=== PATIENT | female | born 1985 | race American Indian/Alaskan Native ===

== ENCOUNTER 2017-07-20 19:43 | Inpatient (IN) | payer OTHER ==
[2017-07-20 20:53] LABS: Mean Corpuscular HGB Conc 31 % (30-34); Platelet Count 333 K/mm3 (140-440); Red Blood Count 6.82 M/mm3 (3.65-5.03); Red Cell Distribution Width 19.9 % (13.2-15.2)
[2017-07-20 21:00] LABS: Alanine Aminotransferase 13 units/L (7-56); Albumin 3.4 g/dL (3.9-5); BUN/Creatinine Ratio 60; Blood Urea Nitrogen 12 mg/dL (7-17); Hemolysis Index 8
[2017-07-20 21:07] LABS: Hematocrit 43.3 % (30.3-42.9); Hemoglobin 13.4 gm/dl (10.1-14.3); Mean Corpuscular Volume 63 fl (79-97)
[2017-07-20 21:08] LABS: Mean Corpuscular Hemoglobin 20 pg (28-32)
[2017-07-20 21:10] LABS: Calcium 9.3 mg/dL (8.4-10.2)
[2017-07-20] MEDS ORDERED: ZOFRAN IV ONE (21:15)
[2017-07-20] MEDS ORDERED: NACL 0.9% 1000 ML 1,000 ML IV ONE ×2 (21:15→23:27)
[2017-07-20] MEDS ORDERED: MORPHINE IV ONE (21:15)
--- NOTE | 2017-07-20 21:19 | Emergency Department Report ---
HPI - General Chief Complaint: Abdominal Pain Time Seen by Provider: 07/20/17 21:02 - HPI HPI: This is a 32 year-old female presents to the emergency department with a complaint of a one-week history of nausea, vomiting, diarrhea and some abdominal discomfort. She says that the vomiting started off occurring about once or twice per day but lately it has been much more consistent and now she is just bringing up bile. She has about 1-2 loose bowel movements per day. The abdominal pain is more on the left side of the abdomen. She has not taken anything for her symptoms prior to presentation. No recent travel or sick contacts at home. She has a primary care physician, Dr. Stanton, but has not seen him regarding her symptoms. She has a history of hypothyroidism and [id number] diabetes on metformin. ED Past Medical Hx - Past Medical History Hx Hypertension: No Hx Congestive Heart Failure: No Hx Diabetes: Yes Hx Deep Vein Thrombosis: No Hx Renal Disease: No Hx Sickle Cell Disease: No Hx Seizures: No Hx Asthma: No Hx COPD: No Hx HIV: No - Surgical History Past Surgical History?: No - Social History Smoking Status: Never Smoker Substance Use Type: None - Medications Home Medications: Home Medications Medication Instructions Recorded Confirmed Last Taken Type Ciprofloxacin [Ciprofloxacin ORAL 500 mg PO Q12H #20 ml 04/20/16 07/20/17 Unknown Rx LIQ] Famotidine [Pepcid] 10 mg PO BID #20 tablet 04/20/16 07/20/17 Unknown Rx LORazepam [Ativan] 0.5 mg PO BID PRN #10 tab 04/20/16 07/20/17 Unknown Rx Methimazole [Tapazole] 10 mg PO Q24HR #30 tablet 04/20/16 07/20/17 Unknown Rx Metoprolol [Lopressor TAB] 25 mg PO BID #60 tablet 04/20/16 07/20/17 Unknown Rx hydrALAZINE [Apresoline TAB] 25 mg PO Q8HR #90 tablet 04/20/16 07/20/17 Unknown Rx metroNIDAZOLE [Flagyl TAB] 500 mg PO TID #30 tablet 04/20/16 07/20/17 Unknown Rx oxyCODONE /ACETAMINOPHEN [Percocet 1 tab PO QHS PRN #10 tablet 04/20/16 Unknown Rx 5/325 mg] ED Review of Systems ROS: Stated complaint: ABDOMINAL PAIN,VOMITING,HIGH HEART BEAT Other details as noted in HPI Comment: All other systems reviewed and negative Constitutional: denies: chills, fever Eyes: denies: eye pain, eye discharge, vision change ENT: denies: ear pain, throat pain Respiratory: denies: cough, shortness of breath, wheezing Cardiovascular: denies: chest pain, palpitations Gastrointestinal: abdominal pain, nausea, vomiting, diarrhea Genitourinary: denies: urgency, dysuria, discharge Musculoskeletal: denies: back pain, joint swelling, arthralgia Skin: denies: rash, lesions Neurological: denies: headache, weakness, paresthesias Physical Exam - Physical Exam Vital Signs: Vital Signs 07/20/17 07/20/17 20:05 20:58 Temperature 97.7 F Pulse Rate 140 H 120 H Respiratory 16 16 Rate Blood Pressure 153/111 Blood Pressure 188/112 [Left] O2 Sat by Pulse 98 95 Oximetry Physical Exam: GENERAL: The patient is well-developed well-nourished. HENT: Normocephalic. Atraumatic. Patient has moist mucous membranes. EYES: Extraocular motions are intact. Pupils equal reactive to light bilaterally. NECK: Supple. Trachea is midline. CHEST/LUNGS: Clear to auscultation. There is no respiratory distress noted. HEART/CARDIOVASCULAR: Regular. There is moderate tachycardia. There is no murmur. ABDOMEN: Abdomen is soft. There is some generalized tenderness to palpation of the abdomen. No guarding or rebound tenderness. Patient has normal bowel sounds. There is no abdominal distention. SKIN: There is no rash. There is no edema. There is no diaphoresis. NEURO: The patient is awake, alert, and oriented. The patient is cooperative. The patient has no focal neurologic deficits. The patient has normal speech. MUSCULOSKELETAL: There is no tenderness or deformity. There is no limitation range of motion. There is no evidence of acute injury. ED Course Vital Signs 07/20/17 07/20/17 20:05 20:58 Temperature 97.7 F Pulse Rate 140 H 120 H Respiratory 16 16 Rate Blood Pressure 153/111 Blood Pressure 188/112 [Left] O2 Sat by Pulse 98 95 Oximetry ED Medical Decision Making - Lab Data Result diagrams: 07/20/17 20:11 07/20/17 20:11 - Radiology Data Radiology results: report reviewed, image reviewed interpreted by me: Abdominal x-ray shows nonspecific nonobstructive bowel gas. EXAM: CT ABDOMEN PELVIS W CON HISTORY: Abd pain TECHNIQUE: Standard enhanced CT of the abdomen and pelvis. Coronal and sagittal reconstruction was also performed. Delayed imaging through the kidneys and bladder was obtained. Contrast: 100 mL Omnipaque 300 given IV. PRIORS: CT a/P 04/17/2016 FINDINGS: Within the abdomen, the liver, spleen, pancreas, gallbladder, adrenal glands, and kidneys are unremarkable. There is new shotty adenopathy in the para-aortic region bilaterally and within the mesentery. Significance is uncertain. There are a few small loops of proximal small bowel which are mildly distended measuring up to 3.6 cm in the upper abdomen. The significance is uncertain. No transition zone is seen to suggest obstruction. No fluid collection, inflammatory change, or free air is seen within the abdomen or pelvis. The appendix is normal. Within the pelvis, the bladder is unremarkable. The uterus is normal. There is a new 5.0 x 5.7 x 4.4 cm cystic focus in the right adnexa, likely an ovarian cyst. Images through the upper abdomen include the lung bases which are expanded and clear. Bony structures show no focal abnormalities and are intact. IMPRESSION: 1. Mild distention of a few proximal loops of small bowel in the upper abdomen. Findings suggest a mild ileus, possibly viral gastroenteritis. 2. New shotty adenopathy in the retroperitoneum and mesentery. Significance is uncertain.. Findings may be reactive 3. A large new 5 cm cyst in the right adnexa, likely ovarian. Transcribed By: [facility] Dictated By: SUNDEEP BURROWS MD Electronically Authenticated By: SUNDEEP BURROWS MD Signed Date/Time: 07/20/171911 - Medical Decision Making Patient presents with one-week history of nausea, vomiting and diarrhea. She appears to have dehydration with 80 ketones in the urine. She has moderate tachycardia that may be secondary to her dehydration and her discomfort but also may be consistent with her history of hyperthyroidism. TSH was basically 0 , and free T4 of [address] of the abdomen and pelvis shows some gastroenteritis versus ileus, some adenopathy and a right adnexal cyst. Patient will be admitted to the hospital for further rehydration, rate control, evaluation and treatment, and has been accepted by the hospitalist, Dr. Montgomery. - Differential Diagnosis bowel obstruction, diverticulitis, colitis, gastroenteritis, thyrotoxicosis Critical Care Time: No Critical care attestation.: If time is entered above; I have spent that time in minutes in the direct care of this critically ill patient, excluding procedure time. ED Disposition Clinical Impression: Gastroenteritis, Colitis, Dehydration Nausea & vomiting Qualifiers: Vomiting type: unspecified Vomiting Intractability: non-intractable Qualified Code(s): R11.2 - Nausea with vomiting, unspecified Thyrotoxicosis Qualifiers: Thyrotoxicosis type: unspecified thyrotoxicosis type Thyrotoxic crisis or storm presence: with thyrotoxic crisis or storm Qualified Code(s): E05.91 - Thyrotoxicosis, unspecified with thyrotoxic crisis or storm Disposition: -09 OP ADMIT IP TO THIS HOSP Is pt being admited?: Yes Condition: Stable Time of Disposition: 23:50
[2017-07-20 22:39] LABS: Band Neutrophils # (Manual) 0.3 K/mm3; Total Cells Counted 100
[2017-07-20 22:40] LABS: Anisocytosis 2+
[2017-07-20 22:41] LABS: Hypochromasia 1+; Ovalocytes 1+
[2017-07-20 22:42] LABS: Platelet Estimate Consistent w Auto
--- NOTE | 2017-07-20 23:13 | XRay Report ---
FINAL REPORT PROCEDURE: XR ABDOMEN 2V TECHNIQUE: Abdominal series, including supine and upright AP views. HISTORY: Abd pain COMPARISON: No prior studies are available for comparison. FINDINGS: Bowel gas pattern:Nonobstructive . Masses or calcifications:None . Bony structures:No significant abnormality . Pneumoperitoneum:None . Other:No significant findings . IMPRESSION: No acute abnormality.
--- NOTE | 2017-07-20 23:15 | Cat Scan Report ---
FINAL REPORT EXAM: CT ABDOMEN PELVIS W CON HISTORY: Abd pain TECHNIQUE: Standard enhanced CT of the abdomen and pelvis. Coronal and sagittal reconstruction was also performed. Delayed imaging through the kidneys and bladder was obtained. Contrast: 100 mL Omnipaque 300 given IV. PRIORS: CT a/P 04/17/2016 FINDINGS: Within the abdomen, the liver, spleen, pancreas, gallbladder, adrenal glands, and kidneys are unremarkable. There is new shotty adenopathy in the para-aortic region bilaterally and within the mesentery. Significance is uncertain. There are a few small loops of proximal small bowel which are mildly distended measuring up to 3.6 cm in the upper abdomen. The significance is uncertain. No transition zone is seen to suggest obstruction. No fluid collection, inflammatory change, or free air is seen within the abdomen or pelvis. The appendix is normal. Within the pelvis, the bladder is unremarkable. The uterus is normal. There is a new 5.0 x 5.7 x 4.4 cm cystic focus in the right adnexa, likely an ovarian cyst. Images through the upper abdomen include the lung bases which are expanded and clear. Bony structures show no focal abnormalities and are intact. IMPRESSION: 1. Mild distention of a few proximal loops of small bowel in the upper abdomen. Findings suggest a mild ileus, possibly viral gastroenteritis. 2. New shotty adenopathy in the retroperitoneum and mesentery. Significance is uncertain.. Findings may be reactive 3. A large new 5 cm cyst in the right adnexa, likely ovarian.
[2017-07-20 23:17] LABS: Bacteria,Urine 1+ /HPF (Negative); Bilirubin,Urine NEG (Negative); Blood,Urine MOD (Negative); Calcium Oxalate Crystals,Urine 1+; Color,Urine Yellow (Yellow); Mucus,Urine 3+ /HPF; Nitrite,Urine NEG (Negative); Urobilinogen,Urine < 2.0 mg/dL (<2.0)
--- NOTE | 2017-07-20 23:51 | History and Physical Report ---
History of Present Illness Date of examination: 07/20/17 Date of admission: 07/20/2017 Chief complaint: chief complaint:Vomiting and diarrhea for 1 week History of present illness: History of present illness: 32-year-old -Al[place] female with history of diabetes hyperthyroidism and hypertension comes in for vomiting nausea and diarrhea associated with abdominal discomfort for 1 week. Initially the vomiting was twice a day and diarrhea about twice a day.over the last 7 days patient has been vomiting 5-6 times a day and loose bowel movements about 5-6 times a day. No fever no chills. No sick contacts. Pain is in the left lower quadrant .no syncope no lightheadedness. Past Medical History hypertension T2 DM gastroesophageal reflux disease and hyper thyroidism. Surgical History Past Surgical History?: No -Social History Smoking Status: Never Smoker Substance Use Type: None Medications Home Medications: Home Medications Medication Instructions Recorded Confirmed Last Taken Type Ciprofloxacin [Ciprofloxacin ORAL 500 mg PO Q12H #20 ml 04/20/16 07/20/17 Unknown Rx LIQ] Famotidine [Pepcid] 10 mg PO BID #20 tablet 04/20/16 07/20/17 Unknown Rx LORazepam [Ativan] 0.5 mg PO BID PRN #10 tab 04/20/16 07/20/17 Unknown Rx Methimazole [Tapazole] 10 mg PO Q24HR #30 tablet 04/20/16 07/20/17 Unknown Rx Metoprolol [Lopressor TAB] 25 mg PO BID #60 tablet 04/20/16 07/20/17 Unknown Rx hydrALAZINE [Apresoline TAB] 25 mg PO Q8HR #90 tablet 04/20/16 07/20/17 Unknown Rx metroNIDAZOLE [Flagyl TAB] 500 mg PO TID #30 tablet 04/20/16 07/20/17 Unknown Rx oxyCODONE /ACETAMINOPHEN [Percocet 1 tab PO QHS PRN #10 tablet 04/20/16 Unknown Rx 5/325 mg] Review of System: Constitutional: no fever, no chills, no weight loss Ears, eyes, nose, mouth and throat: no nasal congestion, no nasal discharge, no sinus pressure, no vision change, no red eye. Neck: No neck pain or rigidity. Cardiovascular: No chest pain, no orthopnea, no palpitations, no leg swelling Respiratory: No shortness of breath, no cough, no congestion, no wheezing Gastrointestinal: abdominal pain, nausea, vomiting and diarrhea for 1 week Genitourinary : no dysuria, no hematuria Musculoskeletal: no joint swelling or muscle ache Integumentary: no rash, no pruritis Neurological: no parathesias, no numbness, no tingling Endocrine: no cold or heat intolerance, no polyuria or polydipsia Hematologic/Lymphatic: no easy bruising, no easy bleeding, no gland swelling Allergic/Immunologic: no urticaria, no angioedema. Medications and Allergies Allergies Allergy/AdvReac Type Severity Reaction Status Date / Time No Known Allergies Allergy Verified 09/30/14 16:57 Home Medications Medication Instructions Recorded Confirmed Last Taken Type Ciprofloxacin [Ciprofloxacin ORAL 500 mg PO Q12H #20 ml 04/20/16 07/20/17 Unknown Rx LIQ] Famotidine [Pepcid] 10 mg PO BID #20 tablet 04/20/16 07/20/17 Unknown Rx LORazepam [Ativan] 0.5 mg PO BID PRN #10 tab 04/20/16 07/20/17 Unknown Rx Methimazole [Tapazole] 10 mg PO Q24HR #30 tablet 04/20/16 07/20/17 Unknown Rx Metoprolol [Lopressor TAB] 25 mg PO BID #60 tablet 04/20/16 07/20/17 Unknown Rx hydrALAZINE [Apresoline TAB] 25 mg PO Q8HR #90 tablet 04/20/16 07/20/17 Unknown Rx metroNIDAZOLE [Flagyl TAB] 500 mg PO TID #30 tablet 04/20/16 07/20/17 Unknown Rx oxyCODONE /ACETAMINOPHEN [Percocet 1 tab PO QHS PRN #10 tablet 04/20/16 Unknown Rx 5/325 mg] Active Meds: Active Medications Sodium Chloride (Nacl 0.9% 1000 Ml) 1,000 mls @ 999 mls/hr IV BOLUS ONE Stop: 07/21/17 00:27 Exam - Physical Exam Narrative exam: lying comfortably - Constitutional Vitals: Temp Pulse Resp BP Pulse Ox 97.7 F 127 H 16 152/87 95 07/20/17 20:05 07/20/17 22:32 07/20/17 22:32 07/20/17 22:32 07/20/17 22:32 General appearance: Present: no acute distress - EENT Eyes: Present: PERRL, EOM intact ENT: hearing intact, clear oral mucosa - Neck Neck: Present: supple, normal ROM - Respiratory Respiratory effort: normal Respiratory: bilateral: CTA - Cardiovascular Heart rate: 80 Rhythm: regular Heart Sounds: Present: S1 & S2. Absent: rub, click - Extremities Extremities: no ischemia, pulses intact, pulses symmetrical, No edema Peripheral Pulses: within normal limits - Abdominal General gastrointestinal: Present: soft, non-tender, non-distended, normal bowel sounds Female genitourinary: Present: normal - Rectal Rectal Exam: normal rectal tone, stool brown - Integumentary Integumentary: Present: clear, warm, dry - Musculoskeletal Musculoskeletal: gait normal, strength equal bilaterally - Psychiatric Psychiatric: appropriate mood/affect, intact judgment & insight - Neurologic Neurologic: CNII-XII intact, moves all extremities - Allied Health Allied health notes reviewed: nursing, case management Results - Labs CBC & Chem 7: 07/20/17 20:11 07/20/17 20:11 Labs: Laboratory Last Values WBC 7.8 K/mm3 (4.5-11.0) 07/20/17 20:11 RBC 6.82 M/mm3 (3.65-5.03) H 07/20/17 20:11 Hgb 13.4 gm/dl (10.1-14.3) 07/20/17 20:11 Hct 43.3 % (30.3-42.9) H 07/20/17 20:11 MCV 63 fl (79-97) L 07/20/17 20:11 MCH 20 pg (28-32) L 07/20/17 20:11 MCHC 31 % (30-34) 07/20/17 20:11 RDW 19.9 % (13.2-15.2) H 07/20/17 20:11 Plt Count 333 K/mm3 (140-440) 07/20/17 20:11 [place] % (Auto) Bait Painter 07/20/17 20:11 Add Manual Diff Complete 07/20/17 20:11 Total Counted 100 07/20/17 20:11 Seg Neuts % (Manual) 58.0 % (40.0-70.0) 07/20/17 20:11 Band Neutrophils % 4.0 % 07/20/17 20:11 Lymphocytes % (Manual) 19.0 % (13.4-35.0) 07/20/17 20:11 Reactive Lymphs % (Man) 0 % 07/20/17 20:11 Monocytes % (Manual) 14.0 % (0.0-7.3) H 07/20/17 20:11 Eosinophils % (Manual) 3.0 % (0.0-4.3) 07/20/17 20:11 Basophils % (Manual) 2.0 % (0.0-1.8) H 07/20/17 20:11 Metamyelocytes % 0 % 07/20/17 20:11 Myelocytes % 0 % 07/20/17 20:11 Promyelocytes % 0 % 07/20/17 20:11 Blast Cells % 0 % 07/20/17 20:11 Nucleated RBC % Not Reportable 07/20/17 20:11 Seg Neutrophils # Man 4.5 K/mm3 (1.8-7.7) 07/20/17 20:11 Band Neutrophils # 0.3 K/mm3 07/20/17 20:11 Lymphocytes # (Manual) 1.5 K/mm3 (1.2-5.4) 07/20/17 20:11 Abs React Lymphs (Man) 0.0 K/mm3 07/20/17 20:11 Monocytes # (Manual) 1.1 K/mm3 (0.0-0.8) H 07/20/17 20:11 Eosinophils # (Manual) 0.2 K/mm3 (0.0-0.4) 07/20/17 20:11 Basophils # (Manual) 0.2 K/mm3 (0.0-0.1) H 07/20/17 20:11 Metamyelocytes # 0.0 K/mm3 07/20/17 20:11 Myelocytes # 0.0 K/mm3 07/20/17 20:11 Promyelocytes # 0.0 K/mm3 07/20/17 20:11 Blast Cells # 0.0 K/mm3 07/20/17 20:11 WBC Morphology Not Reportable 07/20/17 20:11 Hypersegmented Neuts Not Reportable 07/20/17 20:11 Hyposegmented Neuts Not Reportable 07/20/17 20:11 Hypogranular Neuts Not Reportable 07/20/17 20:11 Smudge Cells Not Reportable 07/20/17 20:11 Toxic Granulation Not Reportable 07/20/17 20:11 Toxic Vacuolation Not Reportable 07/20/17 20:11 Dohle Bodies Not Reportable 07/20/17 20:11 Pelger-Huet Anomaly Not Reportable 07/20/17 20:11 Erwin Rods Not Reportable 07/20/17 20:11 Platelet Estimate Consistent w auto 07/20/17 20:11 Clumped Platelets Not Reportable 07/20/17 20:11 Plt Clumps, EDTA Not Reportable 07/20/17 20:11 Large Platelets Not Reportable 07/20/17 20:11 Giant Platelets Not Reportable 07/20/17 20:11 Platelet Satelliting Not Reportable 07/20/17 20:11 Plt Morphology Comment Not Reportable 07/20/17 20:11 RBC Morphology Not Reportable 07/20/17 20:11 Dimorphic RBCs Not Reportable 07/20/17 20:11 Polychromasia Few 07/20/17 20:11 Hypochromasia 1+ 07/20/17 20:11 Poikilocytosis Not Reportable 07/20/17 20:11 Anisocytosis 2+ 07/20/17 20:11 Microcytosis 3+ 07/20/17 20:11 Macrocytosis Not Reportable 07/20/17 20:11 Spherocytes Not Reportable 07/20/17 20:11 Pappenheimer Bodies Not Reportable 07/20/17 20:11 Sickle Cells Not Reportable 07/20/17 20:11 Target Cells Not Reportable 07/20/17 20:11 Tear Drop Cells Not Reportable 07/20/17 20:11 Ovalocytes 1+ 07/20/17 20:11 Helmet Cells Not Reportable 07/20/17 20:11 Mann-Bransford Bodies Not Reportable 07/20/17 20:11 [place] Rings Not Reportable 07/20/17 20:11 [place] Cells Not Reportable 07/20/17 20:11 Bite Cells Not Reportable 07/20/17 20:11 Crenated Cell Not Reportable 07/20/17 20:11 Elliptocytes Not Reportable 07/20/17 20:11 Acanthocytes (Spur) Not Reportable 07/20/17 20:11 Rouleaux Not Reportable 07/20/17 20:11 Hemoglobin C Crystals Not Reportable 07/20/17 20:11 Schistocytes Not Reportable 07/20/17 20:11 Malaria parasites Not Reportable 07/20/17 20:11 Matti Bodies Not Reportable 07/20/17 20:11 Hem Pathologist Commnt No 07/20/17 20:11 Sodium 137 mmol/L (137-145) 07/20/17 20:11 Potassium 4.2 mmol/L (3.6-5.0) 07/20/17 20:11 Chloride 98.1 mmol/L (98-107) 07/20/17 20:11 Carbon Dioxide 19 mmol/L (22-30) L 07/20/17 20:11 Anion Gap 24 mmol/L 07/20/17 20:11 BUN 12 mg/dL (7-17) 07/20/17 20:11 Creatinine 0.2 mg/dL (0.7-1.2) L 07/20/17 20:11 Estimated GFR > 60 ml/min 07/20/17 20:11 BUN/Creatinine Ratio 60 % 07/20/17 20:11 Glucose 199 mg/dL (65-100) H 07/20/17 20:11 POC Glucose 190 (70-105) H 07/20/17 20:14 Calcium 9.3 mg/dL (8.4-10.2) 07/20/17 20:11 Total Bilirubin 0.40 mg/dL (0.1-1.2) 07/20/17 20:11 AST 12 units/L (5-40) 07/20/17 20:11 ALT 13 units/L (7-56) 07/20/17 20:11 Alkaline Phosphatase 182 units/L (35-129) H 07/20/17 20:11 Total Protein 7.8 g/dL (6.3-8.2) 07/20/17 20:11 Albumin 3.4 g/dL (3.9-5) L 07/20/17 20:11 Albumin/Globulin Ratio 0.8 % 07/20/17 20:11 Lipase 28 units/L (13-60) 07/20/17 20:11 TSH < 0.005 mlU/mL (0.270-4.200) L 07/20/17 20:11 Thyroxine (T4) > 24.9 ug/dL (4.0-12.0) H 07/20/17 20:11 HCG, Qual Negative (Negative) 07/20/17 20:11 Urine Color Yellow (Yellow) 07/20/17 22:35 Urine Turbidity Slightly-cloudy (Clear) 07/20/17 22:35 Urine pH 5.0 (5.0-7.0) 07/20/17 22:35 Ur Specific [place] 1.024 (1.003-1.030) 07/20/17 22:35 Urine Protein 100 mg/dl mg/dL (Negative) 07/20/17 22:35 Urine Glucose (UA) 150 mg/dL (Negative) 07/20/17 22:35 Urine Ketones 80 mg/dL (Negative) 07/20/17 22:35 Urine Blood Mod (Negative) 07/20/17 22:35 Urine Nitrite Neg (Negative) 07/20/17 22:35 Urine Bilirubin Neg (Negative) 07/20/17 22:35 Urine Urobilinogen < 2.0 mg/dL (<2.0) 07/20/17 22:35 Ur Leukocyte Esterase Neg (Negative) 07/20/17 22:35 Urine WBC (Auto) 6.0 /HPF (0.0-6.0) 07/20/17 22:35 Urine RBC (Auto) 10.0 /HPF (0.0-6.0) 07/20/17 22:35 U Epithel Cells (Auto) 1.0 /HPF (0-13.0) 07/20/17 22:35 Urine Bacteria (Auto) 1+ /HPF (Negative) 07/20/17 22:35 Calcium Oxalate Crystal 1+ 07/20/17 22:35 Urine Mucus 3+ /HPF 07/20/17 22:35 Short CBC 07/20/17 Range/Units 20:11 WBC 7.8 (4.5-11.0) K/mm3 Hgb 13.4 (10.1-14.3) gm/dl Hct 43.3 H (30.3-42.9) % Plt Count 333 (140-440) K/mm3 BMP 07/20/17 20:11 Sodium 137 Potassium 4.2 Chloride 98.1 Carbon Dioxide 19 L BUN 12 Creatinine 0.2 L Glucose 199 H Calcium 9.3 Liver Function 07/20/17 Range/Units 20:11 Total Bilirubin 0.40 (0.1-1.2) mg/dL AST 12 (5-40) units/L ALT 13 (7-56) units/L Alkaline Phosphatase 182 H (35-129) units/L Albumin 3.4 L (3.9-5) g/dL Urine 07/20/17 Range/Units 22:35 Urine Color Yellow (Yellow) Urine pH 5.0 (5.0-7.0) Ur Specific [place] 1.024 (1.003-1.030) Urine Protein 100 mg/dl (Negative) mg/dL Urine Glucose (UA) 150 (Negative) mg/dL - Imaging and Cardiology CT scan - abdomen: report reviewed (mild distention of proximal loops of mild ileus and gastroenteritis) Assessment and Plan Advance Directives: Yes (full code) VTE prophylaxis?: Chemical Plan of care discussed with patient/family: Yes - Patient Problems (1) Colitis Current Visit: Yes Status: Acute Plan to address problem: mild to moderate colitis. Patient started on IV fluids and IV Zofran. Reglan if necessary. Did not start the patient on Flagyl. At this point my differential diagnosis is in favor of viral gastroenteritis. It should be self limiting.. IV fluids to prevent dehydration (2) Gastroenteritis Current Visit: Yes Status: Acute Plan to address problem: as an colitis (3) Thyrotoxicosis Current Visit: Yes Status: Chronic Qualifiers: Thyrotoxicosis type: unspecified thyrotoxicosis type Thyrotoxic crisis or storm presence: with thyrotoxic crisis or storm Qualified Code(s): E05.91 - Thyrotoxicosis, unspecified with thyrotoxic crisis or storm Plan to address problem: Patient was not taking methimazole her TSH is low and thyroxine level is 24.[address] above normal. Methimazole initiated.Also propranolol 10 mg every 8 initiated (4) Dehydration Current Visit: Yes Status: Acute Plan to address problem: IV fluids and symptomatic treatment (5) T2DM (type 2 diabetes mellitus) Current Visit: Yes Status: Chronic Qualifiers: Diabetes mellitus complication status: without complication Plan to address problem: check hemoglobin A1c. Patient initiated on coverage. Accu-Cheks every 6hrs and moderate dose protocol for sliding scale. (6) Hypertension Current Visit: Yes Status: Chronic Qualifiers: Hypertension type: essential hypertension Qualified Code(s): I10 - Essential (primary) hypertension Plan to address problem: continue antihypertensives (7) DVT prophylaxis Current Visit: Yes Status: Chronic Plan to address problem: Lovenox 40 mg subcutaneous daily
[2017-07-21] MEDS: MORPHINE IV PRN ×4 (03:44→22:53)
[2017-07-21] MEDS ORDERED: REGLAN IV PRN (04:35)
[2017-07-21] MEDS ORDERED: TYLENOL PO PRN (04:35)
[2017-07-21] MEDS ORDERED: MORPHINE IV PRN (04:35)
[2017-07-21] MEDS ORDERED: MILK OF MAGNESIA PO PRN (04:35)
[2017-07-21] MEDS ORDERED: DILAUDID IV PRN (04:35)
[2017-07-21] MEDS ORDERED: ZOFRAN IV PRN (04:35)
[2017-07-21] MEDS ORDERED: PERCOCET 5/325 PO PRN (04:41)
[2017-07-21] MEDS: HEPARIN SUB-Q SCH ×3 (06:30→22:06)
[2017-07-21] MEDS: NACL 0.9% 1000 ML 1,000 ML IV SCH ×2 (07:14→15:57)
[2017-07-21] MEDS: APRESOLINE PO SCH ×3 (07:34→22:04)
[2017-07-21 07:51] LABS: Hematocrit 36.9 % (30.3-42.9); Hemoglobin 11.5 gm/dl (10.1-14.3); Mean Corpuscular HGB Conc 31 % (30-34); Platelet Count 239 K/mm3 (140-440); Red Blood Count 5.87 M/mm3 (3.65-5.03); Red Cell Distribution Width 19.6 % (13.2-15.2)
[2017-07-21 08:11] LABS: BUN/Creatinine Ratio 45; Blood Urea Nitrogen 9 mg/dL (7-17); Calcium 8.7 mg/dL (8.4-10.2); Hemolysis Index 0
[2017-07-21 08:18] LABS: Mean Corpuscular Hemoglobin 20 pg (28-32); Mean Corpuscular Volume 63 fl (79-97)
[2017-07-21] MEDS: TAPAZOLE PO SCH ×2 (09:01→19:03)
[2017-07-21] MEDS: INDERAL PO SCH ×2 (09:33→22:03)
[2017-07-21] MEDS: LOPRESSOR PO SCH ×2 (09:34→22:05)
[2017-07-21] MEDS: PEPCID IV SCH ×3 (09:34→22:06)
[2017-07-21] MEDS ORDERED: TAPAZOLE PO SCH (10:00)
[2017-07-21] MEDS ORDERED: DULCOLAX PR PRN (10:00)
[2017-07-21] MEDS ORDERED: ATIVAN PO PRN (10:00)
[2017-07-21 11:26] LABS: Anisocytosis 3+; Band Neutrophils # (Manual) 0.6 K/mm3; Basophils % (Manual) 0 % (0.0-1.8); Hypochromasia 2+; Total Cells Counted 100
[2017-07-21] MEDS: NOVOLOG SUB-Q SCH ×3 (12:43→18:38)
--- NOTE | 2017-07-21 14:59 | Progress Note ---
Assessment and Plan Assessment and plan: This is a 32-year-old history of hyperthyroidism presents with nausea vomiting diarrhea. CT abdomen and pelvis with IV contrast reported mild ileus possible viral gastroenteritis -Mild ileus: Downgrade diet, treat with anti-emetics -Colitis suspected viral per report; therefore, treat with symptomatic care -Acute gastroenteritis: symptomatic care, IV fluids -Hyperthyroidism: treated with Tapazole History Interval history: Patient was seen and examined. Follow-up on current diagnosis of diarrhea and nausea which are still present no vomiting. Overnight uneventful. Patient denies any chest pain, shortness breath, or severe headaches. Imaging, nursing note, chart, labs and old chart reviewed. Discussed with patient. Hospitalist Physical - Physical exam Narrative exam: GEN: WDWN, NAD, AWAKE, ALERT, ORIENTATED 3 HEENT: NCAT, EOMI, PERRL, OP Clear, exophthm NECK: supple, no adenopathy, no thyromegaly, no JVD CVS/HEART: Reg tachy NORMAL S1S2, NO JVD, pulses present bilaterally CHEST/LUNGS: CTA B, Symmetrical chest expansion, good air entry bilaterally GI/Abdomen: soft, NTND, good bowel sounds, no guarding or rebound /Bladder: no suprapubic tenderness, no CVA or paraspinal tenderness EXT/Skin: generalized ble edema, no obvious rash MSK: FROM x 4 Neuro: CN 2-12 grossly intact, no new focal deficits Psych: calm - Constitutional Vitals: Temp Pulse Resp BP Pulse Ox 98.5 F 104 H 16 144/83 98 07/21/17 07:53 07/21/17 09:34 07/21/17 07:53 07/21/17 09:34 07/21/17 07:53 General appearance: Present: no acute distress Results - Labs CBC & Chem 7: 07/21/17 07:38 07/21/17 07:38 Labs: Laboratory Last Values WBC 7.3 K/mm3 (4.5-11.0) 07/21/17 07:38 RBC 5.87 M/mm3 (3.65-5.03) H 07/21/17 07:38 Hgb 11.5 gm/dl (10.1-14.3) 07/21/17 07:38 Hct 36.9 % (30.3-42.9) D 07/21/17 07:38 MCV 63 fl (79-97) L 07/21/17 07:38 MCH 20 pg (28-32) L 07/21/17 07:38 MCHC 31 % (30-34) 07/21/17 07:38 RDW 19.6 % (13.2-15.2) H 07/21/17 07:38 Plt Count 239 K/mm3 (140-440) 07/21/17 07:38 [place] % (Auto) Foundry Helper 07/21/17 07:38 Add Manual Diff Complete 07/21/17 07:38 Total Counted 100 07/21/17 07:38 Seg Neutrophils % Foundry Helper 07/21/17 07:38 Seg Neuts % (Manual) 35.0 % (40.0-70.0) L 07/21/17 07:38 Band Neutrophils % 8.0 % 07/21/17 07:38 Lymphocytes % (Manual) 36.0 % (13.4-35.0) H 07/21/17 07:38 Reactive Lymphs % (Man) 0 % 07/21/17 07:38 Monocytes % (Manual) 12.0 % (0.0-7.3) H 07/21/17 07:38 Eosinophils % (Manual) 9.0 % (0.0-4.3) H 07/21/17 07:38 Basophils % (Manual) 0 % (0.0-1.8) 07/21/17 07:38 Metamyelocytes % 0 % 07/21/17 07:38 Myelocytes % 0 % 07/21/17 07:38 Promyelocytes % 0 % 07/21/17 07:38 Blast Cells % 0 % 07/21/17 07:38 Nucleated RBC % Not Reportable 07/21/17 07:38 Seg Neutrophils # Man 2.6 K/mm3 (1.8-7.7) 07/21/17 07:38 Band Neutrophils # 0.6 K/mm3 07/21/17 07:38 Lymphocytes # (Manual) 2.6 K/mm3 (1.2-5.4) 07/21/17 07:38 Abs React Lymphs (Man) 0.0 K/mm3 07/21/17 07:38 Monocytes # (Manual) 0.9 K/mm3 (0.0-0.8) H 07/21/17 07:38 Eosinophils # (Manual) 0.7 K/mm3 (0.0-0.4) H 07/21/17 07:38 Basophils # (Manual) 0.0 K/mm3 (0.0-0.1) 07/21/17 07:38 Metamyelocytes # 0.0 K/mm3 07/21/17 07:38 Myelocytes # 0.0 K/mm3 07/21/17 07:38 Promyelocytes # 0.0 K/mm3 07/21/17 07:38 Blast Cells # 0.0 K/mm3 07/21/17 07:38 WBC Morphology Not Reportable 07/21/17 07:38 Hypersegmented Neuts Not Reportable 07/21/17 07:38 Hyposegmented Neuts Not Reportable 07/21/17 07:38 Hypogranular Neuts Not Reportable 07/21/17 07:38 Smudge Cells Not Reportable 07/21/17 07:38 Toxic Granulation Not Reportable 07/21/17 07:38 Toxic Vacuolation Not Reportable 07/21/17 07:38 Dohle Bodies Not Reportable 07/21/17 07:38 Pelger-Huet Anomaly Not Reportable 07/21/17 07:38 Erwin Rods Not Reportable 07/21/17 07:38 Platelet Estimate Not Reportable 07/21/17 07:38 Clumped Platelets Not Reportable 07/21/17 07:38 Plt Clumps, EDTA Not Reportable 07/21/17 07:38 Large Platelets Not Reportable 07/21/17 07:38 Giant Platelets Not Reportable 07/21/17 07:38 Platelet Satelliting Not Reportable 07/21/17 07:38 Plt Morphology Comment Not Reportable 07/21/17 07:38 RBC Morphology Not Reportable 07/21/17 07:38 Dimorphic RBCs Not Reportable 07/21/17 07:38 Polychromasia Not Reportable 07/21/17 07:38 Hypochromasia 2+ 07/21/17 07:38 Poikilocytosis Not Reportable 07/21/17 07:38 Anisocytosis 3+ 07/21/17 07:38 Microcytosis 2+ 07/21/17 07:38 Macrocytosis Not Reportable 07/21/17 07:38 Spherocytes Not Reportable 07/21/17 07:38 Pappenheimer Bodies Not Reportable 07/21/17 07:38 Sickle Cells Not Reportable 07/21/17 07:38 Target Cells Not Reportable 07/21/17 07:38 Tear Drop Cells Not Reportable 07/21/17 07:38 Ovalocytes Not Reportable 07/21/17 07:38 Helmet Cells Not Reportable 07/21/17 07:38 Mann-[place] Bodies Not Reportable 07/21/17 07:38 [place] Rings Not Reportable 07/21/17 07:38 [place] Cells Not Reportable 07/21/17 07:38 Bite Cells Not Reportable 07/21/17 07:38 Crenated Cell Not Reportable 07/21/17 07:38 Elliptocytes Not Reportable 07/21/17 07:38 Acanthocytes (Spur) Not Reportable 07/21/17 07:38 Rouleaux Not Reportable 07/21/17 07:38 Hemoglobin C Crystals Not Reportable 07/21/17 07:38 Schistocytes Not Reportable 07/21/17 07:38 Malaria parasites Not Reportable 07/21/17 07:38 Matti Bodies Not Reportable 07/21/17 07:38 Hem Pathologist Commnt No 07/21/17 07:38 Sodium 141 mmol/L (137-145) 07/21/17 07:38 Potassium 3.7 mmol/L (3.6-5.0) 07/21/17 07:38 Chloride 104.3 mmol/L (98-107) 07/21/17 07:38 Carbon Dioxide 23 mmol/L (22-30) 07/21/17 07:38 Anion Gap 17 mmol/L 07/21/17 07:38 BUN 9 mg/dL (7-17) 07/21/17 07:38 Creatinine 0.2 mg/dL (0.7-1.2) L 07/21/17 07:38 Estimated GFR > 60 ml/min 07/21/17 07:38 BUN/Creatinine Ratio 45 % 07/21/17 07:38 Glucose 174 mg/dL (65-100) H 07/21/17 07:38 POC Glucose 260 (70-105) H 07/21/17 12:01 Hemoglobin A1c 13.7 % (4-6) H 07/21/17 07:38 Calcium 8.7 mg/dL (8.4-10.2) 07/21/17 07:38 Total Bilirubin 0.40 mg/dL (0.1-1.2) 07/20/17 20:11 AST 12 units/L (5-40) 07/20/17 20:11 ALT 13 units/L (7-56) 07/20/17 20:11 Alkaline Phosphatase 182 units/L (35-129) H 07/20/17 20:11 Total Protein 7.8 g/dL (6.3-8.2) 07/20/17 20:11 Albumin 3.4 g/dL (3.9-5) L 07/20/17 20:11 Albumin/Globulin Ratio 0.8 % 07/20/17 20: Lipase 28 units/L (13-60) 07/20/17 20:11 TSH < 0.005 mlU/mL (0.270-4.200) L 07/20/17 20:11 Thyroxine (T4) > 24.9 ug/dL (4.0-12.0) H 07/20/17 20:11 HCG, Qual Negative (Negative) 07/20/17 20: Urine Color Yellow (Yellow) 07/20/17 22:35 Urine Turbidity Slightly-cloudy (Clear) 07/20/17 22:35 Urine pH 5.0 (5.0-7.0) 07/20/17 22:35 Ur Specific [place] 1.024 (1.003-1.030) 07/20/17 22:35 Urine Protein 100 mg/dl mg/dL (Negative) 07/20/17 22:35 Urine Glucose (UA) 150 mg/dL (Negative) 07/20/17 22:35 Urine Ketones 80 mg/dL (Negative) 07/20/17 22:35 Urine Blood Mod (Negative) 07/20/17 22:35 Urine Nitrite Neg (Negative) 07/20/17 22:35 Urine Bilirubin Neg (Negative) 07/20/17 22:35 Urine Urobilinogen < 2.0 mg/dL (<2.0) 07/20/17 22:35 Ur Leukocyte Esterase Neg (Negative) 07/20/17 22:35 Urine WBC (Auto) 6.0 /HPF (0.0-6.0) 07/20/17 22:35 Urine RBC (Auto) 10.0 /HPF (0.0-6.0) 07/20/17 22:35 U Epithel Cells (Auto) 1.0 /HPF (0-13.0) 07/20/17 22:35 Urine Bacteria (Auto) 1+ /HPF (Negative) 07/20/17 22:35 Calcium Oxalate Crystal 1+ 07/20/17 22:35 Urine Mucus 3+ /HPF 07/20/17 22:35
[2017-07-22] MEDS: TAPAZOLE PO SCH ×3 (00:21→16:45)
[2017-07-22] MEDS: MORPHINE IV PRN (03:53)
[2017-07-22] MEDS: NOVOLOG SUB-Q SCH ×5 (06:17→18:00)
[2017-07-22] MEDS: HEPARIN SUB-Q SCH ×2 (06:18→15:00)
[2017-07-22] MEDS: APRESOLINE PO SCH ×2 (06:32→15:00)
[2017-07-22 07:31] LABS: Hematocrit 35.2 % (30.3-42.9); Mean Corpuscular HGB Conc 31 % (30-34); Platelet Count 221 K/mm3 (140-440); Red Blood Count 5.63 M/mm3 (3.65-5.03); Red Cell Distribution Width 19.1 % (13.2-15.2)
[2017-07-22 07:34] LABS: Mean Corpuscular Hemoglobin 20 pg (28-32); Mean Corpuscular Volume 63 fl (79-97)
[2017-07-22 07:54] LABS: BUN/Creatinine Ratio 25; Blood Urea Nitrogen 5 mg/dL (7-17); Calcium 8.7 mg/dL (8.4-10.2); Hemolysis Index 33
[2017-07-22 08:29] LABS: Total Cells Counted 100
[2017-07-22 08:30] LABS: Anisocytosis 2+; Hypochromasia 1+
[2017-07-22 08:31] LABS: Burr Cells 1+; Ovalocytes Few; Stomatocytes Few; Tear Drop Cells Few
[2017-07-22] MEDS: PEPCID IV SCH (09:41)
[2017-07-22] MEDS: INDERAL PO SCH (09:41)
[2017-07-22] MEDS: LOPRESSOR PO SCH (09:41)
[2017-07-22] MEDS ORDERED: K-DUR PO ONE (14:20)
--- NOTE | 2017-07-22 14:21 | Progress Note ---
Assessment and Plan Assessment and plan: This is a 32-year-old history of hyperthyroidism presents with nausea vomiting diarrhea. CT abdomen and pelvis with IV contrast reported mild ileus possible viral gastroenteritis -Mild ileus: Downgrade diet, treat with anti-emetics -Colitis suspected viral per report; therefore, treat with symptomatic care -Acute gastroenteritis: symptomatic care, IV fluids -Hyperthyroidism: treated with Tapazole History Interval history: Patient was seen and examined. Follow-up on current diagnosis of diarrhea, n/v resolved, asking for advance diet. stool still liquid, pt on clear liquid diet. Overnight uneventful. Patient denies any chest pain, shortness breath, or severe headaches. Imaging, nursing note, chart, labs and old chart reviewed. Discussed with patient. Hospitalist Physical - Physical exam Narrative exam: GEN: WDWN, NAD, AWAKE, ALERT, ORIENTATED 3 HEENT: NCAT, EOMI, PERRL, OP Clear, exophthm NECK: supple, no adenopathy, no thyromegaly, no JVD CVS/HEART: Reg tachy NORMAL S1S2, NO JVD, pulses present bilaterally CHEST/LUNGS: CTA B, Symmetrical chest expansion, good air entry bilaterally GI/Abdomen: soft, NTND, good bowel sounds, no guarding or rebound /Bladder: no suprapubic tenderness, no CVA or paraspinal tenderness EXT/Skin: generalized ble edema, no obvious rash MSK: FROM x 4 Neuro: CN 2-12 grossly intact, no new focal deficits Psych: calm - Constitutional Vitals: Temp Pulse Resp BP Pulse Ox 98.7 F 107 H 20 116/55 98 07/22/17 08:17 07/22/17 08:17 07/22/17 08:17 07/22/17 08:17 07/22/17 08:17 General appearance: Present: no acute distress Results - Labs CBC & Chem 7: 07/22/17 06:23 07/22/17 06:23 Labs: Laboratory Last Values WBC 5.3 K/mm3 (4.5-11.0) 07/22/17 06:23 RBC 5.63 M/mm3 (3.65-5.03) H 07/22/17 06:23 Hgb 11.0 gm/dl (10.1-14.3) 07/22/17 06:23 Hct 35.2 % (30.3-42.9) 07/22/17 06:23 MCV 63 fl (79-97) L 07/22/17 06:23 MCH 20 pg (28-32) L 07/22/17 06:23 MCHC 31 % (30-34) 07/22/17 06:23 RDW 19.1 % (13.2-15.2) H 07/22/17 06:23 Plt Count 221 K/mm3 (140-440) 07/22/17 06:23 [place] % (Auto) Spike Machine Operator 07/22/17 06:23 Add Manual Diff Complete 07/22/17 06:23 Total Counted 100 07/22/17 06:23 Seg Neutrophils % Spike Machine Operator 07/22/17 06:23 Seg Neuts % (Manual) 27.0 % (40.0-70.0) L 07/22/17 06:23 Band Neutrophils % 0 % 07/22/17 06:23 Lymphocytes % (Manual) 45.0 % (13.4-35.0) H 07/22/17 06:23 Reactive Lymphs % (Man) 0 % 07/22/17 06:23 Monocytes % (Manual) 22.0 % (0.0-7.3) H 07/22/17 06:23 Eosinophils % (Manual) 5.0 % (0.0-4.3) H 07/22/17 06:23 Basophils % (Manual) 1.0 % (0.0-1.8) 07/22/17 06:23 Metamyelocytes % 0 % 07/22/17 06:23 Myelocytes % 0 % 07/22/17 06:23 Promyelocytes % 0 % 07/22/17 06:23 Blast Cells % 0 % 07/22/17 06:23 Nucleated RBC % Not Reportable 07/22/17 06:23 Seg Neutrophils # Man 1.4 K/mm3 (1.8-7.7) L 07/22/17 06:23 Band Neutrophils # 0.0 K/mm3 07/22/17 06:23 Lymphocytes # (Manual) 2.4 K/mm3 (1.2-5.4) 07/22/17 06:23 Abs React Lymphs (Man) 0.0 K/mm3 07/22/17 06:23 Monocytes # (Manual) 1.2 K/mm3 (0.0-0.8) H 07/22/17 06:23 Eosinophils # (Manual) 0.3 K/mm3 (0.0-0.4) 07/22/17 06:23 Basophils # (Manual) 0.1 K/mm3 (0.0-0.1) 07/22/17 06:23 Metamyelocytes # 0.0 K/mm3 07/22/17 06:23 Myelocytes # 0.0 K/mm3 07/22/17 06:23 Promyelocytes # 0.0 K/mm3 07/22/17 06:23 Blast Cells # 0.0 K/mm3 07/22/17 06:23 WBC Morphology Not Reportable 07/22/17 06:23 Hypersegmented Neuts Not Reportable 07/22/17 06:23 Hyposegmented Neuts Not Reportable 07/22/17 06:23 Hypogranular Neuts Not Reportable 07/22/17 06:23 Smudge Cells Not Reportable 07/22/17 06:23 Toxic Granulation Not Reportable 07/22/17 06:23 Toxic Vacuolation Not Reportable 07/22/17 06:23 Dohle Bodies Not Reportable 07/22/17 06:23 Pelger-Huet Anomaly Not Reportable 07/22/17 06:23 Erwin Rods Not Reportable 07/22/17 06:23 Platelet Estimate Appears normal 07/22/17 06:23 Clumped Platelets Not Reportable 07/22/17 06:23 Plt Clumps, EDTA Not Reportable 07/22/17 06:23 Large Platelets Not Reportable 07/22/17 06:23 Giant Platelets Not Reportable 07/22/17 06:23 Platelet Satelliting Not Reportable 07/22/17 06:23 Plt Morphology Comment Not Reportable 07/22/17 06:23 RBC Morphology Not Reportable 07/22/17 06:23 Dimorphic RBCs Not Reportable 07/22/17 06:23 Polychromasia Not Reportable 07/22/17 06:23 Hypochromasia 1+ 07/22/17 06:23 Poikilocytosis Not Reportable 07/22/17 06:23 Anisocytosis 2+ 07/22/17 06:23 Microcytosis 2+ 07/22/17 06:23 Macrocytosis Not Reportable 07/22/17 06:23 Spherocytes Not Reportable 07/22/17 06:23 Pappenheimer Bodies Not Reportable 07/22/17 06:23 Sickle Cells Not Reportable 07/22/17 06:23 Target Cells Not Reportable 07/22/17 06:23 Tear Drop Cells Few 07/22/17 06:23 Ovalocytes Few 07/22/17 06:23 Stomatocytes Few 07/22/17 06:23 Helmet Cells Not Reportable 07/22/17 06:23 Mann-[place] Bodies Not Reportable 07/22/17 06:23 [place] Rings Not Reportable 07/22/17 06:23 [place] Cells 1+ 07/22/17 06:23 Bite Cells Not Reportable 07/22/17 06:23 Crenated Cell Not Reportable 07/22/17 06:23 Elliptocytes Not Reportable 07/22/17 06:23 Acanthocytes (Spur) Not Reportable 07/22/17 06:23 Rouleaux Not Reportable 07/22/17 06:23 Hemoglobin C Crystals Not Reportable 07/22/17 06:23 Schistocytes Not Reportable 07/22/17 06:23 Malaria parasites Not Reportable 07/22/17 06:23 Matti Bodies Not Reportable 07/22/17 06:23 Hem Pathologist Commnt No 07/22/17 06:23 Sodium 141 mmol/L (137-145) 07/22/17 06:23 Potassium 3.4 mmol/L (3.6-5.0) L 07/22/17 06:23 Chloride 105.2 mmol/L (98-107) 07/22/17 06:23 Carbon Dioxide 23 mmol/L (22-30) 07/22/17 06:23 Anion Gap 16 mmol/L 07/22/17 06:23 BUN 5 mg/dL (7-17) L 07/22/17 06:23 Creatinine < 0.2 mg/dL (0.7-1.2) L 07/22/17 06:23 Estimated GFR > 60 ml/min 07/22/17 06:23 BUN/Creatinine Ratio 25 % 07/22/17 06:23 Glucose 194 mg/dL (65-100) H 07/22/17 06:23 POC Glucose 151 (70-105) H 07/22/17 12:47 Hemoglobin A1c 13.7 % (4-6) H 07/21/17 07:38 Calcium 8.7 mg/dL (8.4-10.2) 07/22/17 06:23 Total Bilirubin 0.40 mg/dL (0.1-1.2) 07/20/17 20:11 AST 12 units/L (5-40) 07/20/17 20:11 ALT 13 units/L (7-56) 07/20/17 20:11 Alkaline Phosphatase 182 units/L (35-129) H 07/20/17 20:11 Total Protein 7.8 g/dL (6.3-8.2) 07/20/17 20:11 Albumin 3.4 g/dL (3.9-5) L 07/20/17 20:11 Albumin/Globulin Ratio 0.8 % 07/20/17 20:11 Lipase 28 units/L (13-60) 07/20/17 20:11 TSH < 0.005 mlU/mL (0.270-4.200) L 07/20/17 20:11 Thyroxine (T4) > 24.9 ug/dL (4.0-12.0) H 07/20/17 20:11 HCG, Qual Negative (Negative) 07/20/17 20: Urine Color Yellow (Yellow) 07/20/17 22:35 Urine Turbidity Slightly-cloudy (Clear) 07/20/17 22:35 Urine pH 5.0 (5.0-7.0) 07/20/17 22:35 Ur Specific [place] 1.024 (1.003-1.030) 07/20/17 22:35 Urine Protein 100 mg/dl mg/dL (Negative) 07/20/17 22:35 Urine Glucose (UA) 150 mg/dL (Negative) 07/20/17 22:35 Urine Ketones 80 mg/dL (Negative) 07/20/17 22:35 Urine Blood Mod (Negative) 07/20/17 22:35 Urine Nitrite Neg (Negative) 07/20/17 22:35 Urine Bilirubin Neg (Negative) 07/20/17 22:35 Urine Urobilinogen < 2.0 mg/dL (<2.0) 07/20/17 22:35 Ur Leukocyte Esterase Neg (Negative) 07/20/17 22:35 Urine WBC (Auto) 6.0 /HPF (0.0-6.0) 07/20/17 22:35 Urine RBC (Auto) 10.0 /HPF (0.0-6.0) 07/20/17 22:35 U Epithel Cells (Auto) 1.0 /HPF (0-13.0) 07/20/17 22:35 Urine Bacteria (Auto) 1+ /HPF (Negative) 07/20/17 22:35 Calcium Oxalate Crystal 1+ 07/20/17 22:35 Urine Mucus 3+ /HPF 07/20/17 22:35
--- NOTE | 2017-07-22 14:31 | Discharge Summary ---
Providers - Providers Date of Admission: 07/20/17 23:50 Date of discharge: 07/22/17 Attending physician: CELINA SORENSEN Primary care physician: RAFAEL AGOSTO Hospitalization Condition: Stable Hospital course: This is a 32-year-old history of hyperthyroidism presents with nausea vomiting diarrhea. CT abdomen and pelvis with IV contrast reported mild ileus possible viral gastroenteritis -Mild ileus: Downgrade diet, treat with anti-emetics -Colitis suspected viral per report; therefore, treat with symptomatic care, pt was already given cipro/flagyl prior to arrival -Acute gastroenteritis: symptomatic care, IV fluids -Hyperthyroidism: treated with Tapazole, dose to be adjusted. Disposition: DC-01 TO HOME OR SELFCARE Time spent for discharge: 35 minutes Core Measure Documentation - Palliative Care Palliative Care/ Comfort Measures: Not Applicable - Core Measures Any of the following diagnoses?: none - VTE Discharge Requirements Deep Vein Thrombosis/Pulmonary Embolism Present on Admission: No Has pt received <5 days of overlap therapy or INR<2.0: No Anticoagulant overlap therapy prescribed at discharge: No Contraindication No Overlap Therapy order at DC: Not Indicated Exam - Physical Exam Narrative exam: GEN: WDWN, NAD, AWAKE, ALERT, ORIENTATED 3 HEENT: NCAT, EOMI, PERRL, OP Clear, exophthm NECK: supple, no adenopathy, no thyromegaly, no JVD CVS/HEART: Reg tachy NORMAL S1S2, NO JVD, pulses present bilaterally CHEST/LUNGS: CTA B, Symmetrical chest expansion, good air entry bilaterally GI/Abdomen: soft, NTND, good bowel sounds, no guarding or rebound /Bladder: no suprapubic tenderness, no CVA or paraspinal tenderness EXT/Skin: generalized ble edema, no obvious rash MSK: FROM x 4 Neuro: CN 2-12 grossly intact, no new focal deficits Psych: calm - Constitutional Vitals: Temp Pulse Resp BP Pulse Ox 98.7 F 107 H 20 116/55 98 07/22/17 08:17 07/22/17 08:17 07/22/17 08:17 07/22/17 08:17 07/22/17 08:17 Plan Activity: other (no strenous activity until cleared by pcp) Diet: low salt Follow up with: RAFAEL AGOSTO MD [Primary Care Provider] - 3-5 Days Prescriptions: LORazepam [Ativan] 0.5 mg PO BID PRN #10 tab PRN Reason: Anxiety Methimazole [Tapazole] 5 mg PO Q24HR #30 tablet Propranolol [Inderal] 10 mg PO Q12HR #30 day
[2017-07-22 17:51] VITALS: BP 115/68
[2017-07-22] MEDS ORDERED: PEPCID PO SCH (22:00)
== END 2017-07-22 20:00 | disposition home or self-care (01) | DRG 392 ==
LOC: ED 19:43 → 3A 23:50
PROVIDERS: ADMIT Internal Medicine; ATTEND Internal Medicine
DX: K52.9 Noninfective gastroenteritis and colitis, unspecified (principal); K56.7 Ileus, unspecified; E05.90 Thyrotoxicosis, unspecified without thyrotoxic crisis or storm; E11.9 Type 2 diabetes mellitus without complications; E86.0 Dehydration; I10 Essential (primary) hypertension; K21.9 Gastro-esophageal reflux disease without esophagitis
CPT/HCPCS: 36415; 74019; 74177; 80048; 80053; 81001; 82962; 83036; 83690; 84436; 84443; 84481; 84703; 85007; 85025; 93005; 93010; 96374; 96375; J1644; J1815; J2270; J2405; J2765; J7030; Q9967

== ENCOUNTER 2017-09-13 17:05 | Inpatient (IN) | payer MEDICAID, OTHER ==
[2017-09-13] MEDS ORDERED: NACL 0.9% 1000 ML 1,000 ML IV ONE (19:41)
[2017-09-13] MEDS ORDERED: ZOFRAN IV ONE (19:41)
[2017-09-13] MEDS ORDERED: BENADRYL IV ONE (19:41)
[2017-09-13] MEDS ORDERED: NORCO 7.5/325 PO ONE (19:41)
--- NOTE | 2017-09-13 19:51 | Emergency Department Report ---
HPI - General Chief Complaint: Sore Throat Time Seen by Provider: 09/13/17 19:39 - HPI HPI: 32-year-old -[place] female comes in for complaint of sore throat and right ear pain headache that is very intense and isn't sharp pain. As well as postnasal drip. Patient reports that she's been nauseated and vomiting. She has a past medical history of diabetes hypertension and hyperthyroidism. Patient was last seen for her chronic disease was 2-1/2 months ago when she was here in our hospital. Patient should be taken propanolol and Tapazole has not been any medication. Patient reports that she is on metformin. She does complain of palpitations. He denies any dysuria no shortness of breath no chest pain no hematochezia, no vaginal bleeding, no vaginal discharge, no change in vision. Patient reports her headache phenomenon out of 10. ED Past Medical Hx - Past Medical History Hx Hypertension: Yes Hx Congestive Heart Failure: No Hx Diabetes: Yes Hx Deep Vein Thrombosis: No Hx Renal Disease: No Hx Sickle Cell Disease: No Hx Seizures: No Hx Asthma: No Hx COPD: No Hx HIV: No Additional medical history: thyroid - Surgical History Additional Surgical History: c sect - Social History Smoking Status: Never Smoker Substance Use Type: None - Medications Home Medications: Home Medications Medication Instructions Recorded Confirmed Last Taken Type Methimazole [Tapazole] 5 mg PO Q24HR #30 tablet 07/22/17 09/13/17 Unknown Rx metFORMIN [Glucophage] 500 mg PO BID 09/13/17 09/13/17 Unknown History ED Review of Systems ROS: Stated complaint: FLU LIKE SYMPTOMS Other details as noted in HPI Constitutional: denies: chills, fever ENT: ear pain, throat pain Respiratory: cough Cardiovascular: palpitations. denies: chest pain, dyspnea on exertion Endocrine: no symptoms reported Gastrointestinal: nausea, vomiting. denies: abdominal pain Genitourinary: denies: urgency, dysuria, discharge Musculoskeletal: denies: back pain, joint swelling, arthralgia Skin: denies: rash, lesions Neurological: headache (that's intense and sharp) Psychiatric: denies: anxiety, depression Hematological/Lymphatic: denies: easy bleeding, easy bruising Physical Exam - Physical Exam Vital Signs: Vital Signs 09/13/17 17:13 Temperature 98.5 F Pulse Rate 132 H Respiratory 18 Rate Blood Pressure 160/89 O2 Sat by Pulse 98 Oximetry Physical Exam: GENERAL APPEARANCE: Well developed, well nourished, in no acute distress. Appears ill SKIN: Inspection of the skin reveals no rashes, ulcerations or petechiae. HEENT: The sclerae were anicteric and conjunctivae were pink and moist. Extraocular movements were intact and pupils were equal, round, and reactive to light with normal accommodation. External inspection of the ears and nose showed no scars, lesions, or masses. Lips, teeth, and gums showed normal mucosa. The oral mucosa, hard and soft palate, tongue. posterior pharynx were and tonsils are erythematous and edematous NECK: Supple and symmetric. There was no thyroid enlargement, and no tenderness , or masses were felt. CHEST: Normal AP diameter and normal contour without any kyphoscoliosis. LUNGS: Auscultation of the lungs revealed normal breath sounds without any other adventitious sounds or rubs. CARDIOVASCULAR: There was a regular rhythm and tachycardic without any murmurs, gallops, rubs. The carotid pulses were normal and 2+ bilaterally without bruits. Peripheral pulses were 2+ and symmetric. ABDOMEN: Soft and nontender with normal bowel sounds. LYMPH NODES: No lymphadenopathy was appreciated in the neck, axillae or groin. MUSCULOSKELETAL: Gait was normal. There was no tenderness or effusions noted. Muscle strength and tone were normal. EXTREMITIES: No cyanosis, clubbing or edema. NEUROLOGIC: Alert and oriented x 3. Normal affect. Gait was normal. Sensation to touch was normal. ED Course Vital Signs 09/13/17 17:13 Temperature 98.5 F Pulse Rate 132 H Respiratory 18 Rate Blood Pressure 160/89 O2 Sat by Pulse 98 Oximetry ED Medical Decision Making - Lab Data Result diagrams: 09/13/17 19:57 09/13/17 19:57 - Medical Decision Making Patient has been evaluated with this provider fast track. I have ordered CT of head, normal saline IV, Zofran 8 mg, Exline 7.5 mg, CBC, BMP, TSH, rapid strep, and urinalysis. Discussed with patient that I'll reevaluate her when she gets studies back. Critical care attestation.: If time is entered above; I have spent that time in minutes in the direct care of this critically ill patient, excluding procedure time. ED Disposition Clinical Impression: Hyperthyroidism Pharyngitis Qualifiers: Pharyngitis/tonsillitis etiology: unspecified etiology Qualified Code(s): J02.9 - Acute pharyngitis, unspecified Disposition: DC-09 OP ADMIT IP TO THIS HOSP Is pt being admited?: Yes Does the pt Need Aspirin: Yes Condition: Stable
[2017-09-13] MEDS ORDERED: ZOFRAN ODT ONE (20:08)
[2017-09-13 20:10] LABS: Hematocrit 39.1 % (30.3-42.9); Hemoglobin 12.3 gm/dl (10.1-14.3); Mean Corpuscular HGB Conc 32 % (30-34); Mean Corpuscular Hemoglobin 21 pg (28-32); Mean Corpuscular Volume 65 fl (79-97); Platelet Count 257 K/mm3 (140-440); Red Blood Count 6.02 M/mm3 (3.65-5.03); Red Cell Distribution Width 18.9 % (13.2-15.2)
[2017-09-13] MEDS ORDERED: ZOFRAN ODT PO ONE (20:23)
[2017-09-13 20:27] LABS: BUN/Creatinine Ratio 33; Blood Urea Nitrogen 10 mg/dL (7-17); Calcium 9.2 mg/dL (8.4-10.2); Hemolysis Index 1
[2017-09-13 20:48] LABS: Basophils % (Manual) 0 % (0.0-1.8); Total Cells Counted 100
[2017-09-13 20:49] LABS: Anisocytosis 1+; Dohle Bodies 1+; Ovalocytes Few; Target Cells Few; Tear Drop Cells Few
--- NOTE | 2017-09-13 22:41 | Cat Scan Report ---
FINAL REPORT PROCEDURE: CT HEAD/BRAIN WO CON TECHNIQUE: Computerized tomography of the head was performed without contrast material. HISTORY: henderson COMPARISON: No prior studies are available for comparison. FINDINGS: Skull and scalp: Normal. Paranasal sinuses: Normal. Ventricles and subarachnoid spaces: Normal. Cerebrum: No evidence of hemorrhage, acute infarction or mass . Cerebellum and brainstem: No evidence of hemorrhage, acute infarction or mass. Vasculature: Normal. Comments: None. IMPRESSION: Normal Examination
[2017-09-13] MEDS ORDERED: K-DUR PO ONE (23:42)
--- NOTE | 2017-09-14 00:09 | XRay Report ---
FINAL REPORT EXAM: XR CHEST ROUTINE 2V HISTORY: palpitation TECHNIQUE: PA and lateral views of the chest were submitted. FINDINGS: The lungs are clear. Pleural fluid is not seen. The heart size is normal. The skeletal structures are well-maintained. IMPRESSION: Within normal limits.
[2017-09-14] MEDS ORDERED: D50W (25GM) Syringe IV PRN (01:12)
[2017-09-14] MEDS ORDERED: ZOFRAN IV PRN (01:14)
[2017-09-14 01:24] LABS: Bilirubin,Urine NEG (Negative); Blood,Urine NEG (Negative); Color,Urine Yellow (Yellow); Mucus,Urine 3+ /HPF; Urobilinogen,Urine < 2.0 mg/dL (<2.0)
[2017-09-14] MEDS: HEPARIN SUB-Q SCH ×3 (01:32→21:20)
[2017-09-14] MEDS: NACL 0.9% 1000 ML 1,000 ML IV SCH ×3 (04:22→21:20)
[2017-09-14 06:31] LABS: BUN/Creatinine Ratio 45; Blood Urea Nitrogen 9 mg/dL (7-17); Calcium 8.5 mg/dL (8.4-10.2); Hemolysis Index 0
[2017-09-14] MEDS ORDERED: HumuLIN R SUB-Q SCH ×2 (07:30→22:00)
[2017-09-14] MEDS: TYLENOL PO PRN ×2 (08:44→17:41)
[2017-09-14] MEDS: GLUCOPHAGE PO SCH ×2 (08:45→17:39)
[2017-09-14] MEDS: HumaLOG SUB-Q SCH ×4 (08:46→21:20)
[2017-09-14] MEDS: TAPAZOLE PO SCH (09:56)
[2017-09-14] MEDS ORDERED: TAPAZOLE PO SCH (10:00)
[2017-09-14] MEDS ORDERED: TENORMIN PO SCH (10:00)
[2017-09-14] MEDS ORDERED: LOPRESSOR PO SCH (10:00)
--- NOTE | 2017-09-14 19:11 | Progress Note ---
Assessment and Plan Assessment and plan: --Acute upper respiratory symptoms; continue supportive care, --Hypokalemia; replace per protocol and monitor levels --Palpitations; secondary to hyperthyroidism, continue beta blockers and methimazole --Hyperthyroidism; patient is on methimazole, noncompliant --Medical noncompliance; counseling done patient strongly advised to comply with medications and diet, verbalized understanding --Mild hyponatremia; replacement therapy with normal saline --Type 2 diabetes mellitus; Accu-Chek sliding scale coverage and ADA diet Oral diabetic medications --DVT prophylaxis; heparin Closely monitor the patient had just management as needed Patient needs to see plastic boat patcher as outpatient Possible discharge home tomorrow if stable History Interval history: Patient seen and examined this morning medical records reviewed Admitted the flulike symptoms and palpitations Known case of hyperthyroidism, noncompliant with medications Patient feels slightly better Denies chest pain Alert awake oriented 3 not in acute distress Vital signs reviewed Hospitalist Physical - Constitutional Vitals: Temp Pulse Resp BP Pulse Ox 98.5 F 105 H 16 141/77 100 09/14/17 13:07 09/14/17 16:48 09/14/17 13:07 09/14/17 16:48 09/14/17 16:48 General appearance: Present: no acute distress, well-nourished - EENT Eyes: Present: PERRL, EOM intact, exopthalmos - Neck Neck: Present: supple, normal ROM - Respiratory Respiratory effort: normal Respiratory: bilateral: diminished, negative: rales, rhonchi, wheezing - Cardiovascular Rhythm: regular Heart Sounds: Present: S1 & S2 (tachycardia) - Extremities Extremities: no ischemia, No edema - Abdominal General gastrointestinal: soft, non-tender, non-distended, normal bowel sounds - Integumentary Integumentary: Present: clear, warm - Psychiatric Psychiatric: appropriate mood/affect, cooperative - Neurologic Neurologic: CNII-XII intact, moves all extremities Results - Labs CBC & Chem 7: 09/13/17 19:57 09/14/17 05:26 Labs: Laboratory Last Values WBC 6.2 K/mm3 (4.5-11.0) 09/13/17 19:57 RBC 6.02 M/mm3 (3.65-5.03) H 09/13/17 19:57 Hgb 12.3 gm/dl (10.1-14.3) 18 19:57 Hct 39.1 % (30.3-42.9) 18 19:57 MCV 65 fl (79-97) L 18 19:57 MCH 21 pg (28-32) L 18 19:57 MCHC 32 % (30-34) 09/13/17 19:57 RDW 18.9 % (13.2-15.2) H 18 19:57 Plt Count 257 K/mm3 (140-440) 18 19:57 [place] % (Auto) [place] 09/13/17 19:57 Add Manual Diff Complete 09/13/17 19:57 Total Counted 100 09/13/17 19:57 Seg Neuts % (Manual) 57.0 % (40.0-70.0) 09/13/17 19:57 Band Neutrophils % 0 % 09/13/17 19:57 Lymphocytes % (Manual) 29.0 % (13.4-35.0) 09/13/17 19:57 Reactive Lymphs % (Man) 0 % 09/13/17 19:57 Monocytes % (Manual) 13.0 % (0.0-7.3) H 09/13/17 19:57 Eosinophils % (Manual) 1.0 % (0.0-4.3) 18 19:57 Basophils % (Manual) 0 % (0.0-1.8) 18 19:57 Metamyelocytes % 0 % 09/13/17 19:57 Myelocytes % 0 % 09/13/17 19:57 Promyelocytes % 0 % 09/13/17 19:57 Blast Cells % 0 % 09/13/17 19:57 Nucleated RBC % Not Reportable 09/13/17 19:57 Seg Neutrophils # Man 3.5 K/mm3 (1.8-7.7) 09/13/17 19:57 Band Neutrophils # 0.0 K/mm3 09/13/17 19:57 Lymphocytes # (Manual) 1.8 K/mm3 (1.2-5.4) 18 19:57 Abs React Lymphs (Man) 0.0 K/mm3 09/13/17 19:57 Monocytes # (Manual) 0.8 K/mm3 (0.0-0.8) 09/13/17 19:57 Eosinophils # (Manual) 0.1 K/mm3 (0.0-0.4) 09/13/17 19:57 Basophils # (Manual) 0.0 K/mm3 (0.0-0.1) 09/13/17 19:57 Metamyelocytes # 0.0 K/mm3 09/13/17 19:57 Myelocytes # 0.0 K/mm3 09/13/17 19:57 Promyelocytes # 0.0 K/mm3 09/13/17 19:57 Blast Cells # 0.0 K/mm3 09/13/17 19:57 WBC Morphology Not Reportable 09/13/17 19:57 Hypersegmented Neuts Not Reportable 09/13/17 19:57 Hyposegmented Neuts Not Reportable 09/13/17 19:57 Hypogranular Neuts Not Reportable 09/13/17 19:57 Smudge Cells Not Reportable 09/13/17 19:57 Toxic Granulation Not Reportable 09/13/17 19:57 Toxic Vacuolation Not Reportable 09/13/17 19:57 Dohle Bodies 1+ 09/13/17 19:57 Pelger-Huet Anomaly Not Reportable 09/13/17 19:57 Erwin Rods Not Reportable 09/13/17 19:57 Platelet Estimate Appears normal 09/13/17 19:57 Clumped Platelets Not Reportable 09/13/17 19:57 Plt Clumps, EDTA Not Reportable 09/13/17 19:57 Large Platelets Not Reportable 09/13/17 19:57 Giant Platelets Not Reportable 09/13/17 19:57 Platelet Satelliting Not Reportable 09/13/17 19:57 Plt Morphology Comment Not Reportable 09/13/17 19:57 RBC Morphology Not Reportable 09/13/17 19:57 Dimorphic RBCs Not Reportable 09/13/17 19:57 Polychromasia Not Reportable 09/13/17 19:57 Hypochromasia Not Reportable 09/13/17 19:57 Poikilocytosis Not Reportable 09/13/17 19:57 Anisocytosis 1+ 09/13/17 19:57 Microcytosis 1+ 09/13/17 19:57 Macrocytosis Not Reportable 09/13/17 19:57 Spherocytes Not Reportable 09/13/17 19:57 Pappenheimer Bodies Not Reportable 09/13/17 19:57 Sickle Cells Not Reportable 09/13/17 19:57 Target Cells Few 09/13/17 19:57 Tear Drop Cells Few 09/13/17 19:57 Ovalocytes Few 09/13/17 19:57 Helmet Cells Not Reportable 09/13/17 19:57 Mann-[place] Bodies Not Reportable 09/13/17 19:57 [place] Rings Not Reportable 09/13/17 19:57 Kiersten Cells Not Reportable 09/13/17 19:57 Bite Cells Not Reportable 09/13/17 19:57 Crenated Cell Not Reportable 09/13/17 19:57 Elliptocytes Not Reportable 09/13/17 19:57 Acanthocytes (Spur) Not Reportable 09/13/17 19:57 Rouleaux Not Reportable 09/13/17 19:57 Hemoglobin C Crystals Not Reportable 09/13/17 19:57 Schistocytes Not Reportable 09/13/17 19:57 Malaria parasites Not Reportable 09/13/17 19:57 Matti Bodies Not Reportable 09/13/17 19:57 Hem Pathologist Commnt No 09/13/17 19:57 Sodium 137 mmol/L (137-145) 09/14/17 05:26 Potassium 3.1 mmol/L (3.6-5.0) L 09/14/17 05:26 Chloride 98.0 mmol/L (98-107) 09/14/17 05:26 Carbon Dioxide 22 mmol/L (22-30) 09/14/17 05:26 Anion Gap 20 mmol/L 09/14/17 05:26 BUN 9 mg/dL (7-17) 09/14/17 05:26 Creatinine 0.2 mg/dL (0.7-1.2) L 09/14/17 05:26 Estimated GFR > 60 ml/min 09/14/17 05:26 BUN/Creatinine Ratio 45 % 09/14/17 05:26 Glucose 216 mg/dL (65-100) H 09/14/17 05:26 POC Glucose 201 (70-105) H 09/14/17 16:59 Calcium 8.5 mg/dL (8.4-10.2) 09/14/17 05:26 TSH < 0.005 mlU/mL (0.270-4.200) L 09/13/17 19:57 Free T4 6.54 ng/dL (0.76-1.46) H 09/13/17 21:34 HCG, Qual Negative (Negative) 09/13/17 19:57 Urine Color Yellow (Yellow) 09/13/17 23:31 Urine Turbidity Clear (Clear) 09/13/17 23:31 Urine pH 6.0 (5.0-7.0) 09/13/17 23:31 Ur Specific [place] 1.020 (1.003-1.030) 09/13/17 23:31 Urine Protein 30 mg/dl mg/dL (Negative) 09/13/17 23:31 Urine Glucose (UA) >=500 mg/dL (Negative) 09/13/17 23:31 Urine Ketones Neg mg/dL (Negative) 09/13/17 23:31 Urine Blood Neg (Negative) 09/13/17 23:31 Urine Nitrite Neg (Negative) 09/13/17 23:31 Urine Bilirubin Neg (Negative) 09/13/17 23:31 Urine Urobilinogen < 2.0 mg/dL (<2.0) 09/13/17 23:31 Ur Leukocyte Esterase Neg (Negative) 09/13/17 23:31 Urine WBC (Auto) 6.0 /HPF (0.0-6.0) 09/13/17 23:31 Urine RBC (Auto) 1.0 /HPF (0.0-6.0) 09/13/17 23:31 U Epithel Cells (Auto) 1.0 /HPF (0-13.0) 09/13/17 23:31 Urine Mucus 3+ /HPF 09/13/17 23:31 Group A Strep Rapid Negative (Negative) 09/13/17 Unknown
[2017-09-14] MEDS: LOPRESSOR PO SCH (21:19)
[2017-09-15 05:28] VITALS: BP 128/64
--- NOTE | 2017-09-15 07:19 | History and Physical Report ---
CHIEF COMPLAINT: Sore throat and complaining of rapid heartbeat. HISTORY OF PRESENT ILLNESS: The patient is a 32-year-old female who said she has been having sore throat with pain in the right ear and headache, and also palpitation. There is history of some postnasal drip, but there is no history of fever or chills. The patient also complained of about nausea and vomiting. The patient stated that she has been out of her hyperthyroid medication methimazole for about one month. Also, the patient stated that she has been out of propranolol. There is no history of chest pain, no history of shortness of breath and the patient was seen in the Emergency Room. PAST MEDICAL HISTORY: Pertinent for hypertension, diabetes mellitus, and hyperthyroidism. PAST SURGICAL HISTORY: Pertinent for . FAMILY HISTORY: Noncontributory. SOCIAL HISTORY: The patient does not smoke, does not drink alcohol, and does not use illicit drugs. MEDICATIONS: The patient is on famotidine, Pepcid 10 mg by mouth twice daily, metoprolol 25 mg by mouth twice daily, hydralazine 25 mg by mouth every 8 hours, Tylenol 325 mg every 4 hours as needed for fever and headache, ciprofloxacin 500 mg twice daily, Ativan 0.5 mg by mouth twice daily, methimazole 5 mg by mouth daily, Reglan 10 mg by mouth every 8 hours as needed for vomiting, propranolol 10 mg by mouth every 12 hours. The patient is also on metronidazole 500 mg by mouth 3 times daily. ALLERGIES: There are no known drug allergies. REVIEW OF SYSTEMS: CONSTITUTIONAL: There is no fever, no chills, no diaphoresis. HEENT: Headache present, sore throat present. CARDIOVASCULAR SYSTEM: There is no chest pain, but there is palpitation. RESPIRATORY SYSTEM: There is no shortness of breath. The patient is complaining of cough. GASTROINTESTINAL SYSTEM: Nausea and vomiting present. No abdominal pain, no diarrhea or constipation. NEUROLOGICAL SYSTEM: There is no numbness, no dizziness, and no altered mental status. MUSCULOSKELETAL SYSTEM: There is no joint pain, joint swelling. DERMATOLOGICAL SYSTEM: There is no skin rash or itching. GENITOURINARY: There is no dysuria, hematuria or flank pain. Rest of system review is normal. PHYSICAL EXAMINATION: GENERAL: At the time of exam, the patient was found to be alert, oriented x 3, and not in acute distress. VITAL SIGNS: Shows temperature of 98.5 degrees Fahrenheit, pulse of 117, respiratory rate of 18, blood pressure 141/77, O2 sat of 99% on room air. HEENT: Exam showed pupils are equal, round, and reactive to light and accommodation. Extraocular muscles are intact. NECK: Supple with no JVD or carotid bruit. CARDIOVASCULAR SYSTEM: Showed normal first and second heart sounds with no gallops, murmur or rubs, rapid heartbeat. RESPIRATORY SYSTEM: Showed good air entry on both sides of the lung with no abnormal breath sounds. GASTROINTESTINAL SYSTEM: Showed abdomen to be full, soft, and nontender with no organomegaly or rigidity. NEUROLOGIC: Exam shows no focal deficit. MUSCULOSKELETAL SYSTEM: Show no joint swelling or tenderness. DERMATOLOGICAL SYSTEM: Show no skin rash. GENITOURINARY SYSTEM: Showing no costovertebral angle tenderness. PERTINENT LABORATORY STUDIES: The patient had CBC done with normal white count, normal hemoglobin, and normal hematocrit. CBC with diff did show elevated monocyte count of 13, with normal segmented neutrophil. The patient's chemistry showed low sodium of 133, with low potassium at 3.3, low chloride of 91. The patient's TSH level is low with a value of 0.005, with elevated free T4, with a value of 6.54. The patient's glucose level was high with a value of 231. The patient also had rapid strep test done that came back negative. IMAGING STUDIES: The patient had a CT of the head without contrast done, which was unremarkable and also, the patient had chest x-ray done that is within normal limits. DIAGNOSES: 1. Hyperthyroidism. 2. Diabetes mellitus. 3. Sore throat. PLAN: The patient will be admitted to medical floor and will be on intravenous normal saline at 125 mL an hour. The patient will be on atenolol 25 mg daily and also will be on methimazole 5 mg by mouth daily. The patient will have basic metabolic panel checked in the morning and diet will be consistent carbohydrate diet with low-sodium diet. The patient will have Accu-Chek before meals and at bedtime. The patient will be on sliding scale using low-dose regular insulin for coverage. The patient will also be on Tylenol 650 mg every 6 hours for fever and headache. The will be on heparin 5000 units of q.12 hours for deep venous thrombosis prophylaxis. The patient will be on intravenous Zofran 4 mg every 6 hours of nausea and vomiting and Tylenol for fever and pain including sore throat. [facility]# [id number] OCN/NTS MTDD
[2017-09-15] MEDS: HumaLOG SUB-Q SCH ×2 (07:20→12:48)
[2017-09-15] MEDS: NACL 0.9% 1000 ML 1,000 ML IV SCH (07:39)
[2017-09-15] MEDS ORDERED: K-DUR PO ONE (08:00)
[2017-09-15] MEDS: HEPARIN SUB-Q SCH (10:17)
[2017-09-15] MEDS: TAPAZOLE PO SCH (10:17)
[2017-09-15] MEDS: LOPRESSOR PO SCH (10:17)
[2017-09-15] MEDS: GLUCOPHAGE PO SCH (10:18)
[2017-09-15 11:10] LABS: BUN/Creatinine Ratio 30; Blood Urea Nitrogen 6 mg/dL (7-17); Calcium 8.2 mg/dL (8.4-10.2); Hemolysis Index 22
--- NOTE | 2017-09-15 11:27 | Discharge Summary ---
Providers - Providers Date of Admission: 09/14/17 00:58 Date of discharge: 09/15/17 Attending physician: AVINASH HUTCHINSON Primary care physician: [facility] [employer] Hospitalization Reason for admission: sore throat and palpitations Condition: Stable Pertinent studies: CT head without contrast; no acute abnormality Chest x-ray; no acute abnormality Hospital course: Very pleasant 32-year-old -British female patient with significant past medical history of type 2 diabetes mellitus, hypothyroidism, noncompliant with medications because of social issues Admitted through emergency room with sore throat and palpitations Patient was initially evaluated, rapid step test was negative, symptomatically managed, vegetables but this is closely monitored, patient was on methimazole 5 mg, did not take for many months secondary to social issues. Patient advised to comply with treatment plan, verbalizes understanding Manage the patient with methimazole, beta blockers, with significant improvement Patient is comfortable in no new complaints Heart rate is controlled 90s, denies palpitation Exophthalmic changes slightly improved Vital signs stable, physical exam prior to discharge is unremarkable Patient is hemodynamically and clinically stable at discharge Discharge diagnosis: --Hyperthyroidism --Tachycardia --2 diabetes mellitus --Medical noncompliance Disposition: DC-01 TO HOME OR SELFCARE Time spent for discharge: 32 min Core Measure Documentation - Palliative Care Palliative Care/ Comfort Measures: Not Applicable - Core Measures Any of the following diagnoses?: none Exam - Constitutional Vitals: Temp Pulse Resp BP Pulse Ox 97.2 F L 100 H 20 128/64 100 09/15/17 05:27 09/15/17 08:04 09/15/17 05:27 09/15/17 05:27 09/15/17 05:27 General appearance: Present: no acute distress, well-nourished - EENT Eyes: Present: PERRL, EOM intact - Neck Neck: Present: supple, normal ROM - Respiratory Respiratory effort: normal Respiratory: bilateral: diminished, negative: rales, rhonchi, wheezing - Cardiovascular Rhythm: regular Heart Sounds: Present: S1 & S2 - Extremities Extremities: no ischemia, No edema - Abdominal General gastrointestinal: Present: soft, non-tender, non-distended, normal bowel sounds - Integumentary Integumentary: Present: clear, warm - Musculoskeletal Musculoskeletal: strength equal bilaterally - Psychiatric Psychiatric: appropriate mood/affect, cooperative - Neurologic Neurologic: CNII-XII intact, moves all extremities Plan Activity: no restrictions Diet: diabetic Additional Instructions: See private student records specialist as needed Follow up with: PRIMARY CAREMD [Primary Care Provider] - 3-5 Days ENMANUEL MACKEY MD [Staff Physician] - 7 Days Prescriptions: Methimazole [Tapazole] 5 mg PO Q24HR #30 tablet Metoprolol [Lopressor TAB] 25 mg PO BID #60 tablet
== END 2017-09-15 14:49 | disposition home or self-care (01) | DRG 644 ==
LOC: ED 17:05 → 4A 09-14 00:58
PROVIDERS: ADMIT Internal Medicine; ATTEND Internal Medicine
DX: E05.90 Thyrotoxicosis, unspecified without thyrotoxic crisis or storm (principal); E87.1 Hypo-osmolality and hyponatremia; E11.9 Type 2 diabetes mellitus without complications; I10 Essential (primary) hypertension; E87.6 Hypokalemia; J02.9 Acute pharyngitis, unspecified; Z79.84 Long term (current) use of oral hypoglycemic drugs; Z91.14 Patient's other noncompliance with medication regimen; Z71.89 Other specified counseling
CPT/HCPCS: 36415; 70450; 71046; 80048; 81001; 82962; 84439; 84443; 84481; 84703; 85007; 85025; 87116; 87430; 93005; 93010; J1200; J1644; J7030; Q0162

== ENCOUNTER → 2018-02-19 08:53 | Emergency (ER) | payer SELFPAY | END | disposition left against medical advice (07) | LOC: ED 08:53 | DX: R11.10 Vomiting, unspecified (principal); Z53.21 Procedure and treatment not carried out due to patient leaving prior to being seen by health care provider ==

== ENCOUNTER 2018-03-12 22:01 | Inpatient (IN) | payer MEDICAID ==
[2018-03-12] MEDS ORDERED: NACL 0.9% 1000 ML 1,000 ML IV ONE (22:49)
[2018-03-12 23:37] LABS: Mean Corpuscular HGB Conc 31 % (30-34); Platelet Count 329 K/mm3 (140-440); Red Blood Count 7.55 M/mm3 (3.65-5.03)
[2018-03-12 23:38] LABS: Hematocrit 42.9 % (30.3-42.9); Hemoglobin 13.3 gm/dl (10.1-14.3); Mean Corpuscular Hemoglobin 18 pg (28-32); Mean Corpuscular Volume 57 fl (79-97); Red Cell Distribution Width 20.5 % (13.2-15.2)
[2018-03-13] MEDS ORDERED: ZOFRAN IV ONE ×2 (00:08→01:54)
[2018-03-13] MEDS ORDERED: MORPHINE IV ONE ×2 (00:08→01:54)
[2018-03-13 00:11] LABS: Alanine Aminotransferase 12 units/L (7-56); Albumin 3.9 g/dL (3.9-5); BUN/Creatinine Ratio 27; Blood Urea Nitrogen 8 mg/dL (7-17); Calcium 9.9 mg/dL (8.4-10.2); Hemolysis Index 1
--- NOTE | 2018-03-13 00:11 | Emergency Department Report ---
ED Abdominal Pain HPI - General Chief Complaint: Abdominal Pain Stated Complaint: FAST HEART RATE,ABD PAIN AND VOMITINGX5 DAYS Time Seen by Provider: 03/13/18 00:04 Source: patient Mode of arrival: Ambulatory Limitations: No Limitations - History of Present Illness Initial Comments: hx of hyperthyroidism HTN and NIDDM, has been unable to tolerate medications including methiazole for past 5 days MD Complaint: abdominal pain -: Gradual, days(s) (5) Location: epigastric Radiation: RUQ, back Severity: severe Quality: cramping, sharp Consistency: constant Associated Symptoms: nausea, vomiting - Related Data LMP (females 10-50): this week Home Medications Medication Instructions Recorded Confirmed Last Taken metFORMIN [Glucophage] 500 mg PO BID 09/13/17 09/13/17 Unknown Previous Rx's Medication Instructions Recorded Last Taken Type Metoprolol [Lopressor TAB] 25 mg PO BID #60 tablet 09/15/17 Unknown Rx methIMAzole [Tapazole] 5 mg PO Q24HR #30 tablet 09/15/17 Unknown Rx Allergies Allergy/AdvReac Type Severity Reaction Status Date / Time No Known Allergies Allergy Verified 09/30/14 16:57 ED Review of Systems ROS: Stated complaint: FAST HEART RATE,ABD PAIN AND VOMITINGX5 DAYS Other details as noted in HPI Comment: All other systems reviewed and negative Constitutional: malaise Cardiovascular: denies: chest pain Gastrointestinal: abdominal pain, nausea, vomiting ED Past Medical Hx - Past Medical History Previous Medical History?: Yes Hx Hypertension: Yes Hx Congestive Heart Failure: No Hx Diabetes: Yes Hx Deep Vein Thrombosis: No Hx Renal Disease: No Hx Sickle Cell Disease: No Hx Seizures: No Hx Asthma: No Hx COPD: No Hx HIV: No Additional medical history: thyroid - Surgical History Past Surgical History?: Yes Additional Surgical History: c sect - Social History Smoking Status: Never Smoker Substance Use Type: None - Medications Home Medications: Home Medications Medication Instructions Recorded Confirmed Last Taken Type metFORMIN [Glucophage] 500 mg PO BID 09/13/17 09/13/17 Unknown History Metoprolol [Lopressor TAB] 25 mg PO BID #60 tablet 09/15/17 Unknown Rx methIMAzole [Tapazole] 5 mg PO Q24HR #30 tablet 09/15/17 Unknown Rx ED Physical Exam - General Limitations: No Limitations General appearance: alert, other (tearful, in obvious pain) - Head Head exam: Present: atraumatic, normocephalic - Eye Eye exam: Present: other (proptosis bilaterally). Absent: scleral icterus, periorbital swelling, periorbital tenderness - ENT ENT exam: Present: mucous membranes moist - Neck Neck exam: Present: normal inspection, tenderness, meningismus - Respiratory Respiratory exam: Present: normal lung sounds bilaterally, wheezes, rales, rhonchi. Absent: respiratory distress - Cardiovascular Cardiovascular Exam: Present: regular rate, normal rhythm, normal heart sounds. Absent: bradycardia, tachycardia, systolic murmur, diastolic murmur, rubs, gallop - GI/Abdominal GI/Abdominal exam: Present: soft, tenderness, guarding, normal bowel sounds. Absent: distended, rebound - Extremities Exam Extremities exam: Present: normal inspection - Back Exam Back exam: Present: normal inspection - Neurological Exam Neurological exam: Present: alert, oriented X3 - Psychiatric Psychiatric exam: Present: other (tearful) - Skin Skin exam: Present: warm, dry, intact, normal color. Absent: rash ED Course Vital Signs 03/12/18 03/13/18 03/13/18 22:41 00:14 00:57 Temperature 98.5 F 98.6 F Pulse Rate 135 H Respiratory 22 30 H 18 Rate Blood Pressure 146/98 Blood Pressure 112/76 [Right] O2 Sat by Pulse 99 99 Oximetry 03/13/18 03/13/18 02:09 02:20 Temperature Pulse Rate 123 H Respiratory 20 19 Rate Blood Pressure 123/75 Blood Pressure [Right] O2 Sat by Pulse 99 Oximetry ED Medical Decision Making - Lab Data Result diagrams: 03/12/18 23:08 03/12/18 23:08 Laboratory Results - last 72 hr 03/12/18 03/12/18 03/13/18 23:08 23:08 00:35 WBC 7.8 RBC 7.55 H Hgb 13.3 Hct 42.9 MCV 57 L MCH 18 L MCHC 31 RDW 20.5 H Plt Count 329 [place] % (Auto) Lead Vulcanizing Operator Add Manual Diff Complete Total Counted 100 Seg Neuts % (Manual) 46.0 Band Neutrophils % 0 Lymphocytes % (Manual) 36.0 H Reactive Lymphs % (Man) 0 Monocytes % (Manual) 16.0 H Eosinophils % (Manual) 2.0 Basophils % (Manual) 0 Metamyelocytes % 0 Myelocytes % 0 Promyelocytes % 0 Blast Cells % 0 Nucleated RBC % Not Reportable Seg Neutrophils # Man 3.6 Band Neutrophils # 0.0 Lymphocytes # (Manual) 2.8 Abs React Lymphs (Man) 0.0 Monocytes # (Manual) 1.2 H Eosinophils # (Manual) 0.2 Basophils # (Manual) 0.0 Metamyelocytes # 0.0 Myelocytes # 0.0 Promyelocytes # 0.0 Blast Cells # 0.0 WBC Morphology Not Reportable Hypersegmented Neuts Not Reportable Hyposegmented Neuts Not Reportable Hypogranular Neuts Not Reportable Smudge Cells Not Reportable Toxic Granulation Not Reportable Toxic Vacuolation Not Reportable Dohle Bodies Not Reportable Pelger-Huet Anomaly Not Reportable Erwin Rods Not Reportable Platelet Estimate Consistent w auto Clumped Platelets Not Reportable Plt Clumps, EDTA Not Reportable Large Platelets Rare Giant Platelets Not Reportable Platelet Satelliting Not Reportable Plt Morphology Comment Not Reportable RBC Morphology Not Reportable Dimorphic RBCs Not Reportable Polychromasia Not Reportable Hypochromasia 3+ Poikilocytosis Not Reportable Anisocytosis 1+ Microcytosis 1+ Macrocytosis Not Reportable Spherocytes Not Reportable Pappenheimer Bodies Not Reportable Sickle Cells Not Reportable Target Cells Not Reportable Tear Drop Cells Not Reportable Ovalocytes Not Reportable Helmet Cells Not Reportable [place] Bodies Not Reportable [place] Rings Not Reportable Kiersten Cells Not Reportable Bite Cells Not Reportable Crenated Cell Not Reportable Elliptocytes Not Reportable Acanthocytes (Spur) Not Reportable Rouleaux Not Reportable Hemoglobin C Crystals Not Reportable Schistocytes Not Reportable Malaria parasites Not Reportable Matti Bodies Not Reportable Hem Pathologist Commnt No Sodium 133 L Potassium 3.9 Chloride 92.7 L Carbon Dioxide 22 Anion Gap 22 BUN 8 Creatinine 0.3 L Estimated GFR > 60 BUN/Creatinine Ratio 27 Glucose 232 H Calcium 9.9 Total Bilirubin 0.40 AST 14 ALT 12 Alkaline Phosphatase 191 H Total Protein 8.4 H Albumin 3.9 Albumin/Globulin Ratio 0.9 HCG, Qual Negative - EKG Data -: EKG Interpreted by De EKG shows normal: sinus rhythm, axis, intervals, QRS complexes Rate: tachycardia - EKG Data 03/13/18 02:41 sinus tachycrdai rate [address] elevation time obtained 2220 - Radiology Data Radiology results: report reviewed cxr ap portable: no acute process CT a/p: mild little colitis, mild hyperemia and diffuse wall thickening of the colon with reactive lymphadenopathy - Medical Decision Making Ms. Sullivan presents with epigastric pain unable to tolerate home medications including methimazole and metformin. Ms. Sullivan has had several hospitalizations with similar presentation with GI consultation. I suspect thyrotoxicosis is the cause of ileus. However, I am concerned for inflammatory bowel disease with recurrent episodes. Admitted to hospitalist service. medications ordered in the ED include: methimazole, propanolol, hydrocortisone Critical care attestation.: If time is entered above; I have spent that time in minutes in the direct care of this critically ill patient, excluding procedure time. ED Disposition Clinical Impression: Thyrotoxicosis, Abdominal pain, Colitis Disposition: OP ADMIT IP TO THIS HOSP Is pt being admited?: Yes Does the pt Need Aspirin: No Condition: Stable Time of Disposition: 02:45
[2018-03-13 01:06] LABS: Basophils % (Manual) 0 % (0.0-1.8); Total Cells Counted 100
[2018-03-13 01:07] LABS: Anisocytosis 1+; Hypochromasia 3+; Large Platelets Rare; Platelet Estimate Consistent w Auto
[2018-03-13] MEDS ORDERED: INDERAL IV ONE (02:06)
--- NOTE | 2018-03-13 02:11 | Cat Scan Report ---
FINAL REPORT EXAM: CT ABDOMEN PELVIS W CON HISTORY: epigastric RUQ pain COMPARISON: CT abdomen pelvis from July 2017. TECHNIQUE: Contiguous axial images were obtained. Additional sagittal and coronal reformatted images were obtained. Administration of IV contrast given per institution protocol. Images submitted for interpretation. 100 cc Omnipaque [id number]. FINDINGS: Lung bases are clear. No calcified gallstones or biliary dilatation. Homogeneous enhancement of the liver. Spleen is borderline enlarged measuring 13 centimeters. Homogeneous enhancement the pancreas. No adrenal mass. No solid renal lesion. No hydronephrosis. Aorta and IVC normal in caliber. Urinary bladder, uterus, ovaries are grossly unremarkable. No free fluid in the pelvis. There is several borderline and mildly enlarged lymph nodes throughout the abdomen and pelvis. For example the left hemipelvis, there is a lymph node measuring 11 x 10 millimeters (series 2, image 156). In the left upper abdomen there is a 1.3 by 1.0 centimeter lymph node (series 2, image 46). Stomach is relatively decompressed. No adjacent fat stranding or fluid. Mild gastritis is not excluded. Mild hyperemia and diffuse wall thickening of the colon. The appendix is gas-filled and normal in caliber. Small bowel loops normal in caliber. Lumbar vertebral body heights are preserved. Mild degenerative changes of the lumbar spine. Bony pelvis is grossly intact. IMPRESSION: Findings concerning for mild little colitis. This is likely inflammatory or infectious in etiology. Stomach is decompressed with accentuation of the gastric wall. Mild gastritis is not excluded. No free air. Multiple borderline and mildly enlarged lymph nodes throughout the abdomen and pelvis similar to prior study. These may be reactive. Neoplastic process less likely but is not entirely excluded. Continue surveillance may be of benefit to ensure stability.
--- NOTE | 2018-03-13 02:30 | XRay Report ---
FINAL REPORT EXAM: XR CHEST 1V AP HISTORY: thyrotoxicosis COMPARISON: None available. FINDINGS: Frontal view(s) of the chest obtained. Cardiac silhouette within normal limits. No gross consolidation or effusion. No pneumothorax. IMPRESSION: No grossly acute findings.
[2018-03-13] MEDS ORDERED: TYLENOL PO PRN (03:40)
[2018-03-13] MEDS ORDERED: SODIUM CHLORIDE FLUSH SYRINGE 10 ML IV PRN (03:40)
--- NOTE | 2018-03-13 03:44 | History and Physical Report ---
History of Present Illness History of present illness: 32-year-old woman with a history of hypertension, diabetes, hyperthyroidism emergency room with movements of abdominal pain which has been ongoing over the last 1 week. Pain is in the left lower quadrant, epigastric and mid abdomen which he describes as sharp pain, constant, intensity 7/10, no radiation, she can't identify exacerbating or relieving factors. She has been using NSAIDs for the pain at all without any relief. She admits to nausea vomiting, diarrhea. Diarrhea is nonbloody, up to 5 times a day, no fever or chills. The patient presented with the symptoms in the past, she has been treated for colitis and was scheduled for outpatient colonoscopy but she has not followed up Review of systems Constitutional: no weight loss, chills, fever Ears, eyes, nose, mouth and throat: no nasal congestion, no nasal discharge, no sinus pressure, no vision change, no red eye. Neck: No neck pain or rigidity. Cardiovascular: no chest pain, palpitations Respiratory: no cough, shortness of breath Gastrointestinal: no hematochezia Genitourinary : no frequency , no hematuria Musculoskeletal: no joint swelling or muscle ache Integumentary: no rash, no pruritis Neurological: no parathesias, no numbness, no focal weakness Endocrine: no cold or heat intolerance, no polyuria or polydipsia Hematologic/Lymphatic: no easy bruising, no easy bleeding, no gland swelling Allergic/Immunologic: no urticaria, no angioedema. PAST MEDICAL HISTORY: hypertension, diabetes, hyperthyroidism PAST SURGICAL HISTORY: SOCIAL HISTORY: No alcohol, no drugs, tobacco FAMILY HISTORY: Hypertension Medications and Allergies Allergies Allergy/AdvReac Type Severity Reaction Status Date / Time No Known Allergies Allergy Verified 09/30/14 16:57 Home Medications Medication Instructions Recorded Confirmed Last Taken Type metFORMIN [Glucophage] 500 mg PO BID 09/13/17 09/13/17 Unknown History Metoprolol [Lopressor TAB] 25 mg PO BID #60 tablet 09/15/17 Unknown Rx methIMAzole [Tapazole] 5 mg PO Q24HR #30 tablet 09/15/17 Unknown Rx Active Meds: Active Medications Acetaminophen (Tylenol) 650 mg PO Q4H PRN PRN Reason: Pain MILD(1-3)/Fever >100.5/BUTLER Enoxaparin Sodium (Lovenox) 30 mg SUB-Q QDAY SHANNON Sodium Chloride (Nacl 0.9% 1000 Ml) 1,000 mls @ 150 mls/hr IV DIRECT SHANNON Levofloxacin/Dextrose (Levaquin 750mg/150ml) 750 mg in 150 mls @ 100 mls/hr IV Q24HR [facility]; Protocol Metronidazole (Flagyl 500 Mg/100 Ml) 500 mg in 100 mls @ 100 mls/hr IV Q8HR [facility] ; Protocol Morphine Sulfate (Morphine) 2 mg IV Q4H PRN PRN Reason: Pain, Moderate (4-6) Ondansetron HCl (Zofran) 4 mg IV Q4H PRN PRN Reason: Nausea And Vomiting Sodium Chloride (Sodium Chloride Flush Syringe 10 Ml) 10 ml IV BID SHANNON Sodium Chloride (Sodium Chloride Flush Syringe 10 Ml) 10 ml IV PRN PRN PRN Reason: LINE FLUSH Exam - Physical Exam Narrative exam: Gen. appearance: Patient lying in bed, no apparent distress HEENT: Normocephalic, atraumatic, pupils equally round and reactive to light, extraocular movement intact, and no sclericterus,. No JVD or thyromegaly or nodule,neck supple, no carotid bruit ,mucous membranes moist, no exudate or erythema Heart: S1, S2, regular rate and rhythm Lungs: Clear bilaterally, breathing comfortable Abdomen: Positive bowel sounds, tender mid abdomen, left lower quadrant, nondistended, no organomegaly Extremity:no edema cyanosis, clubbing Skin: no rash, dry, warm Neuro: Oriented 3, cranial nerves II-12 intact, speech is fluent, motor and sensory intact - Constitutional Vitals: Temp Pulse Resp BP Pulse Ox 98.6 F 123 H 19 123/75 99 03/13/18 00:14 03/13/18 02:20 03/13/18 02:20 03/13/18 02:20 03/13/18 02:20 Results - Labs CBC & Chem 7: 03/12/18 23:08 03/12/18 23:08 Labs: Abnormal lab results 03/12/18 03/12/18 Range/Units 23:08 23:08 RBC 7.55 H (3.65-5.03) M/mm3 MCV 57 L (79-97) fl MCH 18 L (28-32) pg RDW 20.5 H (13.2-15.2) % Lymphocytes % (Manual) 36.0 H (13.4-35.0) % Monocytes % (Manual) 16.0 H (0.0-7.3) % Monocytes # (Manual) 1.2 H (0.0-0.8) K/mm3 Sodium 133 L (137-145) mmol/L Chloride 92.7 L (98-107) mmol/L Creatinine 0.3 L (0.7-1.2) mg/dL Glucose 232 H (65-100) mg/dL Alkaline Phosphatase 191 H (35-129) units/L Total Protein 8.4 H (6.3-8.2) g/dL - Imaging and Cardiology CT scan - abdomen: report reviewed CT scan - pelvis: report reviewed Assessment and Plan Assessment Pancolitis Hypertension Diabetes Hyperthyroidism Plan Admit to medicine Start IV fluid, Levaquin, Flagyl IV morphine, consult GI check fingersticks initiate insulin sliding scale DVT
[2018-03-13] MEDS: NACL 0.9% 1000 ML 1,000 ML IV SCH ×2 (03:45→16:14)
[2018-03-13] MEDS: LEVAQUIN 750MG/150ML 750 MG/150 ML BAG IV SCH ×2 (04:27→14:21)
[2018-03-13] MEDS ORDERED: D50W (25GM) Syringe IV PRN (04:45)
[2018-03-13] MEDS: FLAGYL 500 MG/100 ML 500 MG/100 ML BAG IV SCH ×3 (06:24→22:29)
[2018-03-13] MEDS: MORPHINE IV PRN ×4 (06:25→20:25)
[2018-03-13] MEDS: ZOFRAN IV PRN (06:25)
[2018-03-13] MEDS: HumaLOG SUB-Q SCH ×4 (07:45→22:32)
[2018-03-13 07:49] LABS: Bilirubin,Urine NEG (Negative); Blood,Urine NEG (Negative); Color,Urine Yellow (Yellow); Mucus,Urine FEW /HPF; Protein,Urine <15 mg/dL mg/dL (Negative); Urobilinogen,Urine < 2.0 mg/dL (<2.0)
[2018-03-13] MEDS: LOVENOX SUB-Q SCH (10:00)
--- NOTE | 2018-03-13 10:40 | Gastroenterology Consultation ---
History of Present Illness - Reason for Consult Consult date: 03/13/18 colitis Requesting physician: DOMINIQUE HAMLIN - History of Present Illness Patient is a 32 y/o female with PMH HTN, DM, and hyperthyroidism who presented to ED with c/o abdominal pain with associated N/V, and diarrhea. CT scan upon admission showed mild little colitis with reactive lymphadenopathy (stable compared to previous imaging) to which GI has been consulted. This morning patient was resting in bed w/o acute distress. Reports continued abd pain. Pain is generalized but more predominate on left side. Nausea and vomiting are improved. Denies fever, CP, SOB, signs of bleeding or constipation. Bowel habits at baseline is 3 BMs per day with soft formed stool. Currently she is having BMs x 5/day with watery non-bloody stool. No recent abx therapy, travel, or ill contacts. No hx of Fhx of IBD. Patient is previously known to our service from past admissions with similar symptoms. Last consult was in 2015 but according to chart review she has been having intermittent episodes of these symptoms since at least 2013. An outpatient colonoscopy has been recommended, however she never followed up to have procedure done due to lack of insurance. Past History Past Medical History: diabetes, hypertension, other (hyperthyroidism) Past Surgical History: Social history: denies: smoking, alcohol abuse Family history: hypertension Medications and Allergies Allergies Allergy/AdvReac Type Severity Reaction Status Date / Time No Known Allergies Allergy Verified 09/30/14 16:57 Home Medications Medication Instructions Recorded Confirmed Last Taken Type metFORMIN [Glucophage] 500 mg PO BID 09/13/17 09/13/17 Unknown History Metoprolol [Lopressor TAB] 25 mg PO BID #60 tablet 09/15/17 Unknown Rx methIMAzole [Tapazole] 5 mg PO Q24HR #30 tablet 09/15/17 Unknown Rx Active Meds: Active Medications Acetaminophen (Tylenol) 650 mg PO Q4H PRN PRN Reason: Pain MILD(1-3)/Fever >100.5/BUTLER Dextrose (D50w (25gm) Syringe) 50 ml IV PRN PRN PRN Reason: Hypoglycemia Enoxaparin Sodium (Lovenox) 40 mg SUB-Q QDAY SHANNON Sodium Chloride (Nacl 0.9% 1000 Ml) 1,000 mls @ 150 mls/hr IV DIRECT HSANNON Last Admin: 03/13/18 03:45 Dose: 150 mls/hr Levofloxacin/Dextrose (Levaquin 750mg/150ml) 750 mg in 150 mls @ 100 mls/hr IV Q24HR [facility]; Protocol Last Admin: 03/13/18 04:27 Dose: 100 mls/hr Metronidazole (Flagyl 500 Mg/100 Ml) 500 mg in 100 mls @ 100 mls/hr IV Q8HR [facility] ; Protocol Last Admin: 03/13/18 06:24 Dose: 100 mls/hr Insulin Human Lispro (Humalog) 0 unit SUB-Q ACHS [facility]; Protocol Last Admin: 03/13/18 07:45 Dose: Not Given Morphine Sulfate (Morphine) 2 mg IV Q4H PRN PRN Reason: Pain, Moderate (4-6) Last Admin: 03/13/18 10:32 Dose: 2 mg Ondansetron HCl (Zofran) 4 mg IV Q4H PRN PRN Reason: Nausea And Vomiting Last Admin: 03/13/18 06:25 Dose: 4 mg Sodium Chloride (Sodium Chloride Flush Syringe 10 Ml) 10 ml IV BID SHANNON Sodium Chloride (Sodium Chloride Flush Syringe 10 Ml) 10 ml IV PRN PRN PRN Reason: LINE FLUSH Review of Systems - Review of Systems All systems: negative Gastrointestinal: abdominal pain, nausea, vomiting, diarrhea Exam - Constitutional Vital Signs: Temp Pulse Resp BP Pulse Ox 98.6 F 115 H 16 122/71 98 03/13/18 00:14 03/13/18 04:45 03/13/18 10:32 03/13/18 04:45 03/13/18 06:00 General appearance: no acute distress - Respiratory Respiratory: bilateral: CTA - Cardiovascular Rhythm: other (tachycardia) - Gastrointestinal General gastrointestinal: Present: soft, tender (mild generalized TTP), non- distended, normal bowel sounds - Neurologic Neurological: alert and oriented x3 - Labs CBC & Chem 7: 03/12/18 23:08 03/12/18 23:08 Lab Results: Laboratory Results - last 24 hr 03/12/18 03/12/18 03/13/18 23:08 23:08 00:35 WBC 7.8 RBC 7.55 H Hgb 13.3 Hct 42.9 MCV 57 L MCH 18 L MCHC 31 RDW 20.5 H Plt Count 329 [place] % (Auto) [employer] Human [employer] Director Add Manual Diff Complete Total Counted 100 Seg Neuts % (Manual) 46.0 Band Neutrophils % 0 Lymphocytes % (Manual) 36.0 H Reactive Lymphs % (Man) 0 Monocytes % (Manual) 16.0 H Eosinophils % (Manual) 2.0 Basophils % (Manual) 0 Metamyelocytes % 0 Myelocytes % 0 Promyelocytes % 0 Blast Cells % 0 Nucleated RBC % Not Reportable Seg Neutrophils # Man 3.6 Band Neutrophils # 0.0 Lymphocytes # (Manual) 2.8 Abs React Lymphs (Man) 0.0 Monocytes # (Manual) 1.2 H Eosinophils # (Manual) 0.2 Basophils # (Manual) 0.0 Metamyelocytes # 0.0 Myelocytes # 0.0 Promyelocytes # 0.0 Blast Cells # 0.0 WBC Morphology Not Reportable Hypersegmented Neuts Not Reportable Hyposegmented Neuts Not Reportable Hypogranular Neuts Not Reportable Smudge Cells Not Reportable Toxic Granulation Not Reportable Toxic Vacuolation Not Reportable Dohle Bodies Not Reportable Pelger-Huet Anomaly Not Reportable Erwin Rods Not Reportable Platelet Estimate Consistent w auto Clumped Platelets Not Reportable Plt Clumps, EDTA Not Reportable Large Platelets Rare Giant Platelets Not Reportable Platelet Satelliting Not Reportable Plt Morphology Comment Not Reportable RBC Morphology Not Reportable Dimorphic RBCs Not Reportable Polychromasia Not Reportable Hypochromasia 3+ Poikilocytosis Not Reportable Anisocytosis 1+ Microcytosis 1+ Macrocytosis Not Reportable Spherocytes Not Reportable Pappenheimer Bodies Not Reportable Sickle Cells Not Reportable Target Cells Not Reportable Tear Drop Cells Not Reportable Ovalocytes Not Reportable Helmet Cells Not Reportable [place] Bodies Not Reportable [place] Rings Not Reportable Kiersten Cells Not Reportable Bite Cells Not Reportable Crenated Cell Not Reportable Elliptocytes Not Reportable Acanthocytes (Spur) Not Reportable Rouleaux Not Reportable Hemoglobin C Crystals Not Reportable Schistocytes Not Reportable Malaria parasites Not Reportable Matti Bodies Not Reportable Hem Pathologist Commnt No Sodium 133 L Potassium 3.9 Chloride 92.7 L Carbon Dioxide 22 Anion Gap 22 BUN 8 Creatinine 0.3 L Estimated GFR > 60 BUN/Creatinine Ratio 27 Glucose 232 H POC Glucose Calcium 9.9 Total Bilirubin 0.40 AST 14 ALT 12 Alkaline Phosphatase 191 H Total Protein 8.4 H Albumin 3.9 Albumin/Globulin Ratio 0.9 HCG, Qual Negative Urine Color Urine Turbidity Urine pH Ur Specific [place] Urine Protein Urine Glucose (UA) Urine Ketones Urine Blood Urine Nitrite Urine Bilirubin Urine Urobilinogen Ur Leukocyte Esterase Urine WBC (Auto) Urine RBC (Auto) U Epithel Cells (Auto) Urine Mucus 03/13/18 03/13/18 07:15 07:43 WBC RBC Hgb Hct MCV MCH MCHC RDW Plt Count [place] % (Auto) Add Manual Diff Total Counted Seg Neuts % (Manual) Band Neutrophils % Lymphocytes % (Manual) Reactive Lymphs % (Man) Monocytes % (Manual) Eosinophils % (Manual) Basophils % (Manual) Metamyelocytes % Myelocytes % Promyelocytes % Blast Cells % Nucleated RBC % Seg Neutrophils # Man Band Neutrophils # Lymphocytes # (Manual) Abs React Lymphs (Man) Monocytes # (Manual) Eosinophils # (Manual) Basophils # (Manual) Metamyelocytes # Myelocytes # Promyelocytes # Blast Cells # WBC Morphology Hypersegmented Neuts Hyposegmented Neuts Hypogranular Neuts Smudge Cells Toxic Granulation Toxic Vacuolation Dohle Bodies Pelger-Huet Anomaly Erwin Rods Platelet Estimate Clumped Platelets Plt Clumps, EDTA Large Platelets Giant Platelets Platelet Satelliting Plt Morphology Comment RBC Morphology Dimorphic RBCs Polychromasia Hypochromasia Poikilocytosis Anisocytosis Microcytosis Macrocytosis Spherocytes Pappenheimer Bodies Sickle Cells Target Cells Tear Drop Cells Ovalocytes Helmet Cells [place] Bodies [place] Rings Kiersten Cells Bite Cells Crenated Cell Elliptocytes Acanthocytes (Spur) Rouleaux Hemoglobin C Crystals Schistocytes Malaria parasites Matti Bodies Hem Pathologist Commnt Sodium Potassium Chloride Carbon Dioxide Anion Gap BUN Creatinine Estimated GFR BUN/Creatinine Ratio Glucose POC Glucose 256 H Calcium Total Bilirubin AST ALT Alkaline Phosphatase Total Protein Albumin Albumin/Globulin Ratio HCG, Qual Urine Color Yellow Urine Turbidity Clear Urine pH 5.0 Ur Specific [place] 1.057 H Urine Protein <15 mg/dl Urine Glucose (UA) >=500 Urine Ketones 20 Urine Blood Neg Urine Nitrite Neg Urine Bilirubin Neg Urine Urobilinogen < 2.0 Ur Leukocyte Esterase Neg Urine WBC (Auto) 2.0 Urine RBC (Auto) 1.0 U Epithel Cells (Auto) < 1.0 Urine Mucus Few Assessment and Plan 1.abdominal pain 2.N/V 3.diarrhea -afebrile -WBC-WNL -H/H WNL -CT showed colitis and lymphadenopathy (stable compared to prior imaging) -etiology unclear- possible infectious vs IBD -patient has had multiple similar episodes over the past several years with no follow up on recommended outpatient colonoscopy due to lack of insurance -will order stool studies to r/o infection -patient will need a colonoscopy (consider as inpatient once tolerating PO intake is fails to improve) -start on clear liquids -continue empiric antibiotics and supportive care -will follow
--- NOTE | 2018-03-13 12:40 | Event Note ---
Date: 03/13/18 Patient was admitted earlier this morning for the management of colitis. GI consult appreciated. Continue management per H/P. restarted her home medications , and adjust insulin. Continue management per H&P
[2018-03-13] MEDS: TAPAZOLE PO SCH (14:26)
[2018-03-13] MEDS: SODIUM CHLORIDE FLUSH SYRINGE 10 ML IV SCH ×2 (14:34→22:33)
[2018-03-13] MEDS: LANTUS SUB-Q SCH (22:31)
[2018-03-13] MEDS: LOPRESSOR PO SCH (22:37)
[2018-03-14] MEDS ORDERED: DIFLUCAN PO ONE (01:15)
[2018-03-14] MEDS: FLAGYL 500 MG/100 ML 500 MG/100 ML BAG IV SCH ×3 (05:35→22:37)
[2018-03-14] MEDS: MORPHINE IV PRN ×3 (05:35→22:37)
[2018-03-14 06:14] LABS: Mean Corpuscular HGB Conc 30 % (30-34); Platelet Count 214 K/mm3 (140-440); Red Blood Count 5.83 M/mm3 (3.65-5.03)
[2018-03-14 06:19] LABS: Hemoglobin 10.2 gm/dl (10.1-14.3)
[2018-03-14 06:20] LABS: Hematocrit 33.6 % (30.3-42.9); Mean Corpuscular Hemoglobin 17 pg (28-32); Mean Corpuscular Volume 58 fl (79-97); Red Cell Distribution Width 20.4 % (13.2-15.2)
[2018-03-14] MEDS: HumaLOG SUB-Q SCH ×4 (07:30→22:50)
[2018-03-14 07:45] LABS: BUN/Creatinine Ratio 20; Blood Urea Nitrogen 6 mg/dL (7-17); Calcium 9.2 mg/dL (8.4-10.2); Hemolysis Index 0
[2018-03-14 08:49] LABS: Anisocytosis 1+; Hypochromasia 2+; Poikilocytosis 1+; Total Cells Counted 100
[2018-03-14 08:50] LABS: Platelet Estimate Cons; Tear Drop Cells Few
--- NOTE | 2018-03-14 09:43 | Gastroenterology Progress Note ---
Assessment and Plan 1.abdominal pain 2.N/V 3.diarrhea -afebrile -WBC-WNL -H/H WNL -stool studies pending -CT showed colitis and lymphadenopathy (stable compared to prior imaging) -etiology unclear- possible infectious vs IBD -patient has had multiple similar episodes over the past several years with no follow up on recommended outpatient colonoscopy due to lack of insurance -clinically, patient has continued abd pain. N/V now resolved. Tolerating liquids -will schedule for EGD/colonoscopy in am for further evaluation to r/o IBD -consider steroids based on above results -clear liquids today, then NPO after MN -INR in am -continue empiric antibiotics and supportive care -will follow Subjective Date of service: 03/14/18 Principal diagnosis: colitis Interval history: Patient resting in bed w/o acute distress. Reports continued abd pain but N/V has now resolved. Tolerating liquids. Objective - Constitutional Vitals: Temp Pulse Resp BP Pulse Ox 97.8 F 93 H 16 104/49 99 03/14/18 05:17 03/14/18 05:17 03/14/18 05:17 03/14/18 05:17 03/14/18 05:17 General appearance: no acute distress - Respiratory Respiratory: bilateral: CTA - Cardiovascular Rhythm: regular Heart Sounds: Present: S1 & S2 - Gastrointestinal General gastrointestinal: Present: soft, tender (slight generalized TTP), non- distended, normal bowel sounds - Neurologic Neurological: alert and oriented x3 - Labs CBC & Chem 7: 03/14/18 05:38 03/14/18 05:38 Labs: Laboratory Results - last 24 hr 03/13/18 03/13/18 03/13/18 11:36 16:35 22:05 WBC RBC Hgb Hct MCV MCH MCHC RDW Plt Count [place] % (Auto) Add Manual Diff Total Counted Seg Neutrophils % Seg Neuts % (Manual) Band Neutrophils % Lymphocytes % (Manual) Reactive Lymphs % (Man) Monocytes % (Manual) Eosinophils % (Manual) Basophils % (Manual) Metamyelocytes % Myelocytes % Promyelocytes % Blast Cells % Nucleated RBC % Seg Neutrophils # Man Band Neutrophils # Lymphocytes # (Manual) Abs React Lymphs (Man) Monocytes # (Manual) Eosinophils # (Manual) Basophils # (Manual) Metamyelocytes # Myelocytes # Promyelocytes # Blast Cells # WBC Morphology Hypersegmented Neuts Hyposegmented Neuts Hypogranular Neuts Smudge Cells Toxic Granulation Toxic Vacuolation Dohle Bodies Pelger-Huet Anomaly Erwin Rods Platelet Estimate Clumped Platelets Plt Clumps, EDTA Large Platelets Giant Platelets Platelet Satelliting Plt Morphology Comment RBC Morphology Dimorphic RBCs Polychromasia Hypochromasia Poikilocytosis Anisocytosis Microcytosis Macrocytosis Spherocytes Pappenheimer Bodies Sickle Cells Target Cells Tear Drop Cells Ovalocytes Helmet Cells Mann-[place] Bodies [place] Rings [place] Cells Bite Cells Crenated Cell Elliptocytes Acanthocytes (Spur) Rouleaux Hemoglobin C Crystals Schistocytes Malaria parasites Matti Bodies Hem Pathologist Commnt Sodium Potassium Chloride Carbon Dioxide Anion Gap BUN Creatinine Estimated GFR BUN/Creatinine Ratio Glucose POC Glucose 178 H 209 H 250 H Calcium 03/14/18 03/14/18 03/14/18 05:38 05:38 07:22 WBC 3.4 L RBC 5.83 H Hgb 10.2 D Hct 33.6 D MCV 58 L MCH 17 L MCHC 30 RDW 20.4 H Plt Count 214 [place] % (Auto) Professional Advisor Add Manual Diff Complete Total Counted 100 Seg Neutrophils % Professional Advisor Seg Neuts % (Manual) 21.0 L Band Neutrophils % 0 Lymphocytes % (Manual) 59.0 H Reactive Lymphs % (Man) 0 Monocytes % (Manual) 15.0 H Eosinophils % (Manual) 4.0 Basophils % (Manual) 1.0 Metamyelocytes % 0 Myelocytes % 0 Promyelocytes % 0 Blast Cells % 0 Nucleated RBC % Not Reportable Seg Neutrophils # Man 0.7 L Band Neutrophils # 0.0 Lymphocytes # (Manual) 2.0 Abs React Lymphs (Man) 0.0 Monocytes # (Manual) 0.5 Eosinophils # (Manual) 0.1 Basophils # (Manual) 0.0 Metamyelocytes # 0.0 Myelocytes # 0.0 Promyelocytes # 0.0 Blast Cells # 0.0 WBC Morphology Not Reportable Hypersegmented Neuts Not Reportable Hyposegmented Neuts Not Reportable Hypogranular Neuts Not Reportable Smudge Cells Not Reportable Toxic Granulation Not Reportable Toxic Vacuolation Not Reportable Dohle Bodies Not Reportable Pelger-Huet Anomaly Not Reportable Erwin Rods Not Reportable Platelet Estimate Cons Clumped Platelets Not Reportable Plt Clumps, EDTA Not Reportable Large Platelets Not Reportable Giant Platelets Not Reportable Platelet Satelliting Not Reportable Plt Morphology Comment Not Reportable RBC Morphology Not Reportable Dimorphic RBCs Not Reportable Polychromasia Not Reportable Hypochromasia 2+ Poikilocytosis 1+ Anisocytosis 1+ Microcytosis 2+ Macrocytosis Not Reportable Spherocytes Not Reportable Pappenheimer Bodies Not Reportable Sickle Cells Not Reportable Target Cells Not Reportable Tear Drop Cells Few Ovalocytes Not Reportable Helmet Cells Not Reportable Mann-[place] Bodies Not Reportable [place] Rings Not Reportable Kiersten Cells Not Reportable Bite Cells Not Reportable Crenated Cell Not Reportable Elliptocytes Few Acanthocytes (Spur) Not Reportable Rouleaux Not Reportable Hemoglobin C Crystals Not Reportable Schistocytes Not Reportable Malaria parasites Not Reportable Matti Bodies Not Reportable Hem Pathologist Commnt No Sodium 141 D Potassium 3.6 Chloride 107.6 H Carbon Dioxide 23 Anion Gap 14 BUN 6 L Creatinine 0.3 L Estimated GFR > 60 BUN/Creatinine Ratio 20 Glucose 168 H POC Glucose 151 H Calcium 9.2
[2018-03-14] MEDS: LOVENOX SUB-Q SCH (10:01)
[2018-03-14] MEDS: LEVAQUIN 750MG/150ML 750 MG/150 ML BAG IV SCH (10:01)
[2018-03-14] MEDS: TAPAZOLE PO SCH (10:02)
[2018-03-14] MEDS: LOPRESSOR PO SCH ×3 (10:02→22:50)
[2018-03-14] MEDS: SODIUM CHLORIDE FLUSH SYRINGE 10 ML IV SCH ×2 (10:03→22:38)
[2018-03-14] MEDS ORDERED: GOLYTELY PO ONE (11:00)
[2018-03-14] MEDS: ZOFRAN IV PRN (12:09)
--- NOTE | 2018-03-14 15:45 | Progress Note ---
Assessment and Plan Assessment and plan: 32-year-old -Luxembourger female with past medical history significant for diabetes, hypertension, hypothyroidism presented to the emergency department with complaints of nausea or vomiting and abdominal pain. In the emergency department, CT of the abdomen was done and showed pancolitis. Nausea, vomiting, abdominal pain Colitis - Patient is on IV antibiotics, IV fluids - Patient started with clear liquid diet and tolerated. - GI consult appreciated, they're going to do EGD or colonoscopy tomorrow. - Nothing by mouth after midnight, bowel prep Diabetes mellitus with hyperglycemia - Sliding-scale insulin coverage and basal insulin - Accu-Chek, consistent carb diet Hyperthyroidism - Patient started with her home dose of methimazole DVT prophylaxis - Lovenox Disposition - Continue inpatient care History Interval history: Patient was secondary to this morning, patient is still complaining pain. She tolerated clear liquid diet. Hospitalist Physical - Physical exam Narrative exam: Not in cardiopulmonary distress. The patient appeared well nourished and normally developed. Vital signs as documented. Head exam is unremarkable. No scleral icterus . Neck is without jugular venous distension, thyromegaly, or carotid bruits. Lungs are clear to auscultation. Cardiac exam reveals regular rate and Rhythm. First and second heart sounds normal. No murmurs, rubs or gallops. Abdominal exam reveals mild abdominal tenderness. Extremities are nonedematous and both femoral and pedal pulses are normal. EVALUATION SPECIALIST: Alert and oriented 3. No focal weakness. - Constitutional Vitals: Temp Pulse Resp BP Pulse Ox 99.1 F 107 H 18 124/63 100 03/14/18 11:20 03/14/18 11:20 03/14/18 11:20 03/14/18 11:20 03/14/18 11:20 Results - Labs CBC & Chem 7: 03/14/18 05:38 03/14/18 05:38 Labs: Laboratory Last Values WBC 3.4 K/mm3 (4.5-11.0) L 03/14/18 05:38 RBC 5.83 M/mm3 (3.65-5.03) H 03/14/18 05:38 Hgb 10.2 gm/dl (10.1-14.3) D 03/14/18 05:38 Hct 33.6 % (30.3-42.9) D 03/14/18 05:38 MCV 58 fl (79-97) L 03/14/18 05:38 MCH 17 pg (28-32) L 03/14/18 05:38 MCHC 30 % (30-34) 03/14/18 05:38 RDW 20.4 % (13.2-15.2) H 03/14/18 05:38 Plt Count 214 K/mm3 (140-440) 03/14/18 05:38 [place] % (Auto) President 03/14/18 05:38 Add Manual Diff Complete 03/14/18 05:38 Total Counted 100 03/14/18 05:38 Seg Neutrophils % President 03/14/18 05:38 Seg Neuts % (Manual) 21.0 % (40.0-70.0) L 03/14/18 05:38 Band Neutrophils % 0 % 03/14/18 05:38 Lymphocytes % (Manual) 59.0 % (13.4-35.0) H 03/14/18 05:38 Reactive Lymphs % (Man) 0 % 03/14/18 05:38 Monocytes % (Manual) 15.0 % (0.0-7.3) H 03/14/18 05:38 Eosinophils % (Manual) 4.0 % (0.0-4.3) 03/14/18 05:38 Basophils % (Manual) 1.0 % (0.0-1.8) 03/14/18 05:38 Metamyelocytes % 0 % 03/14/18 05:38 Myelocytes % 0 % 03/14/18 05:38 Promyelocytes % 0 % 03/14/18 05:38 Blast Cells % 0 % 03/14/18 05:38 Nucleated RBC % Not Reportable 03/14/18 05:38 Seg Neutrophils # Man 0.7 K/mm3 (1.8-7.7) L 03/14/18 05:38 Band Neutrophils # 0.0 K/mm3 03/14/18 05:38 Lymphocytes # (Manual) 2.0 K/mm3 (1.2-5.4) 03/14/18 05:38 Abs React Lymphs (Man) 0.0 K/mm3 03/14/18 05:38 Monocytes # (Manual) 0.5 K/mm3 (0.0-0.8) 03/14/18 05:38 Eosinophils # (Manual) 0.1 K/mm3 (0.0-0.4) 03/14/18 05:38 Basophils # (Manual) 0.0 K/mm3 (0.0-0.1) 03/14/18 05:38 Metamyelocytes # 0.0 K/mm3 03/14/18 05:38 Myelocytes # 0.0 K/mm3 03/14/18 05:38 Promyelocytes # 0.0 K/mm3 03/14/18 05:38 Blast Cells # 0.0 K/mm3 03/14/18 05:38 WBC Morphology Not Reportable 03/14/18 05:38 Hypersegmented Neuts Not Reportable 03/14/18 05:38 Hyposegmented Neuts Not Reportable 03/14/18 05:38 Hypogranular Neuts Not Reportable 03/14/18 05:38 Smudge Cells Not Reportable 03/14/18 05:38 Toxic Granulation Not Reportable 03/14/18 05:38 Toxic Vacuolation Not Reportable 03/14/18 05:38 Dohle Bodies Not Reportable 03/14/18 05:38 Pelger-Huet Anomaly Not Reportable 03/14/18 05:38 Erwin Rods Not Reportable 03/14/18 05:38 Platelet Estimate Cons 03/14/18 05:38 Clumped Platelets Not Reportable 03/14/18 05:38 Plt Clumps, EDTA Not Reportable 03/14/18 05:38 Large Platelets Not Reportable 03/14/18 05:38 Giant Platelets Not Reportable 03/14/18 05:38 Platelet Satelliting Not Reportable 03/14/18 05:38 Plt Morphology Comment Not Reportable 03/14/18 05:38 RBC Morphology Not Reportable 03/14/18 05:38 Dimorphic RBCs Not Reportable 03/14/18 05:38 Polychromasia Not Reportable 03/14/18 05:38 Hypochromasia 2+ 03/14/18 05:38 Poikilocytosis 1+ 03/14/18 05:38 Anisocytosis 1+ 03/14/18 05:38 Microcytosis 2+ 03/14/18 05:38 Macrocytosis Not Reportable 03/14/18 05:38 Spherocytes Not Reportable 03/14/18 05:38 Pappenheimer Bodies Not Reportable 03/14/18 05:38 Sickle Cells Not Reportable 03/14/18 05:38 Target Cells Not Reportable 03/14/18 05:38 Tear Drop Cells Few 03/14/18 05:38 Ovalocytes Not Reportable 03/14/18 05:38 Helmet Cells Not Reportable 03/14/18 05:38 Mann-[place] Bodies Not Reportable 03/14/18 05:38 [place] Rings Not Reportable 03/14/18 05:38 [place] Cells Not Reportable 03/14/18 05:38 Bite Cells Not Reportable 03/14/18 05:38 Crenated Cell Not Reportable 03/14/18 05:38 Elliptocytes Few 03/14/18 05:38 Acanthocytes (Spur) Not Reportable 03/14/18 05:38 Rouleaux Not Reportable 03/14/18 05:38 Hemoglobin C Crystals Not Reportable 03/14/18 05:38 Schistocytes Not Reportable 03/14/18 05:38 Malaria parasites Not Reportable 03/14/18 05:38 Matti Bodies Not Reportable 03/14/18 05:38 Hem Pathologist Commnt No 03/14/18 05:38 Sodium 141 mmol/L (137-145) D 03/14/18 05:38 Potassium 3.6 mmol/L (3.6-5.0) 03/14/18 05:38 Chloride 107.6 mmol/L (98-107) H 03/14/18 05:38 Carbon Dioxide 23 mmol/L (22-30) 03/14/18 05:38 Anion Gap 14 mmol/L 03/14/18 05:38 BUN 6 mg/dL (7-17) L 03/14/18 05:38 Creatinine 0.3 mg/dL (0.7-1.2) L 03/14/18 05:38 Estimated GFR > 60 ml/min 03/14/18 05:38 BUN/Creatinine Ratio 20 % 03/14/18 05:38 Glucose 168 mg/dL (65-100) H 03/14/18 05:38 POC Glucose 96 (70-105) 03/14/18 11:22 Calcium 9.2 mg/dL (8.4-10.2) 03/14/18 05:38 Total Bilirubin 0.40 mg/dL (0.1-1.2) 03/12/18 23:08 AST 14 units/L (5-40) 03/12/18 23:08 ALT 12 units/L (7-56) 03/12/18 23:08 Alkaline Phosphatase 191 units/L (35-129) H 03/12/18 23:08 Total Protein 8.4 g/dL (6.3-8.2) H 03/12/18 23:08 Albumin 3.9 g/dL (3.9-5) 03/12/18 23:08 Albumin/Globulin Ratio 0.9 % 03/12/18 23:08 HCG, Qual Negative (Negative) 03/13/18 00:35 Urine Color Yellow (Yellow) 03/13/18 07:15 Urine Turbidity Clear (Clear) 03/13/18 07:15 Urine pH 5.0 (5.0-7.0) 03/13/18 07:15 Ur Specific [place] 1.057 (1.003-1.030) H 03/13/18 07:15 Urine Protein <15 mg/dl mg/dL (Negative) 03/13/18 07:15 Urine Glucose (UA) >=500 mg/dL (Negative) 03/13/18 07:15 Urine Ketones 20 mg/dL (Negative) 03/13/18 07:15 Urine Blood Neg (Negative) 03/13/18 07:15 Urine Nitrite Neg (Negative) 03/13/18 07:15 Urine Bilirubin Neg (Negative) 03/13/18 07:15 Urine Urobilinogen < 2.0 mg/dL (<2.0) 03/13/18 07:15 Ur Leukocyte Esterase Neg (Negative) 03/13/18 07:15 Urine WBC (Auto) 2.0 /HPF (0.0-6.0) 03/13/18 07:15 Urine RBC (Auto) 1.0 /HPF (0.0-6.0) 03/13/18 07:15 U Epithel Cells (Auto) < 1.0 /HPF (0-13.0) 03/13/18 07:15 Urine Mucus Few /HPF 03/13/18 07:15
[2018-03-14] MEDS: LANTUS SUB-Q SCH (22:37)
[2018-03-14] MEDS: NACL 0.9% 1000 ML 1,000 ML IV SCH (22:38)
[2018-03-15] MEDS: FLAGYL 500 MG/100 ML 500 MG/100 ML BAG IV SCH ×2 (06:15→13:13)
[2018-03-15] MEDS: MORPHINE IV PRN (06:16)
[2018-03-15] MEDS: ZOFRAN IV PRN ×2 (06:22→17:22)
[2018-03-15] MEDS ORDERED: WATER FOR IRRIG STERILE IR ONE (07:54)
[2018-03-15] MEDS ORDERED: WATER FOR IRRIG STERILE ONE (07:55)
--- NOTE | 2018-03-15 08:02 | Progress Note ---
Assessment and Plan Assessment and plan: 32-year-old -T[place]anian female with past medical history significant for diabetes, hypertension, hypothyroidism presented to the emergency department with complaints of nausea or vomiting and abdominal pain. In the emergency department, CT of the abdomen was done and showed pancolitis. Nausea, vomiting, abdominal pain Colitis - Patient is on IV antibiotics, IV fluids - Patient started with clear liquid diet and tolerated. - GI consult appreciated, they're going to do EGD or colonoscopy today. - Nothing by mouth after midnight, bowel prep Diabetes mellitus with hyperglycemia - Sliding-scale insulin coverage and basal insulin - Accu-Chek, consistent carb diet Hyperthyroidism - Patient started with her home dose of methimazole DVT prophylaxis - Lovenox Disposition - Continue inpatient care History Interval history: Patient was secondary to this morning, patient is still complaining pain. She tolerated clear liquid diet. Hospitalist Physical - Physical exam Narrative exam: Not in cardiopulmonary distress. The patient appeared well nourished and normally developed. Vital signs as documented. Head exam is unremarkable. No scleral icterus . Neck is without jugular venous distension, thyromegaly, or carotid bruits. Lungs are clear to auscultation. Cardiac exam reveals regular rate and Rhythm. First and second heart sounds normal. No murmurs, rubs or gallops. Abdominal exam reveals mild abdominal tenderness. Extremities are nonedematous and both femoral and pedal pulses are normal. PRECISION ASSEMBLER BENCH: Alert and oriented 3. No focal weakness. - Constitutional Vitals: Temp Pulse Resp BP Pulse Ox 98.0 F 82 16 109/68 100 03/15/18 05:38 03/15/18 05:38 03/15/18 05:38 03/15/18 05:38 03/15/18 05:38 Results - Labs CBC & Chem 7: 03/14/18 05:38 03/14/18 05:38 Labs: Laboratory Last Values WBC 3.4 K/mm3 (4.5-11.0) L 03/14/18 05:38 RBC 5.83 M/mm3 (3.65-5.03) H 03/14/18 05:38 Hgb 10.2 gm/dl (10.1-14.3) D 03/14/18 05:38 Hct 33.6 % (30.3-42.9) D 03/14/18 05:38 MCV 58 fl (79-97) L 03/14/18 05:38 MCH 17 pg (28-32) L 03/14/18 05:38 MCHC 30 % (30-34) 03/14/18 05:38 RDW 20.4 % (13.2-15.2) H 03/14/18 05:38 Plt Count 214 K/mm3 (140-440) 03/14/18 05:38 [place] % (Auto) Motor Generator Set Operator 03/14/18 05:38 Add Manual Diff Complete 03/14/18 05:38 Total Counted 100 03/14/18 05:38 Seg Neutrophils % Motor Generator Set Operator 03/14/18 05:38 Seg Neuts % (Manual) 21.0 % (40.0-70.0) L 03/14/18 05:38 Band Neutrophils % 0 % 03/14/18 05:38 Lymphocytes % (Manual) 59.0 % (13.4-35.0) H 03/14/18 05:38 Reactive Lymphs % (Man) 0 % 03/14/18 05:38 Monocytes % (Manual) 15.0 % (0.0-7.3) H 03/14/18 05:38 Eosinophils % (Manual) 4.0 % (0.0-4.3) 03/14/18 05:38 Basophils % (Manual) 1.0 % (0.0-1.8) 03/14/18 05:38 Metamyelocytes % 0 % 03/14/18 05:38 Myelocytes % 0 % 03/14/18 05:38 Promyelocytes % 0 % 03/14/18 05:38 Blast Cells % 0 % 03/14/18 05:38 Nucleated RBC % Not Reportable 03/14/18 05:38 Seg Neutrophils # Man 0.7 K/mm3 (1.8-7.7) L 03/14/18 05:38 Band Neutrophils # 0.0 K/mm3 03/14/18 05:38 Lymphocytes # (Manual) 2.0 K/mm3 (1.2-5.4) 03/14/18 05:38 Abs React Lymphs (Man) 0.0 K/mm3 03/14/18 05:38 Monocytes # (Manual) 0.5 K/mm3 (0.0-0.8) 03/14/18 05:38 Eosinophils # (Manual) 0.1 K/mm3 (0.0-0.4) 03/14/18 05:38 Basophils # (Manual) 0.0 K/mm3 (0.0-0.1) 03/14/18 05:38 Metamyelocytes # 0.0 K/mm3 03/14/18 05:38 Myelocytes # 0.0 K/mm3 03/14/18 05:38 Promyelocytes # 0.0 K/mm3 03/14/18 05:38 Blast Cells # 0.0 K/mm3 03/14/18 05:38 WBC Morphology Not Reportable 03/14/18 05:38 Hypersegmented Neuts Not Reportable 03/14/18 05:38 Hyposegmented Neuts Not Reportable 03/14/18 05:38 Hypogranular Neuts Not Reportable 03/14/18 05:38 Smudge Cells Not Reportable 03/14/18 05:38 Toxic Granulation Not Reportable 03/14/18 05:38 Toxic Vacuolation Not Reportable 03/14/18 05:38 Dohle Bodies Not Reportable 03/14/18 05:38 Pelger-Huet Anomaly Not Reportable 03/14/18 05:38 Erwin Rods Not Reportable 03/14/18 05:38 Platelet Estimate Cons 03/14/18 05:38 Clumped Platelets Not Reportable 03/14/18 05:38 Plt Clumps, EDTA Not Reportable 03/14/18 05:38 Large Platelets Not Reportable 03/14/18 05:38 Giant Platelets Not Reportable 03/14/18 05:38 Platelet Satelliting Not Reportable 03/14/18 05:38 Plt Morphology Comment Not Reportable 03/14/18 05:38 RBC Morphology Not Reportable 03/14/18 05:38 Dimorphic RBCs Not Reportable 03/14/18 05:38 Polychromasia Not Reportable 03/14/18 05:38 Hypochromasia 2+ 03/14/18 05:38 Poikilocytosis 1+ 03/14/18 05:38 Anisocytosis 1+ 03/14/18 05:38 Microcytosis 2+ 03/14/18 05:38 Macrocytosis Not Reportable 03/14/18 05:38 Spherocytes Not Reportable 03/14/18 05:38 Pappenheimer Bodies Not Reportable 03/14/18 05:38 Sickle Cells Not Reportable 03/14/18 05:38 Target Cells Not Reportable 03/14/18 05:38 Tear Drop Cells Few 03/14/18 05:38 Ovalocytes Not Reportable 03/14/18 05:38 Helmet Cells Not Reportable 03/14/18 05:38 Mann-[place] Bodies Not Reportable 03/14/18 05:38 [place] Rings Not Reportable 03/14/18 05:38 [place] Cells Not Reportable 03/14/18 05:38 Bite Cells Not Reportable 03/14/18 05:38 Crenated Cell Not Reportable 03/14/18 05:38 Elliptocytes Few 03/14/18 05:38 Acanthocytes (Spur) Not Reportable 03/14/18 05:38 Rouleaux Not Reportable 03/14/18 05:38 Hemoglobin C Crystals Not Reportable 03/14/18 05:38 Schistocytes Not Reportable 03/14/18 05:38 Malaria parasites Not Reportable 03/14/18 05:38 Matti Bodies Not Reportable 03/14/18 05:38 Hem Pathologist Commnt No 03/14/18 05:38 Sodium 141 mmol/L (137-145) D 03/14/18 05:38 Potassium 3.6 mmol/L (3.6-5.0) 03/14/18 05:38 Chloride 107.6 mmol/L (98-107) H 03/14/18 05:38 Carbon Dioxide 23 mmol/L (22-30) 03/14/18 05:38 Anion Gap 14 mmol/L 03/14/18 05:38 BUN 6 mg/dL (7-17) L 03/14/18 05:38 Creatinine 0.3 mg/dL (0.7-1.2) L 03/14/18 05:38 Estimated GFR > 60 ml/min 03/14/18 05:38 BUN/Creatinine Ratio 20 % 03/14/18 05:38 Glucose 168 mg/dL (65-100) H 03/14/18 05:38 POC Glucose 107 (70-105) H 03/15/18 07:40 Calcium 9.2 mg/dL (8.4-10.2) 03/14/18 05:38 Total Bilirubin 0.40 mg/dL (0.1-1.2) 03/12/18 23:08 AST 14 units/L (5-40) 03/12/18 23:08 ALT 12 units/L (7-56) 03/12/18 23:08 Alkaline Phosphatase 191 units/L (35-129) H 03/12/18 23:08 Total Protein 8.4 g/dL (6.3-8.2) H 03/12/18 23:08 Albumin 3.9 g/dL (3.9-5) 03/12/18 23:08 Albumin/Globulin Ratio 0.9 % 03/12/18 23:08 HCG, Qual Negative (Negative) 03/13/18 00:35 Urine Color Yellow (Yellow) 03/13/18 07:15 Urine Turbidity Clear (Clear) 03/13/18 07:15 Urine pH 5.0 (5.0-7.0) 03/13/18 07:15 Ur Specific [place] 1.057 (1.003-1.030) H 03/13/18 07:15 Urine Protein <15 mg/dl mg/dL (Negative) 03/13/18 07:15 Urine Glucose (UA) >=500 mg/dL (Negative) 03/13/18 07:15 Urine Ketones 20 mg/dL (Negative) 03/13/18 07:15 Urine Blood Neg (Negative) 03/13/18 07:15 Urine Nitrite Neg (Negative) 03/13/18 07:15 Urine Bilirubin Neg (Negative) 03/13/18 07:15 Urine Urobilinogen < 2.0 mg/dL (<2.0) 03/13/18 07:15 Ur Leukocyte Esterase Neg (Negative) 03/13/18 07:15 Urine WBC (Auto) 2.0 /HPF (0.0-6.0) 03/13/18 07:15 Urine RBC (Auto) 1.0 /HPF (0.0-6.0) 03/13/18 07:15 U Epithel Cells (Auto) < 1.0 /HPF (0-13.0) 03/13/18 07:15 Urine Mucus Few /HPF 03/13/18 07:15
[2018-03-15] MEDS: NACL 0.9% 1000 ML 1,000 ML IV SCH ×2 (08:07→09:03)
[2018-03-15] MEDS: HumaLOG SUB-Q SCH ×3 (08:09→17:51)
--- NOTE | 2018-03-15 08:11 | Anesthesia Consultation ---
Anesthesia Consult and Med Hx Date of service: 03/15/18 - Airway Anesthetic Teeth Evaluation: Good (missing top right premolar) ROM Head & Neck: Adequate Mental/Hyoid Distance: Adequate Mallampati Class: Class I Intubation Access Assessment: Good - Pulmonary Exam CTA: Yes - Cardiac Exam Cardiac Exam: RRR - Pre-Operative Health Status ASA Pre-Surgery Classification: ASA3 Proposed Anesthetic Plan: MAC - Pulmonary Hx Smoking: No Hx Asthma: No Hx Respiratory Symptoms: No COPD: No - Cardiovascular System Hx Hypertension: Yes Hx Heart Attack/AMI: No - Central Nervous System Hx Seizures: No CVA: No - Endocrine Hx Renal Disease: No Hx Liver Disease: No Hx Non-Insulin Dependent Diabetes: Yes (HbA1c 13.7) Hx Hyperthyroidism: Yes (on methimazole) - Hematic Hx Anemia: No - Other Systems Hx Substance Use: No Hx Obesity: No - Additional Comments Anesthesia Medical History Comments: Admitted with nausea, vomiting, abdominal pain with little-colitis on CT abd. Plan for EGD/colonoscopy today. NPO >8 hrs; no episodes of vomiting today. 20g PIV RUE in place; neg preg screen this admission.
--- NOTE | 2018-03-15 08:12 | Anesthesia Day of Surgery ---
Anesthesia Day of Surgery - Day of Surgery Patient Examined: Yes Patient H&P Reviewed: Yes Patient is NPO: Yes Beta Blockers: No (patient refused metoprolol last 24hrs)
[2018-03-15] MEDS ORDERED: DIPRIVAN 10 MG/ML IV ONE ×3 (08:34→08:35)
[2018-03-15 08:42] LABS: INR 1.15 (0.87-1.13)
[2018-03-15 08:57] LABS: BUN/Creatinine Ratio 8; Blood Urea Nitrogen 3 mg/dL (7-17); Calcium 9.4 mg/dL (8.4-10.2); Hemolysis Index 0
--- NOTE | 2018-03-15 09:40 | Post Operative Note ---
Pre-op diagnosis: N/V/Diarrhea Post-op diagnosis: other (Mild Colitis, Mild Gastritis) Findings: 1. Mild antral gastritis (erythema) and mild colitis (erythema, no ulcerations or erosions); random biopsies taken throughout the GI tract Procedure: EGD with cold biopsy; Colonoscopy with cold biopsy Anesthesia: [facility] [place] Surgeon: JOSE GARCIA Estimated blood loss: minimal Pathology: list (1. Duodenum. 2. Gastric antrum. 3. Terminal ileum. 4. Right colon. 5. Left colon.) Specimen disposition: to lab Condition: stable Disposition: floor (Recs: 1. OK to d/c home on regular diet. 2. Send home on PO levoflox/flagyl for 3 more days. 3. Follow up in the clinic with Dr Martinez in 2-3 weeks for biopsy results. 4. We will sign off; please call if needed.)
--- NOTE | 2018-03-15 10:16 | Operative Report ---
PROCEDURE PERFORMED: Esophagogastroduodenoscopy with cold biopsy and colonoscopy with cold biopsy. PREOPERATIVE DIAGNOSES: Abnormal CT scan, nausea, vomiting and diarrhea. POSTOPERATIVE DIAGNOSES: Possible gastritis and colitis, status post random biopsies throughout. ENDOSCOPIST: Jaskaran Smiley MD INSTRUMENT: [employer] video endoscope. MEDICATIONS: MAC anesthesia by [facility]. COMPLICATIONS: No apparent complications. ESTIMATED BLOOD LOSS: Minimal. SPECIMENS: 1. Random duodenum. 2. Gastric antrum. 3. Terminal ileum. 4. Right colon. 5. Left colon. IMPLANTS: None. ASSISTANTS: None. CONDITION AT COMPLETION: Stable. TECHNIQUE: The patient was informed of the risks and benefits of the procedure. She signed the informed consent to proceed. She was placed in the left lateral decubitus position. The above sedative medications were given. Her vital signs remained stable throughout the procedure. The instrument was advanced from the mouth to the second portion of the duodenum under direct visualization. At that point, the bowel was insufflated and the endoscope was slowly withdrawn. The bed was then rotated and the colonoscope was advanced from the rectum to the cecum under direct visualization. The cecum was confirmed by cannulation of the terminal ileum. At that point, the bowel was insufflated and the endoscope was slowly withdrawn. The quality of preparation was good. FINDINGS: 1. Normal upper gastrointestinal tract, except for mild erythema in the antrum of the stomach; random biopsies were taken of both the duodenum and the gastric antrum to rule out celiac disease, H. pylori, or inflammatory bowel disease. 2. Mild erythema in the colon with some lymphoid hyperplasia in the terminal ileum; however, there were no erosions or mucosal ulcerations; random biopsies were taken of the terminal ileum, right colon, and left colon to rule out inflammatory bowel disease. RECOMMENDATIONS: 1. Okay to discharge home on a regular diet. 2. Send home on oral levofloxacin and Flagyl for 3 more days. 3. Follow up in the clinic with Dr. Martinez in 2-3 weeks for biopsy results. 4. We will sign off. Please call as needed. JOB# [id number] HECTOR/NTS
[2018-03-15] MEDS: LEVAQUIN 750MG/150ML 750 MG/150 ML BAG IV SCH (11:00)
[2018-03-15] MEDS: LOVENOX SUB-Q SCH (11:02)
[2018-03-15] MEDS: LOPRESSOR PO SCH (11:03)
[2018-03-15] MEDS: TAPAZOLE PO SCH (11:03)
[2018-03-15] MEDS: SODIUM CHLORIDE FLUSH SYRINGE 10 ML IV SCH (11:04)
--- NOTE | 2018-03-15 11:47 | Discharge Summary ---
Providers - Providers Date of Admission: 03/13/18 04:31 Attending physician: STEPHAN BENITO MD 03/13/18 03:40 Consult to Physician [CONS] Routine Comment: Consulting Provider: JOSE GARCIA Physician Instructions: Reason For Exam: colitis Primary care physician: MULUGETA ACRSON Hospitalization Reason for admission: colitis Condition: Stable Hospital course: 32-year-old -[place] female with past medical history significant for diabetes, hypertension, hypothyroidism presented to the emergency department with complaints of nausea or vomiting and abdominal pain. In the emergency department, CT of the abdomen was done and showed pancolitis. Nausea, vomiting, abdominal pain Colitis - Patient is on IV antibiotics, IV fluids - Patient started with clear liquid diet and tolerated. - GI consult appreciated, they're going to do EGD or colonoscopy tomorrow. - Nothing by mouth after midnight, bowel prep Diabetes mellitus with hyperglycemia - Sliding-scale insulin coverage and basal insulin - Accu-Chek, consistent carb diet Hyperthyroidism - Patient started with her home dose of methimazole DVT prophylaxis - Lovenox Disposition - Continue inpatient care Disposition: TO HOME OR SELFCARE Time spent for discharge: 32 minutes - Discharge Diagnoses (1) Abdominal pain Status: Acute (2) Colitis Status: Acute (3) Dehydration Status: Acute (4) Gastroenteritis Status: Acute (5) Hyperthyroidism Status: Acute (6) Nausea & vomiting Status: Acute Qualifiers: Vomiting type: unspecified Vomiting Intractability: non-intractable Qualified Code(s): R11.2 - Nausea with vomiting, unspecified (7) Hypertension Status: Chronic Qualifiers: Hypertension type: essential hypertension Qualified Code(s): I10 - Essential (primary) hypertension (8) T2DM (type 2 diabetes mellitus) Status: Chronic Qualifiers: Diabetes mellitus complication status: without complication Core Measure Documentation - Palliative Care Palliative Care/ Comfort Measures: Not Applicable - Core Measures Any of the following diagnoses?: none Exam - Physical Exam Narrative exam: Not in cardiopulmonary distress. The patient appeared well nourished and normally developed. Vital signs as documented. Head exam is unremarkable. No scleral icterus . Neck is without jugular venous distension, thyromegaly, or carotid bruits. Lungs are clear to auscultation. Cardiac exam reveals regular rate and Rhythm. First and second heart sounds normal. No murmurs, rubs or gallops. Abdominal exam reveals mild abdominal tenderness. Extremities are nonedematous and both femoral and pedal pulses are normal. PRODUCT MANAGER: Alert and oriented 3. No focal weakness. - Constitutional Vitals: Temp Pulse Resp BP Pulse Ox 97.7 F 84 16 134/81 99 03/15/18 09:30 03/15/18 11:03 03/15/18 09:59 03/15/18 11:03 03/15/18 09:59 Plan Activity: no restrictions Weight Bearing Status: Full Weight Bearing Diet: low salt, diabetic Follow up with: MULUGETA CARSON MD [Primary Care Provider] - 7 Days BE ZHOU MD [Staff Physician] - 14 Days Prescriptions: Fluconazole [Diflucan TAB] 150 mg PO ONCE #1 tablet levoFLOXacin [Levaquin] 750 mg PO QDAY #3 tablet metroNIDAZOLE [Metronidazole] 500 mg PO TID #9 tablet Mupirocin [Bactroban 2% OINT] 1 applic TP TID #1 tube Ondansetron [Zofran ODT TAB] 4 mg PO Q8HR PRN #12 tab.rapdis PRN Reason: Nausea oxyCODONE /ACETAMINOPHEN [Percocet 5/325] 1 tab PO Q6HR PRN #12 tablet PRN Reason: Pain
[2018-03-15] MEDS ORDERED: POTASSIUM CHLORIDE FEEDTUBE ONE (12:00)
[2018-03-15 18:12] VITALS: BP 147/99
== END 2018-03-15 18:45 | disposition home or self-care (01) | DRG 392 ==
LOC: ED 22:01 → 3A 03-13 04:31
PROVIDERS: ADMIT Internal Medicine; ATTEND Internal Medicine
PROC: 0DB98ZX Excision of Duodenum, Via Natural or Artificial Opening Endoscopic, Diagnostic (ICD-10-PCS; principal; 2018-03-15)
PROC: 0DB68ZX Excision of Stomach, Via Natural or Artificial Opening Endoscopic, Diagnostic (ICD-10-PCS; 2018-03-15)
PROC: 0DBM8ZX Excision of Descending Colon, Via Natural or Artificial Opening Endoscopic, Diagnostic (ICD-10-PCS; 2018-03-15)
PROC: 0DBB8ZX Excision of Ileum, Via Natural or Artificial Opening Endoscopic, Diagnostic (ICD-10-PCS; 2018-03-15)
PROC: 0DBF8ZX Excision of Right Large Intestine, Via Natural or Artificial Opening Endoscopic, Diagnostic (ICD-10-PCS; 2018-03-15)
DX: K52.9 Noninfective gastroenteritis and colitis, unspecified (principal); K51.00 Ulcerative (chronic) pancolitis without complications; E05.90 Thyrotoxicosis, unspecified without thyrotoxic crisis or storm; I10 Essential (primary) hypertension; Z79.84 Long term (current) use of oral hypoglycemic drugs; E11.65 Type 2 diabetes mellitus with hyperglycemia; Z53.20 Procedure and treatment not carried out because of patient's decision for unspecified reasons; K29.70 Gastritis, unspecified, without bleeding; Z82.49 Family history of ischemic heart disease and other diseases of the circulatory system
CPT/HCPCS: 36415; 71045; 74177; 80048; 80053; 81001; 82962; 84703; 85007; 85025; 85610; 87045; 87116; 88305; 88342; 93005; 93010; 96361; 96365; 96375; 96376; J1650; J1720; J1800; J1815; J1956; J2270; J2405; J2704; J7030; Q9967

== ENCOUNTER 2018-10-12 15:01 | Emergency (ER) | payer MEDICAID ==
--- NOTE | 2018-10-12 15:47 | Emergency Department Report ---
Chief Complaint: Abdominal Pain Stated Complaint: VOMIT/DIARRHEA/NAUSEA Time Seen by Provider: 10/12/18 15:44 - HPI History of Present Illness: Pt presents with N/V/D that began last began last night has upper abdominal cramping more than 10 episodes of V/D no fever can tolerate water intake no urinary sx hx of hyperthyroid, DM, HTN did not take her BP medication today [facility] 09/15/18 MSE screening note: Focused history and physical exam performed. Due to findings the following was ordered: labs, UA, urine preg ED Disposition for MSE Condition: Stable Instructions: Abdominal Pain (ED)
[2018-10-12] MEDS ORDERED: ZOFRAN ODT PO ONE (15:48)
[2018-10-12] MEDS ORDERED: NACL 0.9% 1000 ML 1,000 ML IV ONE ×2 (15:48→18:34)
[2018-10-12 16:14] LABS: Mean Corpuscular HGB Conc 28 % (30-34); Platelet Count 296 K/mm3 (140-440); Red Blood Count 7.02 M/mm3 (3.65-5.03)
[2018-10-12 16:15] LABS: Hematocrit 36.6 % (30.3-42.9); Hemoglobin 10.4 gm/dl (10.1-14.3); Mean Corpuscular Volume 52 fl (79-97); Red Cell Distribution Width 22.2 % (13.2-15.2)
[2018-10-12 16:24] LABS: Alanine Aminotransferase 14 units/L (7-56); Albumin 4.2 g/dL (3.9-5); BUN/Creatinine Ratio 27; Blood Urea Nitrogen 8 mg/dL (7-17); Calcium 9.1 mg/dL (8.4-10.2); Hemolysis Index 0
[2018-10-12 17:09] LABS: Eosinophils % (Manual) 0 % (0.0-4.3); Total Cells Counted 100
[2018-10-12 17:10] LABS: Anisocytosis 1+
[2018-10-12 17:11] LABS: Hypochromasia 2+; Large Platelets Few; Poikilocytosis 1+
[2018-10-12 17:12] LABS: Platelet Estimate Consistent w Auto; Target Cells Few
[2018-10-12 18:48] LABS: Free T4 (Free Thyroxine) 3.86 ng/dL (0.76-1.46)
--- NOTE | 2018-10-12 19:28 | Emergency Department Report ---
ED N/V/D HPI - General Chief complaint: Abdominal Pain Stated complaint: VOMIT/DIARRHEA/NAUSEA Time Seen by Provider: 10/12/18 15:44 Source: patient Mode of arrival: Ambulatory Limitations: No Limitations - History of Present Illness Initial comments: Patient is a 33-year-old female that presents emergency room with complaints of nausea vomiting and diarrhea and abdominal pain since this morning at 2 AM. Patient states she has had multiple bouts of vomiting and diarrhea. Patient states that her abdominal pain as a 7 out of 10. Patient states the pain is worse with movement and vomiting and eating. Patient states the pain is better with rest and nothing by mouth. Patient denies fever and chills. Denies syncope. Patient denies chest pain shortness of breath. Patient denies blood in her vomitus or in her stool. Patient denies . MD complaint: nausea, vomiting, diarrhea, abdominal pain -: Sudden Description of Vomiting: watery Description of Diarrhea: water Associated Abdominal Pain: Yes Location: diffuse Radiation: none Severity: severe Pain Scale: 7 Quality: cramping Improves with: rest Worsens with: eating, bowel movement, vomiting, movement Associated Symptoms: nausea/vomiting. denies: myalgias, chest pain, cough, diaphoresis, fever/chills, headaches, loss of appetite, malaise, rash, dysuria, shortness of breath, syncope, weakness - Related Data Previous Rx's Medication Instructions Recorded Last Taken Type Cholestyramine (with Sugar) 4 gm PO BID #30 packet 05/01/18 Unknown Rx [Questran] Metoprolol [Lopressor TAB] 25 mg PO BID #60 tablet 05/01/18 Unknown Rx metFORMIN [Glucophage] 500 mg PO BID #60 tablet 05/01/18 Unknown Rx methIMAzole [Tapazole] 10 mg PO Q24HR #30 tablet 05/01/18 Unknown Rx metroNIDAZOLE [Flagyl TAB] 500 mg PO Q8H #30 tablet 05/01/18 Unknown Rx oxyCODONE /ACETAMINOPHEN [Percocet 1 tab PO Q4HR #12 tab 05/01/18 Unknown Rx 5/325] Ondansetron [Zofran Odt] 4 mg PO Q6HR PRN #15 tab.rapdis 10/12/18 Unknown Rx Allergies Allergy/AdvReac Type Severity Reaction Status Date / Time No Known Allergies Allergy Verified 10/12/18 15:02 ED Review of Systems ROS: Stated complaint: VOMIT/DIARRHEA/NAUSEA Other details as noted in HPI Constitutional: denies: chills, fever Eyes: denies: eye pain, eye discharge, vision change ENT: denies: ear pain, throat pain Respiratory: denies: cough, shortness of breath, wheezing Cardiovascular: denies: chest pain, palpitations Endocrine: no symptoms reported Gastrointestinal: abdominal pain, nausea, vomiting, diarrhea Genitourinary: denies: urgency, dysuria, discharge Musculoskeletal: denies: back pain, joint swelling, arthralgia Skin: denies: rash, lesions Neurological: denies: headache, weakness, paresthesias Psychiatric: denies: anxiety, depression Hematological/Lymphatic: denies: easy bleeding, easy bruising ED Past Medical Hx - Past Medical History Previous Medical History?: Yes Hx Hypertension: Yes Hx Heart Attack/AMI: No Hx Congestive Heart Failure: No Hx Diabetes: Yes Hx Deep Vein Thrombosis: No Hx Liver Disease: No Hx Renal Disease: No Hx Sickle Cell Disease: No Hx Seizures: No Hx Psychiatric Treatment: No Hx Asthma: No Hx COPD: No Hx HIV: No Additional medical history: thyroid, colitis - Surgical History Past Surgical History?: Yes Additional Surgical History: c sect - Family History Family history: no significant - Social History Smoking Status: Never Smoker Substance Use Type: Alcohol - Medications Home Medications: Home Medications Medication Instructions Recorded Confirmed Last Taken Type Cholestyramine (with Sugar) 4 gm PO BID #30 packet 05/01/18 Unknown Rx [Questran] Metoprolol [Lopressor TAB] 25 mg PO BID #60 tablet 05/01/18 Unknown Rx metFORMIN [Glucophage] 500 mg PO BID #60 tablet 05/01/18 Unknown Rx methIMAzole [Tapazole] 10 mg PO Q24HR #30 tablet 05/01/18 Unknown Rx metroNIDAZOLE [Flagyl TAB] 500 mg PO Q8H #30 tablet 05/01/18 Unknown Rx oxyCODONE /ACETAMINOPHEN [Percocet 1 tab PO Q4HR #12 tab 05/01/18 Unknown Rx 5/325] Ondansetron [Zofran Odt] 4 mg PO Q6HR PRN #15 tab.rapdis 10/12/18 Unknown Rx ED Physical Exam - General Limitations: No Limitations General appearance: alert, in no apparent distress - Head Head exam: Present: atraumatic, normocephalic - Eye Eye exam: Present: normal appearance - ENT ENT exam: Present: mucous membranes moist - Neck Neck exam: Present: normal inspection - Respiratory Respiratory exam: Present: normal lung sounds bilaterally. Absent: respiratory distress - Cardiovascular Cardiovascular Exam: Present: regular rate, normal rhythm. Absent: systolic murmur, diastolic murmur, rubs, gallop - GI/Abdominal GI/Abdominal exam: Present: soft, normal bowel sounds. Absent: distended, tenderness, guarding, rebound - Rectal Rectal exam: Present: deferred - Extremities Exam Extremities exam: Present: normal inspection - Back Exam Back exam: Present: normal inspection - Neurological Exam Neurological exam: Present: alert, oriented X3 - Psychiatric Psychiatric exam: Present: normal affect, normal mood - Skin Skin exam: Present: warm, dry, intact, normal color. Absent: rash ED Course Vital Signs 10/12/18 10/12/18 10/12/18 15:47 20:00 20:06 Temperature 97.9 F 98 F Pulse Rate 130 H 109 H 106 H Respiratory 16 13 15 Rate Blood Pressure 156/102 140/86 Blood Pressure 140/86 [Left] O2 Sat by Pulse 100 99 99 Oximetry 10/12/18 10/12/18 21:00 22:00 Temperature Pulse Rate 112 H 111 H Respiratory 19 12 Rate Blood Pressure 130/76 130/76 Blood Pressure [Left] O2 Sat by Pulse 99 100 Oximetry - Reevaluation(s) Reevaluation #1: Discussed all results with patient. Patient will be given a by mouth challenge. Patient is resting in bed comfortably. 10/12/18 21:45 Patient denies vomiting or nausea from by mouth challenge. Patient tolerated by mouth intake. Patient is still tachycardic but is improving. 10/12/18 22:00 Discussed all results with patient. Patient is stable for discharge. Patient given discharge instructions. Patient given dietary instructions. Patient voiced understanding of all instructions. 10/12/18 22:29 ED Medical Decision Making - Lab Data Result diagrams: 10/12/18 15:51 10/12/18 15:51 - EKG Data -: EKG Interpreted by Me EKG shows normal: sinus rhythm, axis, intervals, QRS complexes, ST-T waves Rate: tachycardia - Medical Decision Making She is a 33-year-old female that is emergency room with nausea vomiting diarrhea and abdominal pain. Patient found to have gastroenteritis. Patient's labs unremarkable except for dehydration. Patient given 2 L of fluids. Patient tolerated by mouth challenge. Patient tolerated by mouth fluids. Patient will be discharged home. Patient stable for discharge. Patient given discharge inst ructions. - Differential Diagnosis gastroenteritis. Nausea, vomiting, diarrhea. Abdominal pain. Critical Care Time: Yes Critical care attestation.: If time is entered above; I have spent that time in minutes in the direct care of this critically ill patient, excluding procedure time. Critical Care Time: 35 minutes ED Disposition Clinical Impression: Gastroenteritis, Dehydration, Tachycardia Abdominal pain Qualifiers: Abdominal location: generalized Qualified Code(s): R10.84 - Generalized abdominal pain Nausea & vomiting Qualifiers: Vomiting type: unspecified Vomiting Intractability: non-intractable Qualified Code(s): R11.2 - Nausea with vomiting, unspecified Disposition: TO HOME OR SELFCARE Is pt being admited?: No Does the pt Need Aspirin: No Condition: Stable Instructions: Gastroenteritis (ED), Acute Nausea and Vomiting (ED), Abdominal Pain (ED) Additional Instructions: H and to follow up with primary care in 2-3 days. Patient to return to ER if condition worsens. Patient to eat a Debbie diet. Patient to increase water. Patient to rest. Patient to take meds as directed. Patient take Tylenol or ibuprofen when necessary for pain. Prescriptions: Ondansetron [Zofran Odt] 4 mg PO Q6HR PRN #15 tab.rapdis PRN Reason: Nausea And Vomiting Referrals: TALISHA MARIE MD [Primary Care Provider] - 2-3 Days Time of Disposition: 22:29
[2018-10-12 21:00] LABS: Bilirubin,Urine Negative (Negative); Color,Urine Yellow (Yellow)
[2018-10-12 21:01] LABS: Blood,Urine Negative (Negative); Protein,Urine <15 mg/dL mg/dL (Negative); Urobilinogen,Urine < 2.0 mg/dL (<2.0)
[2018-10-12 21:02] LABS: Mucus,Urine Few /HPF; WBC,Urine < 1.0 /HPF (0.0-6.0)
[2018-10-14 17:52] VITALS: BP 130/76
== END 2018-10-12 22:54 | disposition home or self-care (01) ==
LOC: ED 15:01
DX: K52.9 Noninfective gastroenteritis and colitis, unspecified (principal); E86.0 Dehydration; R00.0 Tachycardia, unspecified; I10 Essential (primary) hypertension; E11.9 Type 2 diabetes mellitus without complications
CPT/HCPCS: 36415; 80053; 81001; 83690; 84439; 84443; 84703; 85007; 85025; 93005; 93010; 96360; 96361; 99291; J7030; Q0162

== ENCOUNTER 2020-11-19 20:23 | Emergency (ER) | payer MEDICAID ==
[2020-11-19 21:04] VITALS: BP 135/91
== END 2020-11-19 21:55 | disposition left against medical advice (07) ==
LOC: ED 20:23
DX: R00.2 Palpitations (principal); Z53.21 Procedure and treatment not carried out due to patient leaving prior to being seen by health care provider

== ENCOUNTER 2021-08-23 10:29 | Emergency (ER) | payer MEDICAID ==
[2021-08-23] MEDS ORDERED: SODIUM CHLORIDE 0.9% 1000 ML 1,000 ML IV ONE ×2 (12:10→13:57)
[2021-08-23] MEDS ORDERED: FAMOTIDINE 20 MG/2 ML INJ IV ONE (12:10)
[2021-08-23] MEDS ORDERED: ONDANSETRON 4 MG/2 ML INJ IV ONE ×2 (12:10→14:39)
[2021-08-23] MEDS ORDERED: MORPHINE 4 MG/1 ML INJ IV ONE ×2 (12:11→14:39)
--- NOTE | 2021-08-23 12:16 | Emergency Department Report ---
ED Abdominal Pain HPI - General Chief Complaint: Abdominal Pain Stated Complaint: NAUSEA/VOMITING Time Seen by Provider: 08/23/21 12:04 Source: patient, old records reviewed Mode of arrival: Ambulatory Limitations: No Limitations - History of Present Illness Initial Comments: 36-year-old female who states she has a possible history of diabetes presents to the hospital with complaints of epigastric pain with nausea, vomiting, p.o. intolerance for last 3 days. Epigastric pain is severe described as a burning, aching, and cramping feeling. Worse with palpation. No alleviating factors. Patient denies hematemesis, diarrhea, or fevers. Abdominal surgeries include previous delivery. Patient has not been on diabetes medication for several years due to lack of follow-up. As per previous medical review patient was admitted here in [address] findings of colitis, hyperthyroidism, and hypertension. Severity scale (0 -10): 8 - Related Data Previous Rx's Medication Instructions Recorded Last Taken Type Cholestyramine (with Sugar) 4 gm PO BID #30 packet 05/01/18 Unknown Rx [Questran] Metoprolol [Lopressor TAB] 25 mg PO BID #60 tablet 05/01/18 Unknown Rx methIMAzole [Tapazole] 10 mg PO Q24HR #30 tablet 05/01/18 Unknown Rx metroNIDAZOLE [Flagyl TAB] 500 mg PO Q8H #30 tablet 05/01/18 Unknown Rx oxyCODONE /ACETAMINOPHEN [Percocet 1 tab PO Q4HR #12 tab 05/01/18 Unknown Rx 5/325] Ondansetron [Zofran Odt] 4 mg PO Q6HR PRN #15 tab.rapdis 10/12/18 Unknown Rx Famotidine [Pepcid] 20 mg PO BID #20 tablet 08/23/21 Unknown Rx HYDROcodone/APAP 5-325 [Ennice 1 each PO Q6HR PRN #15 tablet 08/23/21 Unknown Rx 5/325] Metoclopramide [Reglan] 10 mg PO TID PRN #20 tab 08/23/21 Unknown Rx Ondansetron [Zofran Odt] 4 mg PO Q6H PRN #20 tab.rapdis 08/23/21 Unknown Rx metFORMIN [Glucophage] 500 mg PO BID #60 tablet 08/23/21 Unknown Rx Allergies Allergy/AdvReac Type Severity Reaction Status Date / Time No Known Allergies Allergy Verified 10/12/18 15:02 ED Review of Systems ROS: Stated complaint: NAUSEA/VOMITING Other details as noted in HPI Comment: All other systems reviewed and negative ED Past Medical Hx - Past Medical History Hx Hypertension: Yes Hx Heart Attack/AMI: No Hx Congestive Heart Failure: No Hx Diabetes: Yes Hx Deep Vein Thrombosis: No Hx Liver Disease: No Hx Renal Disease: No Hx Sickle Cell Disease: No Hx Seizures: No Hx Psychiatric Treatment: No Hx Asthma: No Hx COPD: No Hx HIV: No Additional medical history: hyperthyroid, colitis - Surgical History Additional Surgical History: c sect - Social History Smoking Status: Never Smoker Substance Use Type: Alcohol - Medications Home Medications: Home Medications Medication Instructions Recorded Confirmed Last Taken Type Cholestyramine (with Sugar) 4 gm PO BID #30 packet 05/01/18 Unknown Rx [Questran] Metoprolol [Lopressor TAB] 25 mg PO BID #60 tablet 05/01/18 Unknown Rx methIMAzole [Tapazole] 10 mg PO Q24HR #30 tablet 05/01/18 Unknown Rx metroNIDAZOLE [Flagyl TAB] 500 mg PO Q8H #30 tablet 05/01/18 Unknown Rx oxyCODONE /ACETAMINOPHEN [Percocet 1 tab PO Q4HR #12 tab 05/01/18 Unknown Rx 5/325] Ondansetron [Zofran Odt] 4 mg PO Q6HR PRN #15 tab.rapdis 10/12/18 Unknown Rx Famotidine [Pepcid] 20 mg PO BID #20 tablet 08/23/21 Unknown Rx HYDROcodone/APAP 5-325 [Ennice 1 each PO Q6HR PRN #15 tablet 08/23/21 Unknown Rx 5/325] Metoclopramide [Reglan] 10 mg PO TID PRN #20 tab 08/23/21 Unknown Rx Ondansetron [Zofran Odt] 4 mg PO Q6H PRN #20 tab.rapdis 08/23/21 Unknown Rx metFORMIN [Glucophage] 500 mg PO BID #60 tablet 08/23/21 Unknown Rx ED Physical Exam - General Limitations: No Limitations - Other Other exam information: General: Moderate distress secondary to pain Head: Atraumatic Eyes: normal appearance ENT: Dry mucous membrane Neck: Normal appearance, no midline tenderness Chest: Clear to auscultation bilaterally CV: Regular rate and rhythm Abdomen: Soft, normal bowel sounds, epigastric tenderness, nondistended, no rebound or guarding Back: Normal inspection Extremity: Normal inspection, full range of motion Neuro: Alert O x 3, no facial asymmetry, speech clear, no gross motor sensory deficit Psych: Appropriate behavior Skin: No rash ED Course Vital Signs 08/23/21 11:50 Temperature 98.5 F Pulse Rate 97 H Respiratory 17 Rate Blood Pressure 112/77 [Right] O2 Sat by Pulse 100 Oximetry - Reevaluation(s) Reevaluation #1: 08/23/21 17:20 Patient reports feeling better after second dose of morphine. She complains of residual nausea. She has received a total of Zofran 8 mg, morphine 8 mg, and Pepcid. IV Reglan and Benadryl ordered ED Medical Decision Making - Lab Data Result diagrams: 08/23/21 12:12 08/23/21 12:12 Lab Results 08/23/21 08/23/21 08/23/21 Range/Units 12:12 12:12 12:12 WBC 5.8 (4.5-11.0) K/mm3 RBC 4.89 (3.65-5.03) M/mm3 Hgb 11.1 (10.1-14.3) gm/dl Hct 34.0 (30.3-42.9) % MCV 69 L (79-97) fl MCH 23 L (28-32) pg MCHC 33 (30-34) % RDW 18.9 H (13.2-15.2) % Plt Count 347 (140-440) K/mm3 Sodium 132 L (137-145) mmol/L Potassium 4.3 (3.6-5.0) mmol/L Chloride 96.0 L (98-107) mmol/L Carbon Dioxide 21 L (22-30) mmol/L Anion Gap 19 mmol/L BUN 9 (7-17) mg/dL Creatinine 0.7 (0.6-1.2) mg/dL Estimated GFR > 60 ml/min BUN/Creatinine Ratio 13 % Glucose 211 H (65-100) mg/dL POC Glucose (70-105) mg/dL Hemoglobin A1c (4-6) % Calcium 9.7 (8.4-10.2) mg/dL Magnesium 1.90 (1.7-2.3) mg/dL Total Bilirubin 0.70 (0.1-1.2) mg/dL AST 19 (5-40) units/L ALT 13 (7-56) units/L Alkaline Phosphatase 82 (35-129) units/L Total Protein 8.6 H (6.3-8.2) g/dL Albumin 4.7 (3.9-5) g/dL Albumin/Globulin Ratio 1.2 % Lipase 17 (13-60) units/L TSH 1.670 (0.270-4.200) mlU/mL Free T4 0.62 L (0.76-1.46) ng/dL HCG, Quant < 2 (0-4) mIU/mL Urine Color (Yellow) Urine Turbidity (Clear) Urine pH (5.0-7.0) Ur Specific [place] (1.003-1.030) Urine Protein (Negative) mg/dL Urine Glucose (UA) (Negative) mg/dL Urine Ketones (Negative) mg/dL Urine Blood (Negative) Urine Nitrite (Negative) Urine Bilirubin (Negative) Urine Urobilinogen (<2.0) mg/dL Ur Leukocyte Esterase (Negative) Urine WBC (Auto) (0.0-6.0) /HPF Urine RBC (Auto) (0.0-6.0) /HPF U Epithel Cells (Auto) (0-13.0) /HPF Urine Mucus /HPF 08/23/21 08/23/21 08/23/21 Range/Units 12:13 12:26 Unknown WBC (4.5-11.0) K/mm3 RBC (3.65-5.03) M/mm3 Hgb (10.1-14.3) gm/dl Hct (30.3-42.9) % MCV (79-97) fl MCH (28-32) pg MCHC (30-34) % RDW (13.2-15.2) % Plt Count (140-440) K/mm3 Sodium (137-145) mmol/L Potassium (3.6-5.0) mmol/L Chloride (98-107) mmol/L Carbon Dioxide (22-30) mmol/L Anion Gap mmol/L BUN (7-17) mg/dL Creatinine (0.6-1.2) mg/dL Estimated GFR ml/min BUN/Creatinine Ratio % Glucose (65-100) mg/dL POC Glucose 167 H (70-105) mg/dL Hemoglobin A1c 8.5 H (4-6) % Calcium (8.4-10.2) mg/dL Magnesium (1.7-2.3) mg/dL Total Bilirubin (0.1-1.2) mg/dL AST (5-40) units/L ALT (7-56) units/L Alkaline Phosphatase (35-129) units/L Total Protein (6.3-8.2) g/dL Albumin (3.9-5) g/dL Albumin/Globulin Ratio % Lipase (13-60) units/L TSH (0.270-4.200) mlU/mL Free T4 (0.76-1.46) ng/dL HCG, Quant (0-4) mIU/mL Urine Color Yellow (Yellow) Urine Turbidity Clear (Clear) Urine pH 5.0 (5.0-7.0) Ur Specific [place] 1.012 (1.003-1.030) Urine Protein 30 mg/dl (Negative) mg/dL Urine Glucose (UA) Neg (Negative) mg/dL Urine Ketones 20 (Negative) mg/dL Urine Blood Neg (Negative) Urine Nitrite Neg (Negative) Urine Bilirubin Neg (Negative) Urine Urobilinogen < 2.0 (<2.0) mg/dL Ur Leukocyte Esterase Neg (Negative) Urine WBC (Auto) 4.0 (0.0-6.0) /HPF Urine RBC (Auto) 1.0 (0.0-6.0) /HPF U Epithel Cells (Auto) 3.0 (0-13.0) /HPF Urine Mucus Few /HPF - Radiology Data Radiology results: report reviewed CT ABDOMEN AND PELVIS WITH CONTRAST INDICATION / CLINICAL INFORMATION: n/v abdominal pain. TECHNIQUE: Axial CT images were obtained through the abdomen and pelvis after 100 cc of Omnipaque 300 IV contrast. Sagittal and coronal reformatted images. All CT scans at this location are performed using CT dose reduction for ALARA by means of automated exposure control. COMPARISON: 04/28/2018 FINDINGS: LOWER CHEST: No significant abnormality. LIVER: No significant abnormality. GALLBLADDER: No significant abnormality. BILE DUCTS: No significant abnormality. PANCREAS: No significant abnormality. SPLEEN: No significant abnormality. ADRENALS: No significant abnormality. RIGHT KIDNEY and URETER: No significant abnormality. LEFT KIDNEY and URETER: No significant abnormality. STOMACH and SMALL BOWEL: No significant abnormality. COLON: No significant abnormality. APPENDIX: No significant abnormality. PERITONEUM: No free fluid. No free air. No fluid collection. LYMPH NODES: No significant adenopathy. AORTA and ARTERIES: No significant abnormality. IVC and VEINS: No significant abnormality. URINARY BLADDER: No significant abnormality. REPRODUCTIVE ORGANS: No significant abnormality. ADDITIONAL FINDINGS: None. SKELETAL SYSTEM: No significant abnormality. IMPRESSION: No significant abnormality - Medical Decision Making 36-year-old female presents to the hospital complaining of nausea, vomiting, p.o. intolerance. She has been off all her medications for several years including her diabetes medication. She has not been monitoring her sugars. Labs reveal mild dehydration with mild hyperglycemia with elevated hemoglobin A1c. CT scan does not reveal a acute surgical or infectious cause of symptoms. Hemoglobin A1c signifies that patient is a diabetic and uncontrolled. She will be restarted on diabetes medication, antiemetics, and H2 kelvin. Outpatient follow-up with PMD and GI encouraged. - Differential Diagnosis Gastritis, biliary colic, viral illness, gastroparesis, UTI Critical Care Time: No Critical care attestation.: If time is entered above; I have spent that time in minutes in the direct care of this critically ill patient, excluding procedure time. ED Disposition Clinical Impression: Nausea & vomiting, Gastritis, T2DM (type 2 diabetes mellitus) Disposition: 01 HOME / SELF CARE / HOMELESS Is pt being admited?: No Does the pt Need Aspirin: No Condition: Stable Instructions: Abdominal Pain (ED), Diabetes Mellitus Type 2 in Adults (ED), Nausea and Vomiting, Adult, [id number], Type 2 Diabetes Mellitus, Self Care, Adult, [id number], Gastritis, Adult, [id number] Additional Instructions: Take the medication as prescribed. Follow-up with your doctor or doctor/clinic provided. Return if symptoms worsen as indicated by your discharge instructions. Prescriptions: metFORMIN [Glucophage] 500 mg PO BID #60 tablet HYDROcodone/APAP 5-325 [Ennice 5/325] 1 each PO Q6HR PRN #15 tablet PRN Reason: Pain Famotidine [Pepcid] 20 mg PO BID #20 tablet Metoclopramide [Reglan] 10 mg PO TID PRN #20 tab PRN Reason: Nausea And Vomiting Ondansetron [Zofran Odt] 4 mg PO Q6H PRN #20 tab.rapdis PRN Reason: Nausea And Vomiting Referrals: PRIMARY CARE, [Primary Care Provider] - 3-5 Days [facility] [Provider Group] - 3-5 Days (Primary care clinic) JOSE GARCIA MD [Staff Physician] - 3-5 Days (GI doctor) ELI LAWSON MD [Staff Physician] - 3-5 Days (Primary care doctor) Time of Disposition: 17:24
[2021-08-23 12:58] LABS: Hemoglobin 11.1 gm/dl (10.1-14.3); Mean Corpuscular HGB Conc 33 % (30-34); Platelet Count 347 K/mm3 (140-440); Red Blood Count 4.89 M/mm3 (3.65-5.03); Red Cell Distribution Width 18.9 % (13.2-15.2)
[2021-08-23 13:02] LABS: Mean Corpuscular Volume 69 fl (79-97)
[2021-08-23 13:10] LABS: Alanine Aminotransferase 13 units/L (7-56); Albumin 4.7 g/dL (3.9-5); Blood Urea Nitrogen 9 mg/dL (7-17); Calcium 9.7 mg/dL (8.4-10.2); Hemolysis Index 0
[2021-08-23 13:17] LABS: Free T4 (Free Thyroxine) 0.62 ng/dL (0.76-1.46)
[2021-08-23 13:21] LABS: BUN/Creatinine Ratio 13; HCG,Quantitative < 2 mIU/mL (0-4)
[2021-08-23 15:38] LABS: Bilirubin,Urine NEG (Negative); Blood,Urine NEG (Negative); Color,Urine Yellow (Yellow); Mucus,Urine FEW /HPF; Urobilinogen,Urine < 2.0 mg/dL (<2.0)
--- NOTE | 2021-08-23 16:20 | Cat Scan Report ---
CT ABDOMEN AND PELVIS WITH CONTRAST INDICATION / CLINICAL INFORMATION: n/v abdominal pain. TECHNIQUE: Axial CT images were obtained through the abdomen and pelvis after 100 cc of Omnipaque 300 IV contras t. Sagittal and coronal reformatted images. All CT scans at this location are performed using CT dose reduction for ALARA by means of automated exposure control. COMPARISON: 04/28/2018 FINDINGS: LOWER CHEST: No significant abnormality. LIVER: No significant abnormality. GALLBLADDER: No significant abnormality. BILE DUCTS: No significant abnormality. PANCREAS: No significant abnormality. SPLEEN: No significant abnormality. ADRENALS: No significant abnormality. RIGHT KIDNEY and URETER: No significant abnormality. LEFT KIDNEY and URETER: No significant abnormality. STOMACH and SMALL BOWEL: No significant abnormality. COLON: No significant abnormality. APPENDIX: No significant abnormality. PERITONEUM: No free fluid. No free air. No fluid collection. LYMPH NODES: No significant adenopathy. AORTA and ARTERIES: No significant abnormality. IVC and VEINS: No significant abnormality. URINARY BLADDER: No significant abnormality. REPRODUCTIVE ORGANS: No significant abnormality. ADDITIONAL FINDINGS: None. SKELETAL SYSTEM: No significant abnormality. IMPRESSION: No significant abnormality. Signer Name: Marino Grubbs Jr, MD Signed: 08/23/2021 4:15 PM Workstation Name: [id number]
[2021-08-23] MEDS ORDERED: diphenhydrAMINE 50 MG/ML VIAL IV ONE (16:58)
[2021-08-23] MEDS ORDERED: METOCLOPRAMIDE 10 MG/2 ML INJ IV ONE (16:58)
[2021-08-23 18:53] VITALS: BP 114/76
== END 2021-08-23 18:52 | disposition home or self-care (01) ==
LOC: ED 10:29
DX: R11.2 Nausea with vomiting, unspecified (principal); K29.70 Gastritis, unspecified, without bleeding; I10 Essential (primary) hypertension; E11.9 Type 2 diabetes mellitus without complications
CPT/HCPCS: 36415; 74177; 80053; 81001; 82962; 83036; 83690; 83735; 84439; 84443; 84702; 85027; 96361; 96374; 96375; 96376; 99284; J1200; J2270; J2405; J2765; J3490; J7030; Q9967; Q0162

== ENCOUNTER 2021-08-25 21:36 | Emergency (ER) | payer MEDICAID ==
[2021-08-25] MEDS ORDERED: PANTOPRAZOLE 40 MG INJ IV ONE (23:53)
[2021-08-25] MEDS ORDERED: HALOPERIDOL LACTATE 5 MG/1 ML INJ IM ONE (23:53)
[2021-08-25] MEDS ORDERED: LACTATED RINGERS 1,000 ML IV ONE (23:53)
--- NOTE | 2021-08-25 23:54 | Emergency Department Report ---
ED General Adult HPI - General Chief complaint: Nausea/Vomiting/Diarrhea Stated complaint: VOMITING/NAUSEA/ABD PAIN PUI?: No Time Seen by Provider: 08/25/21 23:35 Source: patient, RN notes reviewed, old records reviewed Mode of arrival: Ambulatory Limitations: No Limitations - History of Present Illness Initial comments: The patient was evaluated in the emergency department for symptoms described in the history of present illness. He/she was evaluated in the context of the global COVID-19 pandemic, which necessitated consideration that the patient might be at risk for infection with the virus that causes COVID-19. Instit utional protocols and algorithms that pertain to the evaluation of patients at risk for COVID-19 are in a state of rapid change based on information released by regulatory bodies including the CDC and federal and state organizations. These policies and algorithms were followed during the patient's care in the emergency department. Please note that these policies, procedures and recommendations changed on a rapid basis. Past medical history: Tobacco and marijuana use, diabetes, hyperthyroidism, colitis, acute/chronic abdominal pain The patient is a 36-year-old female who presents to the ER today with a complaint of recurrent abdominal cramping, and nausea and vomiting. She was seen by my colleague a few days ago, and had a thorough and appropriate ER work-up performed, for similar symptoms, including laboratory studies, evaluating TSH and free T4, urinalysis, and CT scan of the abdomen pelvis, which were negative for acute findings. She was also found to have an elevated hemoglobin A1c. The patient was treated supportively and symptomatically, and discharged. The while in the emergency room, it is document that she endorses significant improvement in her symptoms. The patient presents to the ER today with a complaint of recurrent abdominal cramping, nausea and vomiting, and inability to tolerate her medications or liquid/oral feeds. The symptoms have been intermittent. Positive weakness. No fever. No cough. No chest pain. No dysuria. Positive abdominal cramping. No belem rrhea. No focal extremity weakness/numbness. -: Gradual, days(s) Location: abdomen Radiation: non-radiation Severity scale (0 -10): 5 Consistency: other Improves with: other Worsens with: other - Related Data Previous Rx's Medication Instructions Recorded Last Taken Type Cholestyramine (with Sugar) 4 gm PO BID #30 packet 05/01/18 Unknown Rx [Questran] Metoprolol [Lopressor TAB] 25 mg PO BID #60 tablet 05/01/18 Unknown Rx methIMAzole [Tapazole] 10 mg PO Q24HR #30 tablet 05/01/18 Unknown Rx metroNIDAZOLE [Flagyl TAB] 500 mg PO Q8H #30 tablet 05/01/18 Unknown Rx oxyCODONE /ACETAMINOPHEN [Percocet 1 tab PO Q4HR #12 tab 05/01/18 Unknown Rx 5/325] Ondansetron [Zofran Odt] 4 mg PO Q6HR PRN #15 tab.rapdis 10/12/18 Unknown Rx Famotidine [Pepcid] 20 mg PO BID #20 tablet 08/23/21 Unknown Rx HYDROcodone/APAP 5-325 [[place] 1 each PO Q6HR PRN #15 tablet 08/23/21 Unknown Rx 5/325] Metoclopramide [Reglan] 10 mg PO TID PRN #20 tab 08/23/21 Unknown Rx Ondansetron [Zofran Odt] 4 mg PO Q6H PRN #20 tab.rapdis 08/23/21 Unknown Rx metFORMIN [Glucophage] 500 mg PO BID #60 tablet 08/23/21 Unknown Rx Rene Root [Rene] 250 mg PO QID PRN #30 capsule 08/26/21 Unknown Rx Nicotine Polacrilex [Nicotine Gum] 4 mg BC PRN #1 pack 08/26/21 Unknown Rx Promethazine HCl [Phenergan SUPPOS] 25 mg RC Q6HR PRN #20 supp 08/26/21 Unknown Rx Allergies Allergy/AdvReac Type Severity Reaction Status Date / Time No Known Allergies Allergy Verified 10/12/18 15:02 ED Review of Systems ROS: Stated complaint: VOMITING/NAUSEA/ABD PAIN Other details as noted in HPI Constitutional: malaise, weakness Eyes: denies: eye discharge ENT: denies: epistaxis Respiratory: denies: cough Cardiovascular: denies: chest pain Gastrointestinal: abdominal pain, nausea, vomiting Genitourinary: denies: dysuria Neurological: weakness Psychiatric: anxiety ED Past Medical Hx - Past Medical History Previous Medical History?: Yes Hx Hypertension: Yes Hx Heart Attack/AMI: No Hx Congestive Heart Failure: No Hx Diabetes: Yes Hx Deep Vein Thrombosis: No Hx Liver Disease: No Hx Renal Disease: No Hx Sickle Cell Disease: No Hx Seizures: No Hx Psychiatric Treatment: No Hx Asthma: No Hx COPD: No Hx HIV: No Additional medical history: hyperthyroid, colitis - Surgical History Past Surgical History?: Yes Additional Surgical History: c sect - Social History Smoking Status: Never Smoker Substance Use Type: Alcohol - Medications Home Medications: Home Medications Medication Instructions Recorded Confirmed Last Taken Type Cholestyramine (with Sugar) 4 gm PO BID #30 packet 05/01/18 Unknown Rx [Questran] Metoprolol [Lopressor TAB] 25 mg PO BID #60 tablet 05/01/18 Unknown Rx methIMAzole [Tapazole] 10 mg PO Q24HR #30 tablet 05/01/18 Unknown Rx metroNIDAZOLE [Flagyl TAB] 500 mg PO Q8H #30 tablet 05/01/18 Unknown Rx oxyCODONE /ACETAMINOPHEN [Percocet 1 tab PO Q4HR #12 tab 05/01/18 Unknown Rx 5/325] Ondansetron [Zofran Odt] 4 mg PO Q6HR PRN #15 tab.rapdis 10/12/18 Unknown Rx Famotidine [Pepcid] 20 mg PO BID #20 tablet 08/23/21 Unknown Rx HYDROcodone/APAP 5-325 [[place] 1 each PO Q6HR PRN #15 tablet 08/23/21 Unknown Rx 5/325] Metoclopramide [Reglan] 10 mg PO TID PRN #20 tab 08/23/21 Unknown Rx Ondansetron [Zofran Odt] 4 mg PO Q6H PRN #20 tab.rapdis 08/23/21 Unknown Rx metFORMIN [Glucophage] 500 mg PO BID #60 tablet 08/23/21 Unknown Rx Rene Root [Rene] 250 mg PO QID PRN #30 capsule 08/26/21 Unknown Rx Nicotine Polacrilex [Nicotine Gum] 4 mg BC PRN #1 pack 08/26/21 Unknown Rx Promethazine HCl [Phenergan SUPPOS] 25 mg RC Q6HR PRN #20 supp 08/26/21 Unknown Rx ED Physical Exam - General Limitations: No Limitations General appearance: alert, anxious - Head Head exam: Present: atraumatic, normocephalic - Eye Eye exam: Present: normal appearance, EOMI. Absent: nystagmus - ENT ENT exam: Present: normal exam, normal orophraynx, mucous membranes moist, normal external ear exam - Neck Neck exam: Present: normal inspection, full ROM. Absent: tenderness, meningis mus - Respiratory Respiratory exam: Present: normal lung sounds bilaterally. Absent: respiratory distress, wheezes, rales, rhonchi, stridor - Cardiovascular Cardiovascular Exam: Present: regular rate, normal rhythm, normal heart sounds. Absent: bradycardia, tachycardia, irregular rhythm, systolic murmur, diastolic murmur, rubs, gallop - GI/Abdominal GI/Abdominal exam: Present: soft. Absent: distended, tenderness, guarding, rebound, rigid, pulsatile mass - Extremities Exam Extremities exam: Present: normal inspection, full ROM, other (2+ pulses noted in the bilateral upper and lower extremities. There is no palpable cord. negative Homans sign. Muscular compartments are soft. The pelvis is stable.). Absent: pedal edema, calf tenderness - Back Exam Back exam: Present: normal inspection, full ROM. Absent: tenderness, CVA tenderness (R), CVA tenderness (L), paraspinal tenderness, vertebral tenderness - Neurological Exam Neurological exam: Present: alert, oriented X3, other (No facial droop. Tongue midline. Extraocular movements intact bilaterally. Facial sensation intact to light touch in V1, V2, V3 distribution bilaterally. 5 and a 5 strength in 4 extremities. Sensation intact to light touch in 4 extremities.). Absent: motor sensory deficit - Psychiatric Psychiatric exam: Present: anxious - Skin Skin exam: Present: warm, dry, intact, normal color. Absent: rash ED Course Vital Signs 08/25/21 22:37 Temperature 98.8 F Pulse Rate 102 H Respiratory 17 Rate Blood Pressure 140/94 [Right] O2 Sat by Pulse 100 Oximetry - Reevaluation(s) Reevaluation #1: 08/26/21 01:17 Differential diagnosis, including but not limited to: GERD, gastritis, hiatal hernia, cyclic vomiting syndrome, cannabinoid hyperemesis syndrome, gastroparesis, diabetic ketoacidosis Assessment and plan: 34-year-old female, with known history of marijuana consumption, as well as diabetes, likely presenting with cannabinoid hyperemesis syndrome with possible superimposed gastroparesis. Laboratory studies today essentially nonactionable. Patient had a urinalysis and thyroid evaluation a few days ago. She also had a CT scan of her abdomen pelvis a few days ago which was unremarkable. Abdomen soft and benign, with distracted exam, without rebound, guarding or peritoneal signs. Patient will be treated supportively and symptomatically, trial dose of haloperidol, reassess. Tachycardia resolved. 08/26/21 02:27 Patient reassessed multiple times. No active vomiting. Feels much improved after haloperidol, Protonix, Reglan, and Carafate. No active vomiting. Tolerating liquid feeds. Patient educated on natural history of cannabinoid hyperemesis syndrome, as well as gastroparesis. Laboratory studies essentially unremarkable. Patient endorses readiness for discharge ED Medical Decision Making - Lab Data Result diagrams: 08/26/21 00:19 08/26/21 00:19 Vital Signs 08/25/21 22:37 Temperature 98.8 F Pulse Rate 102 H Respiratory 17 Rate Blood Pressure 140/94 [Right] O2 Sat by Pulse 100 Oximetry Lab Results 08/26/21 08/26/21 08/26/21 Range/Units 00:19 00:19 00:19 WBC 6.4 (4.5-11.0) K/mm3 RBC 5.31 H (3.65-5.03) M/mm3 Hgb 12.0 (10.1-14.3) gm/dl Hct 36.9 (30.3-42.9) % MCV 70 L (79-97) fl MCH 23 L (28-32) pg MCHC 33 (30-34) % RDW 18.8 H (13.2-15.2) % Plt Count 394 (140-440) K/mm3 Lymph % (Auto) 37.2 H (13.4-35.0) % [place] % (Auto) 7.9 H (0.0-7.3) % Eos % (Auto) 0.5 (0.0-4.3) % Baso % (Auto) 1.1 (0.0-1.8) % Lymph # (Auto) 2.4 (1.2-5.4) K/mm3 [place] # (Auto) 0.5 (0.0-0.8) K/mm3 Eos # (Auto) 0.0 (0.0-0.4) K/mm3 Baso # (Auto) 0.1 (0.0-0.1) K/mm3 Seg Neutrophils % 53.3 (40.0-70.0) % Seg Neutrophils # 3.4 (1.8-7.7) K/mm3 PT 15.4 H (12.2-14.9) Sec. INR 1.09 (0.87-1.13) VBG pH (7.320-7.420) Sodium 131 L (137-145) mmol/L Potassium 3.5 L (3.6-5.0) mmol/L Chloride 93.1 L (98-107) mmol/L Carbon Dioxide 23 (22-30) mmol/L Anion Gap 18 mmol/L BUN 14 (7-17) mg/dL Creatinine 0.6 (0.6-1.2) mg/dL Estimated GFR > 60 ml/min BUN/Creatinine Ratio 23 % Glucose 178 H (65-100) mg/dL Calcium 9.6 (8.4-10.2) mg/dL Total Bilirubin 0.70 (0.1-1.2) mg/dL AST 13 (5-40) units/L ALT 9 (7-56) units/L Alkaline Phosphatase 85 (35-129) units/L Troponin T < 0.010 (0.00-0.029) ng/mL Total Protein 8.5 H (6.3-8.2) g/dL Albumin 4.8 (3.9-5) g/dL Albumin/Globulin Ratio 1.3 % Lipase 29 (13-60) units/L HCG, Quant (0-4) mIU/mL 08/26/21 08/26/21 Range/Units 00:19 00:19 WBC (4.5-11.0) K/mm3 RBC (3.65-5.03) M/mm3 Hgb (10.1-14.3) gm/dl Hct (30.3-42.9) % MCV (79-97) fl MCH (28-32) pg MCHC (30-34) % RDW (13.2-15.2) % Plt Count (140-440) K/mm3 Lymph % (Auto) (13.4-35.0) % [place] % (Auto) (0.0-7.3) % Eos % (Auto) (0.0-4.3) % Baso % (Auto) (0.0-1.8) % Lymph # (Auto) (1.2-5.4) K/mm3 [place] # (Auto) (0.0-0.8) K/mm3 Eos # (Auto) (0.0-0.4) K/mm3 Baso # (Auto) (0.0-0.1) K/mm3 Seg Neutrophils % (40.0-70.0) % Seg Neutrophils # (1.8-7.7) K/mm3 PT (12.2-14.9) Sec. INR (0.87-1.13) VBG pH 7.367 (7.320-7.420) Sodium (137-145) mmol/L Potassium (3.6-5.0) mmol/L Chloride (98-107) mmol/L Carbon Dioxide (22-30) mmol/L Anion Gap mmol/L BUN (7-17) mg/dL Creatinine (0.6-1.2) mg/dL Estimated GFR ml/min BUN/Creatinine Ratio % Glucose (65-100) mg/dL Calcium (8.4-10.2) mg/dL Total Bilirubin (0.1-1.2) mg/dL AST (5-40) units/L ALT (7-56) units/L Alkaline Phosphatase (35-129) units/L Troponin T (0.00-0.029) ng/mL Total Protein (6.3-8.2) g/dL Albumin (3.9-5) g/dL Albumin/Globulin Ratio % Lipase (13-60) units/L HCG, Quant < 2 (0-4) mIU/mL - EKG Data -: EKG Interpreted by Nd EKG shows normal: sinus rhythm Rate: normal - EKG Data 08/26/21 01:13 The EKG is interpreted at 23: 46 Sinus rhythm, rate 81 bpm. Normal axis, normal P wave axis, QTC 4 7 9 ms. Nonspecific T wave abnormalities. Abnormal EKG. Not a STEMI. - Radiology Data Radiology results: pending, report reviewed, image reviewed [facility] [address] [place] [address] Cat Scan Report Signed Patient: JULIANNA SCHULZ MR# : [id number] : 1985 Acct:[id number] Age/Sex: 36 / F ADM Date: 08/23/21 Loc: ED Attending Dr: Ordering Physician: REBECCA DOSS MD Date of Service: 08/23/21 Procedure(s): CT abdomen pelvis w con Accession Number(s): [id number] cc: REBECCA DOSS MD CT ABDOMEN AND PELVIS WITH CONTRAST INDICATION / CLINICAL INFORMATION: n/v abdominal pain. TECHNIQUE: Axial CT images were obtained through the abdomen and pelvis after 100 cc of Omnipaque 300 IV contrast. Sagittal and coronal reformatted images. All CT scans at this location are performed using CT dose reduction for ALARA by means of automated exposure control. COMPARISON: 04/28/2018 FINDINGS: LOWER CHEST: No significant abnormality. LIVER: No significant abnormality. GALLBLADDER: No significant abnormality. BILE DUCTS: No significant abnormality. PANCREAS: No significant abnormality. SPLEEN: No significant abnormality. ADRENALS: No significant abnormality. RIGHT KIDNEY and URETER: No significant abnormality. LEFT KIDNEY and URETER: No significant abnormality. STOMACH and SMALL BOWEL: No significant abnormality. COLON: No significant abnormality. APPENDIX: No significant abnormality. PERITONEUM: No free fluid. No free air. No fluid collection. LYMPH NODES: No significant adenopathy. AORTA and ARTERIES: No significant abnormality. IVC and VEINS: No significant abnormality. URINARY BLADDER: No significant abnormality. REPRODUCTIVE ORGANS: No significant abnormality. ADDITIONAL FINDINGS: None. SKELETAL SYSTEM: No significant abnormality. IMPRESSION: No significant abnormality. Signer Name: Marino Gonzalez Jr, MD Signed: 08/23/2021 4:15 PM Workstation Name: [id number] Transcribed By: TTR Dictated By: MARINO GONZALEZ JR, MD Electronically Authenticated By: MARINO GONZALEZ JR, MD Signed Date/Time: 08/23/211614 DD/ 1613 Critical care attestation.: If time is entered above; I have spent that time in minutes in the direct care of this critically ill patient, excluding procedure time. ED Disposition Clinical Impression: Nausea and vomiting, T2DM (type 2 diabetes mellitus), History of marijuana use, Encounter for tobacco use cessation counseling Disposition: 01 HOME / SELF CARE / HOMELESS Is pt being admited?: No Does the pt Need Aspirin: No Condition: Good Instructions: Diabetes Mellitus Type 2 in Adults (ED) Additional Instructions: As we discussed, symptoms likely coming from combination of cannabinoid hyperemesis syndrome, and diabetic gastroparesis. Treatment is to discontinue marijuana consumption, as well as improve underlying diabetes. Symptoms may recur, over the next few weeks to months. Patient may take the prescribed Zofran and Reglan as previously prescribed, you may also take oral rene tablets, as needed for nausea and vomiting, and Phenergan suppositories as needed for intractable nausea and vomiting. Patient may also take a hot bath or hot shower as often as as needed for symptom relief, and this could also be used in combination with applying Tabasco or hot sauce to the anterior abdominal wall. Recommend that patient not consume Motrin, ibuprofen, Naprosyn, Aleve, heavy or spicy foods, tobacco, alcohol or smoke products. May take [id number] Pepcid, Protonix, or acetaminophen/Tylenol as needed for physical pain. recommend follow-up with an outpatient primary care doctor or econometrics professor within the next 3 to 4 weeks. Please return to the emergency room right away with new pain, worsened pain, migration of pain, projectile vomiting, change in mental status, confusion, inability tolerate liquid feeds, new, worsened or different symptoms not present on the initial emergency room evaluation Referrals: [facility] [Provider Group] - 3-5 Days [facility] [Provider Group] - 3-5 Days Forms: Work/School Release Form(ED)
[2021-08-26 00:40] LABS: Basophils # (Auto) 0.1 K/mm3 (0.0-0.1); Basophils % (Auto) 1.1 % (0.0-1.8); Eosinophils % (Auto) 0.5 % (0.0-4.3); Hematocrit 36.9 % (30.3-42.9); Lymphocytes # (Auto) 2.4 K/mm3 (1.2-5.4); Lymphocytes % (Auto) 37.2 % (13.4-35.0); Mean Corpuscular HGB Conc 33 % (30-34); Monocytes # (Auto) 0.5 K/mm3 (0.0-0.8); Monocytes % (Auto) 7.9 % (0.0-7.3); Platelet Count 394 K/mm3 (140-440); Red Blood Count 5.31 M/mm3 (3.65-5.03); Red Cell Distribution Width 18.8 % (13.2-15.2)
[2021-08-26 00:45] LABS: Mean Corpuscular Volume 70 fl (79-97)
[2021-08-26 00:56] LABS: INR 1.09 (0.87-1.13)
[2021-08-26 01:05] LABS: Alanine Aminotransferase 9 units/L (7-56); Albumin 4.8 g/dL (3.9-5); Blood Urea Nitrogen 14 mg/dL (7-17); Calcium 9.6 mg/dL (8.4-10.2); Hemolysis Index 0
[2021-08-26 01:06] LABS: BUN/Creatinine Ratio 23
[2021-08-26] MEDS ORDERED: SUCRALFATE 1 GM/10 ML ORAL LIQD PO ONE (01:39)
[2021-08-26] MEDS ORDERED: METOCLOPRAMIDE 10 MG/2 ML INJ IV ONE (01:39)
[2021-08-26 05:33] VITALS: BP 122/76
--- NOTE | 2021-08-26 09:32 | Electrocardiograph Report ---
[facility] Test Date: 2021-08-25 Test Time: 23:46:40 Pat Name: JULIANNA SCHULZ Department: Room: Gender: F Entry Table Operator: JUDITH : 1985 Requested By: RAFAEL MURRY Order Number: [id number] Reading MD: Demetri Calderon Measurements Intervals [place] Rate: 81 P: 62 MA: 186 QRS: 47 QRSD: 94 T: -82 QT: 411 QTc: 479 Interpretive Statements Sinus rhythm Nonspecific T abnormalities, diffuse leads No previous ECG available for comparison Electronically Signed On 08-26-2021 9:32:46 EST by Demetri Calderon
== END 2021-08-26 05:38 | disposition home or self-care (01) ==
LOC: ED 21:36
DX: R11.2 Nausea with vomiting, unspecified (principal); D25.9 Leiomyoma of uterus, unspecified; K29.00 Acute gastritis without bleeding; N93.8 Other specified abnormal uterine and vaginal bleeding; E11.9 Type 2 diabetes mellitus without complications; F12.90 Cannabis use, unspecified, uncomplicated; F17.200 Nicotine dependence, unspecified, uncomplicated; I10 Essential (primary) hypertension; F10.20 Alcohol dependence, uncomplicated; Z79.84 Long term (current) use of oral hypoglycemic drugs; Z79.899 Other long term (current) drug therapy
CPT/HCPCS: 36415; 80053; 82550; 82805; 83690; 83735; 84484; 84702; 85025; 85610; 93005; 93010; 96361; 96372; 96374; 96375; 99283; C9113; J1630; J2765; J7120

== ENCOUNTER 2021-10-02 10:19 | Emergency (ER) | payer MEDICAID ==
[2021-10-02] MEDS ORDERED: SODIUM CHLORIDE 0.9% 1000 ML 1,000 ML IV ONE ×3 (13:13→14:32)
[2021-10-02] MEDS ORDERED: ONDANSETRON 4 MG/2 ML INJ IV ONE ×2 (13:13→14:31)
--- NOTE | 2021-10-02 13:18 | Event Note ---
ED Screening Note Date of service: 10/02/21 Time: 13:16 ED Screening Note: 36-year-old black female with a past medical history of diabetes type 2 presents to the emergency department for evaluation of 4-day history of nausea, vomiting, abdominal pain and cramping, and vaginal bleeding. She states that she has not been able to keep any food down for the past 2 to 3 days and when she started with the nausea vomiting. Started despite the fact that she just went out for. 2 weeks prior. She complains of weakness and fatigue. She denies fever, dysuria, and vaginal discharge. This initial assessment/diagnostic orders/clinical plan/treatment(s) is/are subject to change based on patients health status, clinical progression and re- assessment by fellow clinical providers in the ED. Further treatment and workup at subsequent clinical providers discretion. Patient/guardian urged not to elope from the ED as their condition may be serious if not clinically assessed and managed. Initial orders include: CBC, CMP, venous pH, UA, Accu-Chek, Zofran 4 mg IV and 1 L NS bolus.
[2021-10-02 13:53] LABS: Hematocrit 41.4 % (30.3-42.9); Hemoglobin 13.1 gm/dl (10.1-14.3); Mean Corpuscular HGB Conc 32 % (30-34); Mean Corpuscular Volume 71 fl (79-97); Platelet Count 386 K/mm3 (140-440); Red Cell Distribution Width 19.5 % (13.2-15.2)
[2021-10-02 14:03] LABS: Bacteria,Urine 1+ /HPF (Negative); Bilirubin,Urine SM (Negative); Blood,Urine NEG (Negative); Color,Urine Amber (Yellow); Mucus,Urine 3+ /HPF
[2021-10-02 14:07] LABS: Ictotest,Urine Negative (Negative)
[2021-10-02 14:11] LABS: Alanine Aminotransferase 6 units/L (7-56); Albumin 4.7 g/dL (3.9-5); Blood Urea Nitrogen 20 mg/dL (7-17); Calcium 9.7 mg/dL (8.4-10.2); Hemolysis Index 1
[2021-10-02] MEDS ORDERED: HYDROmorphone 1 MG/1 ML INJ IV ONE ×2 (14:31→16:46)
[2021-10-02] MEDS ORDERED: METOCLOPRAMIDE 10 MG/2 ML INJ IV ONE (14:31)
[2021-10-02] MEDS ORDERED: FAMOTIDINE 20 MG/2 ML INJ IV ONE (14:31)
[2021-10-02] MEDS ORDERED: diphenhydrAMINE 50 MG/ML VIAL IV ONE (14:31)
[2021-10-02 14:39] LABS: BUN/Creatinine Ratio 29
[2021-10-02 14:53] VITALS: BP 123/82
--- NOTE | 2021-10-02 15:59 | Emergency Department Report ---
ED Abdominal Pain HPI - General Chief Complaint: Urogenital-Female Stated Complaint: SEVERE ABD PAIN/NAUSEA/VOMITING/BLEEDING Time Seen by Provider: 10/02/21 12:10 Source: patient Mode of arrival: Ambulatory Limitations: No Limitations - History of Present Illness Initial Comments: 36-year-old female with a past medical history of [id number] diabetes, medication noncompliance, colitis, and previous presents to the hospital complaining of 3 days of abdominal pain, nausea, vomiting, and p.o. intolerance. Patient complains of a aching pain to the epigastric pain that is constant, moderate to severe, worse with palpation. Patient denies hematemesis, diarrhea, fever, or dysuria. She does state that she has been having vaginal bleeding since last week and completed her period 2 weeks ago. Patient discontinued her Metformin use 1 week ago developing diffuse bumps/papules while taking the medication. She does not have a primary care doctor to adjust her medication and is not currently taking any other diabetes medication. Severity scale (0 -10): 0 - Related Data Previous Rx's Medication Instructions Recorded Last Taken Type Cholestyramine (with Sugar) 4 gm PO BID #30 packet 05/01/18 Unknown Rx [Questran] Metoprolol [Lopressor TAB] 25 mg PO BID #60 tablet 05/01/18 Unknown Rx methIMAzole [Tapazole] 10 mg PO Q24HR #30 tablet 05/01/18 Unknown Rx metroNIDAZOLE [Flagyl TAB] 500 mg PO Q8H #30 tablet 05/01/18 Unknown Rx oxyCODONE /ACETAMINOPHEN [Percocet 1 tab PO Q4HR #12 tab 05/01/18 Unknown Rx 5/325] Metoclopramide [Reglan] 10 mg PO TID PRN #20 tab 08/23/21 Unknown Rx Ondansetron [Zofran Odt] 4 mg PO Q6H PRN #20 tab.rapdis 08/23/21 Unknown Rx metFORMIN [Glucophage] 500 mg PO BID #60 tablet 08/23/21 Unknown Rx Vashti Root [Vashti] 250 mg PO QID PRN #30 capsule 08/26/21 Unknown Rx Nicotine Polacrilex [Nicotine Gum] 4 mg BC PRN #1 pack 08/26/21 Unknown Rx Famotidine [Pepcid] 20 mg PO BID #20 tablet 10/02/21 Unknown Rx Glimepiride [Amaryl] 1 mg PO QAM #30 tab 10/02/21 Unknown Rx HYDROcodone/APAP 5-325 [[place] 1 each PO Q6HR PRN #15 tablet 10/02/21 Unknown Rx 5-325 mg TAB] Ondansetron [Zofran ODT TAB] 4 mg PO Q6HR PRN #20 tab.rapdis 10/02/21 Unknown Rx Promethazine HCl [Phenergan SUPPOS] 25 mg RC Q6HR PRN #20 supp 10/02/21 Unknown Rx Allergies Allergy/AdvReac Type Severity Reaction Status Date / Time No Known Allergies Allergy Verified 10/02/21 10:52 ED Review of Systems ROS: Stated complaint: SEVERE ABD PAIN/NAUSEA/VOMITING/BLEEDING Other details as noted in HPI Comment: All other systems reviewed and negative ED Past Medical Hx - Past Medical History Hx Hypertension: Yes Hx Heart Attack/AMI: No Hx Congestive Heart Failure: No Hx Diabetes: Yes Hx Deep Vein Thrombosis: No Hx Liver Disease: No Hx Renal Disease: No Hx Sickle Cell Disease: No Hx Seizures: No Hx Psychiatric Treatment: No Hx Asthma: No Hx COPD: No Hx HIV: No Additional medical history: hyperthyroid, colitis - Surgical History Additional Surgical History: c sect - Social History Smoking Status: Current Some Day Smoker Substance Use Type: Marijuana - Medications Home Medications: Home Medications Medication Instructions Recorded Confirmed Last Taken Type Cholestyramine (with Sugar) 4 gm PO BID #30 packet 05/01/18 Unknown Rx [Questran] Metoprolol [Lopressor TAB] 25 mg PO BID #60 tablet 05/01/18 Unknown Rx methIMAzole [Tapazole] 10 mg PO Q24HR #30 tablet 05/01/18 Unknown Rx metroNIDAZOLE [Flagyl TAB] 500 mg PO Q8H #30 tablet 05/01/18 Unknown Rx oxyCODONE /ACETAMINOPHEN [Percocet 1 tab PO Q4HR #12 tab 05/01/18 Unknown Rx 5/325] Metoclopramide [Reglan] 10 mg PO TID PRN #20 tab 08/23/21 Unknown Rx Ondansetron [Zofran Odt] 4 mg PO Q6H PRN #20 tab.rapdis 08/23/21 Unknown Rx metFORMIN [Glucophage] 500 mg PO BID #60 tablet 08/23/21 Unknown Rx Vashti Root [Vashti] 250 mg PO QID PRN #30 capsule 08/26/21 Unknown Rx Nicotine Polacrilex [Nicotine Gum] 4 mg BC PRN #1 pack 08/26/21 Unknown Rx Famotidine [Pepcid] 20 mg PO BID #20 tablet 10/02/21 Unknown Rx Glimepiride [Amaryl] 1 mg PO QAM #30 tab 10/02/21 Unknown Rx HYDROcodone/APAP 5-325 [[place] 1 each PO Q6HR PRN #15 tablet 10/02/21 Unknown Rx 5-325 mg TAB] Ondansetron [Zofran ODT TAB] 4 mg PO Q6HR PRN #20 tab.rapdis 10/02/21 Unknown Rx Promethazine HCl [Phenergan SUPPOS] 25 mg RC Q6HR PRN #20 supp 10/02/21 Unknown Rx ED Physical Exam - General Limitations: No Limitations - Other Other exam information: General: Moderate distress secondary to pain Head: Atraumatic Eyes: normal appearance ENT: Moist mucous membranes Neck: Normal appearance, no midline tenderness Chest: Clear to auscultation bilaterally CV: Regular rate and rhythm Abdomen: Soft, normal bowel sounds, epigastric tenderness , nondistended, no rebound or guarding Back: Normal inspection Extremity: Normal inspection, full range of motion Neuro: Alert O x 3, no facial asymmetry, speech clear, no gross motor sensory deficit Psych: Appropriate behavior Skin: No rash ED Course Vital Signs 10/02/21 10/02/21 10:49 14:51 Temperature 97.9 F Pulse Rate 106 H 89 Respiratory 16 18 Rate Blood Pressure 105/72 Blood Pressure 123/82 [Left] O2 Sat by Pulse 99 100 Oximetry - Consultations Consultation #1: 10/02/21 18:42 Brief consult obtained from hospitalist Dr. Montgomery regarding alternative to Metformin. He suggests glimepiride 1 mg daily ED Medical Decision Making - Lab Data Result diagrams: 10/02/21 13:37 10/02/21 13:37 Lab Results 10/02/21 10/02/21 10/02/21 Range/Units 13:37 13:37 13:37 WBC 5.1 (4.5-11.0) K/mm3 RBC 5.80 H (3.65-5.03) M/mm3 Hgb 13.1 (10.1-14.3) gm/dl Hct 41.4 (30.3-42.9) % MCV 71 L (79-97) fl MCH 23 L (28-32) pg MCHC 32 (30-34) % RDW 19.5 H (13.2-15.2) % Plt Count 386 (140-440) K/mm3 VBG pH (7.320-7.420) Sodium 130 L (137-145) mmol/L Potassium 4.0 (3.6-5.0) mmol/L Chloride 93.0 L (98-107) mmol/L Carbon Dioxide 23 (22-30) mmol/L Anion Gap 18 mmol/L BUN 20 H (7-17) mg/dL Creatinine 0.7 (0.6-1.2) mg/dL Estimated GFR > 60 ml/min BUN/Creatinine Ratio 29 % Glucose 143 H (65-100) mg/dL POC Glucose (70-105) mg/dL Calcium 9.7 (8.4-10.2) mg/dL Total Bilirubin 0.80 (0.1-1.2) mg/dL AST 12 (5-40) units/L ALT 6 L (7-56) units/L Alkaline Phosphatase 88 (35-129) units/L Total Protein 8.8 H (6.3-8.2) g/dL Albumin 4.7 (3.9-5) g/dL Albumin/Globulin Ratio 1.1 % Lipase 32 (13-60) units/L HCG, Qual Negative (Negative) Urine Color (Yellow) Urine Turbidity (Clear) Urine pH (5.0-7.0) Ur Specific Revloc (1.003-1.030) Urine Protein (Negative) mg/dL Urine Glucose (UA) (Negative) mg/dL Urine Ketones (Negative) mg/dL Urine Blood (Negative) Urine Nitrite (Negative) Urine Bilirubin (Negative) Urine Ictotest (Negative) Urine Urobilinogen (<2.0) mg/dL Ur Leukocyte Esterase (Negative) Urine WBC (Auto) (0.0-6.0) /HPF Urine RBC (Auto) (0.0-6.0) /HPF U Epithel Cells (Auto) (0-13.0) /HPF Urine Bacteria (Auto) (Negative) /HPF Urine Mucus /HPF 04/10/2010/02/21 10/02/21 Range/Units 13:37 14:57 Unknown WBC (4.5-11.0) K/mm3 RBC (3.65-5.03) M/mm3 Hgb (10.1-14.3) gm/dl Hct (30.3-42.9) % MCV (79-97) fl MCH (28-32) pg MCHC (30-34) % RDW (13.2-15.2) % Plt Count (140-440) K/mm3 VBG pH 7.314 L (7.320-7.420) Sodium (137-145) mmol/L Potassium (3.6-5.0) mmol/L Chloride (98-107) mmol/L Carbon Dioxide (22-30) mmol/L Anion Gap mmol/L BUN (7-17) mg/dL Creatinine (0.6-1.2) mg/dL Estimated GFR ml/min BUN/Creatinine Ratio % Glucose (65-100) mg/dL POC Glucose 106 H (70-105) mg/dL Calcium (8.4-10.2) mg/dL Total Bilirubin (0.1-1.2) mg/dL AST (5-40) units/L ALT (7-56) units/L Alkaline Phosphatase (35-129) units/L Total Protein (6.3-8.2) g/dL Albumin (3.9-5) g/dL Albumin/Globulin Ratio % Lipase (13-60) units/L HCG, Qual (Negative) Urine Color Ana (Yellow) Urine Turbidity Slightly-cloudy (Clear) Urine pH 5.0 (5.0-7.0) Ur Specific Revloc 1.035 H (1.003-1.030) Urine Protein 100 mg/dl (Negative) mg/dL Urine Glucose (UA) 50 (Negative) mg/dL Urine Ketones 20 (Negative) mg/dL Urine Blood Neg (Negative) Urine Nitrite Neg (Negative) Urine Bilirubin Sm (Negative) Urine Ictotest Negative (Negative) Urine Urobilinogen 2.0 (<2.0) mg/dL Ur Leukocyte Esterase Neg (Negative) Urine WBC (Auto) 10.0 H (0.0-6.0) /HPF Urine RBC (Auto) 2.0 (0.0-6.0) /HPF U Epithel Cells (Auto) 14.0 H (0-13.0) /HPF Urine Bacteria (Auto) 1+ (Negative) /HPF Urine Mucus 3+ /HPF - Radiology Data Radiology results: report reviewed CT ABDOMEN AND PELVIS WITH CONTRAST INDICATION / CLINICAL INFORMATION: Nausea with vomiting, unspecified abdominal pain. TECHNIQUE: Axial CT images were obtained through the abdomen and pelvis after 100 cc Omnipaque [address] scans at this location are performed using CT dose reduction for ALARA by means of automated exposure control. COMPARISON: CT abdomen and pelvis with contrast from 08/23/2021. FINDINGS: LOWER CHEST: No significant abnormality. LIVER: No significant abnormality. GALLBLADDER: No significant abnormality. BILE DUCTS: No significant abnormality. PANCREAS: No significant abnormality. SPLEEN: No significant abnormality. ADRENALS: No significant abnormality. RIGHT KIDNEY/URETER: No significant abnormality. LEFT KIDNEY/URETER: No significant abnormality. STOMACH/SMALL BOWEL: No significant abnormality. COLON: No significant abnormality. APPENDIX: No significant abnormality. PERITONEUM: No free fluid. No free air. No fluid collection. LYMPH NODES: No significant adenopathy. VASCULATURE: No significant abnormality. URINARY BLADDER: No significant abnormality. REPRODUCTIVE ORGANS: 2-3 low density lesions are seen posteriorly along the uterine fundus measuring up to 1.3 cm and possibly representing cysts or fibroids. No other significant abnormality. ADDITIONAL FINDINGS: None. BONES: No significant abnormality IMPRESSION: 1. No acute findings to explain the patient's symptoms. 2. Additional findings as above. - Medical Decision Making 36-year-old female diet presents to the hospital nausea, vomiting, p.o. intolerance. Patient has noncompliance and previous ED visits for similar symptoms. Patient treated with IV fluids and symptomatic treatment. CT shows uterine fibroids without acute findings. Patient is UA is grossly contaminated secondary to vaginal bleeding and patient does not endorse dysuria, frequency, or burning. Alternative diabetic medication provided and patient encouraged to check her sugar on a regular basis. Mild hyponatremia noted and patient received 3 L of normal saline during ED stay. follow-up with GI and PMD will be encouraged - Differential Diagnosis DKA, gastritis, gastroparesis, intra-abdominal infection, UTI, , f Critical Care Time: No Critical care attestation.: If time is entered above; I have spent that time in minutes in the direct care of this critically ill patient, excluding procedure time. ED Disposition Clinical Impression: T2DM (type 2 diabetes mellitus), Fibroid uterus, DUB (dysfunctional uterine bleeding), Acute gastritis Disposition: 01 HOME / SELF CARE / HOMELESS Is pt being admited?: No Does the pt Need Aspirin: No Condition: Stable Instructions: Diabetes Mellitus Type 2 in Adults (ED), Uterine Fibroids, [id number], Type 2 Diabetes Mellitus, Diagnosis, Adult, Gastritis, Adult, [id number] Additional Instructions: Take the medication as prescribed. Follow-up with your doctor or doctor/clinic provided. Return if symptoms worsen as indicated by your discharge instructions. You were placed on an alternative medication for your diabetes. The medications glimepiride 1 mg once a day. Please continue to monitor your glucose readings to verify effectiveness of medication and to monitor for glucose levels that may be either too low or too high. Prescriptions: Glimepiride [Amaryl] 1 mg PO QAM #30 tab HYDROcodone/APAP 5-325 [[place] 5-325 mg TAB] 1 each PO Q6HR PRN #15 tablet PRN Reason: Pain Famotidine [Pepcid] 20 mg PO BID #20 tablet Promethazine HCl [Phenergan SUPPOS] 25 mg RC Q6HR PRN #20 supp PRN Reason: Nausea Ondansetron [Zofran ODT TAB] 4 mg PO Q6HR PRN #20 tab.rapdis PRN Reason: Nausea And Vomiting Referrals: PRIMARY CARE, [Primary Care Provider] - 3-5 Days JOSE GARCIA MD [Staff Physician] - 3-5 Days (GI doctor) ADELAIDA PADRON MD [Staff Physician] - 3-5 Days (primary care doctor) Time of Disposition: 18:41
--- NOTE | 2021-10-02 17:02 | Cat Scan Report ---
CT ABDOMEN AND PELVIS WITH CONTRAST INDICATION / CLINICAL INFORMATION: Nausea with vomiting, unspecified abdominal pain. TECHNIQUE: Axial CT images were obtained through the abdomen and pelvis after 100 cc Omnipaque [address] scans at this location are performed using CT dose reduction for ALARA by means of automated exposure control. COMPARISON: CT abdomen and pelvis with contrast from 08/23/2021. FINDINGS: LOWER CHEST: No significant abnormality. LIVER: No significant abnormality. GALLBLADDER: No significant abnormality. BILE DUCTS: No significant abnormality. PANCREAS: No significant abnormality. SPLEEN: No significant abnormality. ADRENALS: No significant abnormality. RIGHT KIDNEY/URETER: No significant abnormality. LEFT KIDNEY/URETER: No significant abnormality. STOMACH/SMALL BOWEL: No significant abnormality. COLON: No significant abnormality. APPENDIX: No significant abnormality. PERITONEUM: No free fluid. No free air. No fluid collection. LYMPH NODES: No significant adenopathy. VASCULATURE: No significant abnormality. URINARY BLADDER: No significant abnormality. REPRODUCTIVE ORGANS: 2-3 low density lesions are seen posteriorly along the uterine fundus measuring up to 1.3 cm and possibly representing cysts or fibroids. No other significant abnormality. ADDITIONAL FINDINGS: None. BONES: No significant abnormality IMPRESSION: 1. No acute findings to explain the patient's symptoms. 2. Additional findings as above. Signer Name: Jasbir Tucker MD Signed: 10/02/2021 4:54 PM Workstation Name: [id number]
== END 2021-10-02 18:56 | disposition home or self-care (01) ==
LOC: ED 10:19
DX: K29.00 Acute gastritis without bleeding (principal); N93.8 Other specified abnormal uterine and vaginal bleeding; D25.9 Leiomyoma of uterus, unspecified; E11.9 Type 2 diabetes mellitus without complications; I10 Essential (primary) hypertension; Z79.899 Other long term (current) drug therapy; Z98.890 Other specified postprocedural states; F17.200 Nicotine dependence, unspecified, uncomplicated
CPT/HCPCS: 36415; 74177; 80053; 81001; 82805; 82962; 83690; 84703; 85027; 87086; 96361; 96374; 96375; 96376; 99284; J1170; J1200; J2405; J2765; J3490; J7030; Q9967; Q0162

== ENCOUNTER 2021-10-19 18:35 | Emergency (ER) | payer SELFPAY ==
[2021-10-19 20:02] VITALS: BP 155/80
--- NOTE | 2021-10-20 10:17 | Electrocardiograph Report ---
[facility] Test Date: 2021-10-19 Test Time: 19:19:39 Pat Name: JULIANNA SCHULZ Department: Room: Gender: F Social Work Faculty Member: HUSAM : 1985 Requested By: HARISH TEJEDA Order Number: [id number] Reading MD: Marc Marshall Measurements Intervals [place] Rate: 83 P: 83 [place]: 169 QRS: 65 QRSD: 85 T: -44 QT: 382 QTc: 449 Interpretive Statements Sinus rhythm Borderline T abnormalities, diffuse leads Compared to ECG 08/25/2021 23:46:40 No significant changes Electronically Signed On 10-20-2021 10:17:02 EDT by Marc Marshall
== END 2021-10-19 23:25 | disposition left against medical advice (07) ==
LOC: ED 18:35
DX: R07.89 Other chest pain (principal); Z53.21 Procedure and treatment not carried out due to patient leaving prior to being seen by health care provider
CPT/HCPCS: 93005

== ENCOUNTER 2021-10-20 13:58 | Emergency (ER) | payer SELFPAY ==
[2021-10-20] MEDS ORDERED: ONDANSETRON 4 MG/2 ML INJ IV ONE ×2 (15:37→19:28)
[2021-10-20] MEDS ORDERED: DICYCLOMINE 20 MG/2 ML INJ IM ONE (15:37)
[2021-10-20] MEDS ORDERED: SODIUM CHLORIDE 0.9% 1000 ML 1,000 ML IV ONE (15:37)
[2021-10-20 16:08] LABS: Hematocrit 37.2 % (30.3-42.9); Hemoglobin 11.7 gm/dl (10.1-14.3); Mean Corpuscular HGB Conc 31 % (30-34); Mean Corpuscular Volume 72 fl (79-97); Platelet Count 352 K/mm3 (140-440); Red Blood Count 5.14 M/mm3 (3.65-5.03); Red Cell Distribution Width 19.1 % (13.2-15.2)
[2021-10-20 16:15] LABS: Alanine Aminotransferase 8 units/L (7-56); Albumin 5.2 g/dL (3.9-5); BUN/Creatinine Ratio 20; Blood Urea Nitrogen 12 mg/dL (7-17); Calcium 9.7 mg/dL (8.4-10.2); Hemolysis Index 3
[2021-10-20] MEDS ORDERED: KETOROLAC 30 MG/1 ML INJ IV ONE (16:45)
[2021-10-20] MEDS ORDERED: diphenhydrAMINE 50 MG/ML VIAL IV ONE (16:45)
[2021-10-20] MEDS ORDERED: METOCLOPRAMIDE 10 MG/2 ML INJ IV ONE (16:45)
[2021-10-20 18:52] LABS: Mucus,Urine 2+ /HPF
[2021-10-20 18:55] LABS: Bilirubin,Urine NEG (Negative); Blood,Urine NEG (Negative); Color,Urine Yellow (Yellow)
[2021-10-20 18:56] LABS: HCG Qualitative,Urine Negative (Negative)
--- NOTE | 2021-10-20 19:18 | Emergency Department Report ---
ED N/V/D HPI - General Chief complaint: Nausea/Vomiting/Diarrhea Stated complaint: NAUSEA/VOMITTING/ABD PAIN X4 DAYS Time Seen by Provider: 10/20/21 15:26 Source: patient Mode of arrival: Ambulatory Limitations: No Limitations - History of Present Illness Initial comments: 36-year-old black female with a past medical history of diabetes reports with emergency department for evaluation of 4-day history of nausea and vomiting with intermittent abdominal pain. She states that she vomits at least 5-6 times per day and has not been able to keep anything down. She denies fever, dysuria, vaginal discharge, chest pain, shortness of breath, dizziness, and diaphoresis. MD complaint: nausea, vomiting, abdominal pain -: Gradual, days(s) (For) Associated Abdominal Pain: Yes Location: diffuse Radiation: none Severity: mild Pain Scale: 10 Quality: cramping, aching Consistency: intermittent Associated Symptoms: nausea/vomiting. denies: myalgias, chest pain, cough, diaphoresis, fever/chills, headaches, loss of appetite, malaise, rash, dysuria, shortness of breath, syncope, weakness - Related Data Previous Rx's Medication Instructions Recorded Last Taken Type Cholestyramine (with Sugar) 4 gm PO BID #30 packet 05/01/18 Unknown Rx [Questran] Metoprolol [Lopressor TAB] 25 mg PO BID #60 tablet 05/01/18 Unknown Rx methIMAzole [Tapazole] 10 mg PO Q24HR #30 tablet 05/01/18 Unknown Rx metroNIDAZOLE [Flagyl TAB] 500 mg PO Q8H #30 tablet 05/01/18 Unknown Rx oxyCODONE /ACETAMINOPHEN [Percocet 1 tab PO Q4HR #12 tab 05/01/18 Unknown Rx 5/325] Metoclopramide [Reglan] 10 mg PO TID PRN #20 tab 08/23/21 Unknown Rx Ondansetron [Zofran Odt] 4 mg PO Q6H PRN #20 tab.rapdis 08/23/21 Unknown Rx metFORMIN [Glucophage] 500 mg PO BID #60 tablet 08/23/21 Unknown Rx Vashti Root [Vashti] 250 mg PO QID PRN #30 capsule 08/26/21 Unknown Rx Nicotine Polacrilex [Nicotine Gum] 4 mg BC PRN #1 pack 08/26/21 Unknown Rx Famotidine [Pepcid] 20 mg PO BID #20 tablet 10/02/21 Unknown Rx Glimepiride [Amaryl] 1 mg PO QAM #30 tab 10/02/21 Unknown Rx HYDROcodone/APAP 5-325 [[place] 1 each PO Q6HR PRN #15 tablet 10/02/21 Unknown Rx 5-325 mg TAB] Ondansetron [Zofran ODT TAB] 4 mg PO Q6HR PRN #20 tab.rapdis 10/02/21 Unknown Rx Promethazine HCl [Phenergan SUPPOS] 25 mg RC Q6HR PRN #20 supp 10/02/21 Unknown Rx Dicyclomine [Bentyl] 20 mg PO QID PRN #21 tablet 10/20/21 Unknown Rx Metoclopramide [Reglan] 10 mg PO TID PRN #21 tab 10/20/21 Unknown Rx Allergies Allergy/AdvReac Type Severity Reaction Status Date / Time No Known Allergies Allergy Verified 10/20/21 16:28 ED Review of Systems ROS: Stated complaint: NAUSEA/VOMITTING/ABD PAIN X4 DAYS Other details as noted in HPI Comment: All other systems reviewed and negative Constitutional: denies: chills, fever, weakness ENT: denies: congestion Respiratory: denies: cough, shortness of breath, SOB with exertion, SOB at rest Cardiovascular: denies: chest pain, palpitations, dyspnea on exertion, orthopnea, edema, syncope, paroxysmal nocturnal dyspnea Gastrointestinal: abdominal pain, nausea, vomiting. denies: diarrhea, hematemesis, melena, hematochezia Genitourinary: denies: urgency, dysuria, frequency, hematuria, discharge Musculoskeletal: denies: back pain Skin: denies: rash, lesions Neurological: denies: headache, weakness, numbness, paresthesias, abnormal gait, vertigo ED Past Medical Hx - Past Medical History Hx Hypertension: Yes Hx Heart Attack/AMI: No Hx Congestive Heart Failure: No Hx Diabetes: Yes Hx Deep Vein Thrombosis: No Hx Liver Disease: No Hx Renal Disease: No Hx Sickle Cell Disease: No Hx Seizures: No Hx Psychiatric Treatment: No Hx Asthma: No Hx COPD: No Hx HIV: No Additional medical history: hyperthyroid, colitis - Surgical History Additional Surgical History: c sect - Social History Smoking Status: Never Smoker Substance Use Type: None - Medications Home Medications: Home Medications Medication Instructions Recorded Confirmed Last Taken Type Cholestyramine (with Sugar) 4 gm PO BID #30 packet 05/01/18 Unknown Rx [Questran] Metoprolol [Lopressor TAB] 25 mg PO BID #60 tablet 05/01/18 Unknown Rx methIMAzole [Tapazole] 10 mg PO Q24HR #30 tablet 05/01/18 Unknown Rx metroNIDAZOLE [Flagyl TAB] 500 mg PO Q8H #30 tablet 05/01/18 Unknown Rx oxyCODONE /ACETAMINOPHEN [Percocet 1 tab PO Q4HR #12 tab 05/01/18 Unknown Rx 5/325] Metoclopramide [Reglan] 10 mg PO TID PRN #20 tab 08/23/21 Unknown Rx Ondansetron [Zofran Odt] 4 mg PO Q6H PRN #20 tab.rapdis 08/23/21 Unknown Rx metFORMIN [Glucophage] 500 mg PO BID #60 tablet 08/23/21 Unknown Rx Vashti Root [Vashti] 250 mg PO QID PRN #30 capsule 08/26/21 Unknown Rx Nicotine Polacrilex [Nicotine Gum] 4 mg BC PRN #1 pack 08/26/21 Unknown Rx Famotidine [Pepcid] 20 mg PO BID #20 tablet 10/02/21 Unknown Rx Glimepiride [Amaryl] 1 mg PO QAM #30 tab 10/02/21 Unknown Rx HYDROcodone/APAP 5-325 [[place] 1 each PO Q6HR PRN #15 tablet 10/02/21 Unknown Rx 5-325 mg TAB] Ondansetron [Zofran ODT TAB] 4 mg PO Q6HR PRN #20 tab.rapdis 10/02/21 Unknown Rx Promethazine HCl [Phenergan SUPPOS] 25 mg RC Q6HR PRN #20 supp 10/02/21 Unknown Rx Dicyclomine [Bentyl] 20 mg PO QID PRN #21 tablet 10/20/21 Unknown Rx Metoclopramide [Reglan] 10 mg PO TID PRN #21 tab 10/20/21 Unknown Rx ED Physical Exam - General Limitations: No Limitations General appearance: alert - Eye Eye exam: Present: normal appearance. Absent: conjunctival injection - Neck Neck exam: Present: normal inspection, full ROM. Absent: tenderness, lymphadenopathy - Respiratory Respiratory exam: Present: normal lung sounds bilaterally. Absent: respiratory distress, wheezes, rales, rhonchi, chest wall tenderness - Cardiovascular Cardiovascular Exam: Present: regular rate, normal heart sounds - GI/Abdominal GI/Abdominal exam: Present: soft, tenderness (Epigastric area), normal bowel sounds. Absent: distended, guarding, rebound, rigid - Extremities Exam Extremities exam: Present: normal inspection, normal capillary refill. Absent: pedal edema, joint swelling, calf tenderness - Back Exam Back exam: Present: normal inspection. Absent: CVA tenderness (R), CVA tenderness (L) - Neurological Exam Neurological exam: Present: alert, oriented X3 - Psychiatric Psychiatric exam: Present: normal affect, normal mood - Skin Skin exam: Present: warm, dry, intact, normal color ED Course Vital Signs 10/20/21 10/20/21 10/20/21 14:03 16:03 16:04 Temperature 98.5 F 98.5 F Pulse Rate 86 77 Respiratory 18 20 Rate Blood Pressure 134/101 Blood Pressure 132/85 [Right] O2 Sat by Pulse 100 100 100 Oximetry 10/20/21 10/20/21 16:25 19:44 Temperature 97.9 F 98.5 F Pulse Rate 71 77 Respiratory 20 20 Rate Blood Pressure Blood Pressure 124/79 124/78 [Right] O2 Sat by Pulse 100 100 Oximetry - Reevaluation(s) Reevaluation #1: 10/20/21 19:14 N/V and abdominal pain mostly resolved. ED Medical Decision Making - Lab Data Result diagrams: 10/20/21 15:42 10/20/21 15:42 - Medical Decision Making 36-year-old black female with a past medical history of diabetes reports with emergency department for evaluation of 4-day history of nausea and vomiting with intermittent abdominal pain. She states that she vomits at least 5-6 times per day and has not been able to keep anything down. She denies fever, dysuria, vaginal discharge, chest pain, shortness of breath, dizziness, and diaphoresis. No gross abnormalities noted on labs or on physical exam. Nausea vomiting abdominal pain improved after medication. Patient will be discharged home with Reglan and Bentyl to use as needed for symptoms. She is advised to follow-up with her primary care provider for further evaluation and management. She is advised to return to the emergency department for any concerning symptoms. She verbalized understanding of and agreement with plan of care. Critical care attestation.: If time is entered above; I have spent that time in minutes in the direct care of this critically ill patient, excluding procedure time. ED Disposition Clinical Impression: Nausea & vomiting Qualifiers: Vomiting type: unspecified Qualified Code(s): R11.2 - Nausea with vomiting, unspecified Abdominal pain Qualifiers: Abdominal location: generalized Qualified Code(s): R10.84 - Generalized abdominal pain Disposition: 01 HOME / SELF CARE / HOMELESS Is pt being admited?: No Does the pt Need Aspirin: No Condition: Stable Instructions: Nausea and Vomiting, Adult, [id number], Abdominal Pain, Adult, [id number] Additional Instructions: Take medications as prescribed. Follow-up with primary care provider for further evaluation and management. Return to the emergency department as needed Prescriptions: Dicyclomine [Bentyl] 20 mg PO QID PRN #21 tablet PRN Reason: Pain, Moderate (4-6) Metoclopramide [Reglan] 10 mg PO TID PRN #21 tab PRN Reason: Nausea And Vomiting Referrals: CITLALY MAR MD [Referring] - 3-5 Days AMRIK FLOOD MD [Referring] - 3-5 Days Time of Disposition: 19:17
[2021-10-20 19:45] VITALS: BP 124/78
== END 2021-10-20 19:44 | disposition home or self-care (01) ==
LOC: ED 13:58
DX: R11.2 Nausea with vomiting, unspecified (principal); R10.84 Generalized abdominal pain; I10 Essential (primary) hypertension; E11.9 Type 2 diabetes mellitus without complications; Z98.890 Other specified postprocedural states; Z79.899 Other long term (current) drug therapy
CPT/HCPCS: 36415; 80053; 81001; 81025; 82962; 83690; 85027; 96361; 96372; 96374; 96375; 96376; 99283; J0500; J1200; J1885; J2405; J2765; J7030

== ENCOUNTER 2021-12-01 11:36 | Emergency (ER) | payer OTHER ==
[2021-12-01 12:10] VITALS: BP 128/94
[2021-12-01] MEDS ORDERED: ONDANSETRON 4 MG/2 ML INJ IV ONE ×2 (15:16→21:15)
[2021-12-01] MEDS ORDERED: SODIUM CHLORIDE 0.9% 1000 ML 1,000 ML IV ONE (15:16)
[2021-12-01 16:24] LABS: Hematocrit 34.9 % (30.3-42.9); Hemoglobin 11.2 gm/dl (10.1-14.3); Mean Corpuscular HGB Conc 32 % (30-34); Mean Corpuscular Volume 72 fl (79-97); Platelet Count 287 K/mm3 (140-440); Red Blood Count 4.85 M/mm3 (3.65-5.03); Red Cell Distribution Width 19.6 % (13.2-15.2)
[2021-12-01 16:37] LABS: Alanine Aminotransferase 11 units/L (7-56); Albumin 5.2 g/dL (3.9-5); Blood Urea Nitrogen 15 mg/dL (7-17); Calcium 9.4 mg/dL (8.4-10.2); Hemolysis Index 0
[2021-12-01 16:40] LABS: BUN/Creatinine Ratio 21
[2021-12-01] MEDS ORDERED: FAMOTIDINE 20 MG/2 ML INJ IV ONE (21:14)
[2021-12-01] MEDS ORDERED: MORPHINE 4 MG/1 ML INJ IV ONE (21:14)
--- NOTE | 2021-12-01 22:33 | Cat Scan Report ---
CT ABDOMEN AND PELVIS WITH CONTRAST INDICATION / CLINICAL INFORMATION: Abdominal pain, N/V/D. TECHNIQUE: Axial CT images were obtained through the abdomen and pelvis after 100 cc of Omnipaque [address] scans at this location are performed using CT dose reduction for ALARA by means of automated exposure control. COMPARISON: 10/02/2021 FINDINGS: LOWER CHEST: No significant abnormality. LIVER: No significant abnormality. GALLBLADDER: No significant abnormality. BILE DUCTS: No significant abnormality. PANCREAS: No significant abnormality. SPLEEN: No significant abnormality. ADRENALS: No significant abnormality. RIGHT KIDNEY / URETER: No significant abnormality. LEFT KIDNEY / URETER: No significant abnormality. STOMACH / SMALL BOWEL: No significant abnormality. COLON: No significant abnormality. APPENDIX: No significant abnormality. PERITONEUM: No free fluid. No free air. No fluid collection. LYMPH NODES: No significant adenopathy. AORTA / ARTERIES: No significant abnormality. IVC / VEINS: No significant abnormality. URINARY BLADDER: No significant abnormality. REPRODUCTIVE ORGANS: No significant abnormality. ADDITIONAL FINDINGS: None. SKELETAL SYSTEM: No significant abnormality. IMPRESSION: 1. There is no obstruction, inflammation, or free air. There are no abnormal fluid collections. Signer Name: Sj Aguilar MD Signed: 12/01/2021 10:29 PM Workstation Name: [id number]
[2021-12-02 00:45] LABS: Bilirubin,Urine NEG (Negative); Blood,Urine NEG (Negative); Color,Urine Yellow (Yellow); Mucus,Urine 3+ /HPF; Urobilinogen,Urine < 2.0 mg/dL (<2.0)
[2021-12-02] MEDS ORDERED: METOCLOPRAMIDE 10 MG/2 ML INJ IV ONE (00:54)
[2021-12-02] MEDS ORDERED: KETOROLAC 30 MG/1 ML INJ IV ONE (00:54)
[2021-12-02] MEDS ORDERED: diphenhydrAMINE 50 MG/ML VIAL IV ONE (00:54)
--- NOTE | 2021-12-02 01:38 | Emergency Department Report ---
ED Abdominal Pain HPI - General Chief Complaint: Abdominal Pain Stated Complaint: ABD PAIN/NAUSEA/VOMITING/DIARRHEA Source: patient Mode of arrival: Ambulatory Limitations: No Limitations - History of Present Illness Initial Comments: Patient is a 36-year-old -[place] female with a history of hypertension, diabetes, hypothyroidism, and diverticulitis who presents to the ED with complaint of acute onset persistent nausea and vomiting and diarrhea with diffuse abdominal pain radiating to the lower abdomen for the last 4 days. Patient states that the last 2 days he has not been able to keep anything down because of intractable nausea and vomiting and worsening pain. Patient denies hematochezia, hematemesis, dizziness, syncope, dysuria, urinary frequency and urgency, fever, chills, chest pain or shortness of breath, vaginal bleeding or low back pain. MD Complaint: abdominal pain (Diffuse abdominal pain), other (Nausea and vomiting and diarrhea) -: days(s) (4) Location: diffuse Radiation: none Migration to: no migration Severity: severe Severity scale (0 -10): 10 Quality: cramping, sharp Consistency: constant Improves With: nothing Worsens With: eating, vomiting Context: possible food poisoning Associated Symptoms: denies other symptoms, nausea, vomiting, diarrhea. denies: fever, chills, constipation, dysuria, hematemesis, hematochezia, melena, anorexia, syncope - Related Data Previous Rx's Medication Instructions Recorded Last Taken Type Cholestyramine (with Sugar) 4 gm PO BID #30 packet 05/01/18 Unknown Rx [Questran] Metoprolol [Lopressor TAB] 25 mg PO BID #60 tablet 05/01/18 Unknown Rx methIMAzole [Tapazole] 10 mg PO Q24HR #30 tablet 05/01/18 Unknown Rx metroNIDAZOLE [Flagyl TAB] 500 mg PO Q8H #30 tablet 05/01/18 Unknown Rx oxyCODONE /ACETAMINOPHEN [Percocet 1 tab PO Q4HR #12 tab 05/01/18 Unknown Rx 5/325] Metoclopramide [Reglan] 10 mg PO TID PRN #20 tab 08/23/21 Unknown Rx metFORMIN [Glucophage] 500 mg PO BID #60 tablet 08/23/21 Unknown Rx Vashti Root [Vashti] 250 mg PO QID PRN #30 capsule 08/26/21 Unknown Rx Nicotine Polacrilex [Nicotine Gum] 4 mg BC PRN #1 pack 08/26/21 Unknown Rx Glimepiride [Amaryl] 1 mg PO QAM #30 tab 10/02/21 Unknown Rx HYDROcodone/APAP 5-325 [[place] 1 each PO Q6HR PRN #15 tablet 10/02/21 Unknown Rx 5-325 mg TAB] Ondansetron [Zofran ODT TAB] 4 mg PO Q6HR PRN #20 tab.rapdis 10/02/21 Unknown Rx Metoclopramide [Reglan] 10 mg PO TID PRN #21 tab 10/20/21 Unknown Rx Dicyclomine [Bentyl] 20 mg PO QID PRN #30 tablet 12/02/21 Unknown Rx Famotidine [Pepcid] 20 mg PO BID #30 tablet 12/02/21 Unknown Rx Ketorolac [Toradol] 10 mg PO Q8H PRN #20 tab 12/02/21 Unknown Rx Ondansetron [Zofran ODT TAB] 4 mg PO Q6H PRN #20 tab.rapdis 12/02/21 Unknown Rx Promethazine HCl [Phenergan SUPPOS] 25 mg RC Q6HR PRN #20 supp 12/02/21 Unknown Rx Allergies Allergy/AdvReac Type Severity Reaction Status Date / Time No Known Allergies Allergy Verified 12/01/21 12:11 ED Review of Systems ROS: Stated complaint: ABD PAIN/NAUSEA/VOMITING/DIARRHEA Other details as noted in HPI Constitutional: malaise. denies: chills, fever, weakness Eyes: denies: eye pain, eye discharge, vision change ENT: denies: ear pain, throat pain Respiratory: denies: cough, shortness of breath, wheezing Cardiovascular: denies: chest pain, palpitations Endocrine: no symptoms reported Gastrointestinal: abdominal pain, nausea, vomiting, diarrhea Genitourinary: denies: urgency, dysuria, discharge Musculoskeletal: denies: back pain, joint swelling, arthralgia Skin: denies: rash, lesions Neurological: denies: headache, weakness, paresthesias Psychiatric: denies: anxiety, depression Hematological/Lymphatic: denies: easy bleeding, easy bruising ED Past Medical Hx - Past Medical History Previous Medical History?: Yes Hx Hypertension: Yes Hx Heart Attack/AMI: No Hx Congestive Heart Failure: No Hx Diabetes: Yes Hx Deep Vein Thrombosis: No Hx Liver Disease: No Hx Renal Disease: No Hx Sickle Cell Disease: No Hx Seizures: No Hx Psychiatric Treatment: No Hx Asthma: No Hx COPD: No Hx HIV: No Additional medical history: hyperthyroid, colitis - Surgical History Additional Surgical History: c sect - Social History Smoking Status: Never Smoker Substance Use Type: None - Medications Home Medications: Home Medications Medication Instructions Recorded Confirmed Last Taken Type Cholestyramine (with Sugar) 4 gm PO BID #30 packet 05/01/18 Unknown Rx [Questran] Metoprolol [Lopressor TAB] 25 mg PO BID #60 tablet 05/01/18 Unknown Rx methIMAzole [Tapazole] 10 mg PO Q24HR #30 tablet 05/01/18 Unknown Rx metroNIDAZOLE [Flagyl TAB] 500 mg PO Q8H #30 tablet 05/01/18 Unknown Rx oxyCODONE /ACETAMINOPHEN [Percocet 1 tab PO Q4HR #12 tab 05/01/18 Unknown Rx 5/325] Metoclopramide [Reglan] 10 mg PO TID PRN #20 tab 08/23/21 Unknown Rx metFORMIN [Glucophage] 500 mg PO BID #60 tablet 08/23/21 Unknown Rx Vashti Root [Vashti] 250 mg PO QID PRN #30 capsule 08/26/21 Unknown Rx Nicotine Polacrilex [Nicotine Gum] 4 mg BC PRN #1 pack 08/26/21 Unknown Rx Glimepiride [Amaryl] 1 mg PO QAM #30 tab 10/02/21 Unknown Rx HYDROcodone/APAP 5-325 [[place] 1 each PO Q6HR PRN #15 tablet 10/02/21 Unknown Rx 5-325 mg TAB] Ondansetron [Zofran ODT TAB] 4 mg PO Q6HR PRN #20 tab.rapdis 10/02/21 Unknown Rx Metoclopramide [Reglan] 10 mg PO TID PRN #21 tab 10/20/21 Unknown Rx Dicyclomine [Bentyl] 20 mg PO QID PRN #30 tablet 12/02/21 Unknown Rx Famotidine [Pepcid] 20 mg PO BID #30 tablet 12/02/21 Unknown Rx Ketorolac [Toradol] 10 mg PO Q8H PRN #20 tab 12/02/21 Unknown Rx Ondansetron [Zofran ODT TAB] 4 mg PO Q6H PRN #20 tab.rapdis 12/02/21 Unknown Rx Promethazine HCl [Phenergan SUPPOS] 25 mg RC Q6HR PRN #20 supp 12/02/21 Unknown Rx ED Physical Exam - General Limitations: No Limitations General appearance: alert, in no apparent distress - Head Head exam: Present: atraumatic, normocephalic, normal inspection - Eye Eye exam: Present: normal appearance, PERRL, EOMI Pupils: Present: normal accommodation - ENT ENT exam: Present: normal exam, normal orophraynx, mucous membranes moist, TM's normal bilaterally, normal external ear exam - Neck Neck exam: Present: normal inspection, full ROM. Absent: tenderness - Respiratory Respiratory exam: Present: normal lung sounds bilaterally. Absent: respiratory distress, wheezes, rales, stridor, chest wall tenderness, accessory muscle use, decreased breath sounds, prolonged expiratory - Cardiovascular Cardiovascular Exam: Present: regular rate, normal rhythm, normal heart sounds. Absent: systolic murmur, diastolic murmur, rubs, gallop - GI/Abdominal GI/Abdominal exam: Present: soft, tenderness (Palpable diffuse lower abdominal tenderness), normal bowel sounds. Absent: guarding, rebound, hyperactive bowel sounds, hypoactive bowel sounds, organomegaly - Bi-manual exam: Present: other (Pelvic exam deferred at this time) - Extremities Exam Extremities exam: Present: normal inspection, full ROM, normal capillary refill - Back Exam Back exam: Present: normal inspection, full ROM. Absent: tenderness, CVA tenderness (L), muscle spasm, paraspinal tenderness, vertebral tenderness - Neurological Exam Neurological exam: Present: alert, oriented X3, CN II-XII intact, normal gait, reflexes normal - Psychiatric Psychiatric exam: Present: normal affect, normal mood - Skin Skin exam: Present: warm, dry, intact, normal color. Absent: rash ED Course Vital Signs 12/01/21 12/01/21 12/02/21 12:07 21:33 01:02 Temperature 98.4 F Pulse Rate 91 H Respiratory 16 18 18 Rate Blood Pressure 128/94 O2 Sat by Pulse 100 Oximetry ED Medical Decision Making - Lab Data Result diagrams: 12/01/21 15:26 12/01/21 15:26 - Radiology Data Radiology results: report reviewed, image reviewed [facility] [address] [place] [address] Cat Scan Report Signed Patient: JULIANNA SCHULZ MR# : [id number] : 1985 Acct:[id number] Age/Sex: 36 / F ADM Date: 12/01/21 Loc: ED Attending Dr: Ordering Physician: GIULIANO HU Date of Service: 12/01/21 Procedure(s): CT abdomen pelvis w con Accession Number(s): [id number] cc: GIULIANO HU CT ABDOMEN AND PELVIS WITH CONTRAST INDICATION / CLINICAL INFORMATION: Abdominal pain, N/V/D. TECHNIQUE: Axial CT images were obtained through the abdomen and pelvis after 100 cc of Omnipaque [address] scans at this location are performed using CT dose reduction for ALARA by means of automated exposure control. COMPARISON: 10/02/2021 FINDINGS: LOWER CHEST: No significant abnormality. LIVER: No significant abnormality. GALLBLADDER: No significant abnormality. BILE DUCTS: No significant abnormality. PANCREAS: No significant abnormality. SPLEEN: No significant abnormality. ADRENALS: No significant abnormality. RIGHT KIDNEY / URETER: No significant abnormality. LEFT KIDNEY / URETER: No significant abnormality. STOMACH / SMALL BOWEL: No significant abnormality. COLON: No significant abnormality. APPENDIX: No significant abnormality. PERITONEUM: No free fluid. No free air. No fluid collection. LYMPH NODES: No significant adenopathy. AORTA / ARTERIES: No significant abnormality. IVC / VEINS: No significant abnormality. URINARY BLADDER: No significant abnormality. REPRODUCTIVE ORGANS: No significant abnormality. ADDITIONAL FINDINGS: None. SKELETAL SYSTEM: No significant abnormality. IMPRESSION: 1. There is no obstruction, inflammation, or free air. There are no abnormal fluid collections. Signer Name: Sj Aguilar MD Signed: 12/01/2021 10:29 PM Workstation Name: [id number] Transcribed By: Dictated By: Sj Aguilar MD Electronically Authenticated By: Sj Aguilar MD Signed Date/Time: 12/01/212228 DD/ 25 TD/TT: - Medical Decision Making This is a 36-year-old -[place] female with a history of hypertension, diabetes, hypothyroidism, and diverticulitis who presents to the ED with complaint of acute onset persistent nausea and vomiting and diarrhea with diffuse abdominal pain radiating to the lower abdomen for the last 4 days. Patient states that the last 2 days he has not been able to keep anything down because of intractable nausea and vomiting and worsening pain. In the ED, patient is alert and oriented x3 and is not in any distress. Patient was treated for pain in the ED and also received antiemetics and antacids. Urinalysis is unremarkable. The rest of the lab test results were reviewed and are all nonactionable. Abdomen pelvis CT scan with IV contrast showed no acute abnormalities. On reevaluation, patient's pain is well controlled medication. Nausea and vomiting have also been controlled. Patient will discharge home on medications including antiemetics, antispasmodics and antacids, and advised to maintain a clear liquid diet for 12 to 24 hours, and to follow-up with her primary care physician in 5 to 7 days for reevaluation or return to the ED immediately if symptoms get worse. - Differential Diagnosis Viral gastroenteritis; diverticulitis; UTI; ovarian cyst; appendicitis; Critical care attestation.: If time is entered above; I have spent that time in minutes in the direct care of this critically ill patient, excluding procedure time. ED Disposition Clinical Impression: Abdominal pain in female patient, Nausea, vomiting and diarrhea, Viral gastroenteritis Disposition: 01 HOME / SELF CARE / HOMELESS Is pt being admited?: No Does the pt Need Aspirin: No Condition: Stable Instructions: Abdominal Pain (ED), Viral Gastroenteritis, Adult, [id number], Abdominal Pain, Adult, [id number], Nausea and Vomiting, Adult, [id number], Diarrhea, Adult, [id number] Additional Instructions: All lab test results were reviewed and are all nonactionable. Abdomen pelvis CT scan with IV contrast also showed no acute abnormalities. Your symptoms are likely due to viral gastroenteritis. Therefore maintain a clear liquid diet for 12 to 24 hours, drink plenty of fluids, take medication as needed for nausea and vomiting and pain, follow-up with your primary care physician in 5 to 7 days for reevaluation or return to the ED immediately if your symptoms get worse. Prescriptions: Dicyclomine [Bentyl] 20 mg PO QID PRN #30 tablet PRN Reason: Pain , Severe (7-10) Famotidine [Pepcid] 20 mg PO BID #30 tablet Promethazine HCl [Phenergan SUPPOS] 25 mg RC Q6HR PRN #20 supp PRN Reason: Nausea Ketorolac [Toradol] 10 mg PO Q8H PRN #20 tab PRN Reason: Pain Ondansetron [Zofran ODT TAB] 4 mg PO Q6H PRN #20 tab.rapdis PRN Reason: Nausea And Vomiting Referrals: [facility] [Provider Group] - 3-5 Days Forms: Work/School Release Form(ED) Time of Disposition: 01:40 Print Language: MALIAN
== END 2021-12-02 02:28 | disposition home or self-care (01) ==
LOC: ED 11:36
DX: R10.9 Unspecified abdominal pain (principal); R11.2 Nausea with vomiting, unspecified; R19.7 Diarrhea, unspecified; A08.4 Viral intestinal infection, unspecified; I10 Essential (primary) hypertension; E11.9 Type 2 diabetes mellitus without complications
CPT/HCPCS: 36415; 74177; 80053; 81001; 82805; 83690; 84703; 85027; 96361; 96374; 96375; 99284; J1200; J1885; J2270; J2405; J2765; J3490; Q9967